=== PATIENT | male | born 1950 | race Caucasian/White ===

== ENCOUNTER 2017-03-03 14:34 | Inpatient (IN) | payer BC ==
[~2017-03-03] VITALS: Ht 190.5 cm; Wt 121.5 kg
[~2017-03-03 14:34] MED LIST: CLBCR15 EXT; CRS10 PO; DPRCR15 EXT; IBUP-1050 PO; OMEG10007 PO; flax seed oil PO
--- NOTE | 2017-03-03 14:59 | EMERGENCY ROOM VISIT NOTE ---
History Report prepared by Yoana: Dameon Christina Under the Supervision of: Dr. Trista Rosenberg D.O. First contact with patient: 14:40 Chief Complaint: KIDNEY STONE Stated Complaint: PAIN IN L KIDNEY, SENT BY DR BARAJAS OFFICE History of Present Illness The patient is a 66 year old male who presents to the Emergency Room with complaints of persistent left flank pain since February 20, 2017. He notes the pain does not radiate. He currently rates his pain a 7/10 in severity. He denies any fevers, chills, urinary symptoms, leg swelling, rashes, or sores. He was recently seen at [facility] and was diagnosed with a .5 inch impassable left kidney stone. He was advised to come to the ED to have the on- call urologist evaluate his case. He has taken Advil for the pain. He has a family history of kidney stones. He denies taking any blood thinners. Source of History: patient Onset: February 20, 2017 Position: other (left flank ) Symptom Intensity: 7/10 Timing: other (persistent) Associated Symptoms: No fevers, No chills, No urinary symptoms, No rash Note: He notes left flank pain. He denies leg swelling or sores. Review of Systems See HPI for pertinent positives & negatives. A total of 10 systems reviewed and were otherwise negative. Past Medical & Surgical Medical Problems: (1) JESSICA (acute kidney injury) (2) Asthma (3) Bronchitis (4) Carpal tunnel syndrome (5) HTN (hypertension) (6) Ureteral mass Surgical Problems: (1) History of bilateral knee replacement Family History FH: cancer Hypertension Social History Smoking Status: Never Smoker Smokeless Tobacco Use: No Alcohol Use: none Drug Use: none Marital Status: Housing Status: lives with significant other Occupation Status: retired Current/Historical Medications Scheduled Amlodipine (Norvasc), 5 MG PO HS Lisinopril (Zestril), 20 MG PO DAILY Montelukast Sodium (Singulair), 10 MG PO DAILY Nitrofurantoin Macrocrystals (Macrodantin), 1 CAP PO BID Simvastatin (Zocor), 40 MG PO DAILY Scheduled PRN Acetaminophen (Mapap), 650 MG PO Q6H PRN for Pain or Fever Cetirizine (Zyrtec), 10 MG PO DAILY PRN for ALLERGIES Doxepin (Sinequan), 10 MG PO TID PRN for BREAKOUT Tramadol HCl (Tramadol HCl), 1 TAB PO Q8H PRN for severe pain Allergies Coded Allergies: Amoxicillin (Unverified Allergy, Severe, SEVER HIVES AND SWELLING, ) Penicillins (Verified Allergy, Intermediate, SWELLING IN HANDS AND LEGS, 03/03/17) Latex1 -Allergic Contact Dermititis (Verified Allergy, Mild, HANDS BURNING AND ITCHING, 03/03/17) Physical Exam Vital Signs Date Time Temp Pulse Resp B/P (MAP) Pulse Ox O2 Delivery O2 Flow Rate FiO2 03/03/17 16:01 68 18 149/98 98 Room Air 03/03/17 14:39 36.8 88 18 182/116 96 Room Air Physical Exam GENERAL: alert, well appearing, well nourished, no distress, non-toxic EYE EXAM: normal conjunctiva, PERRL and EOM's grossly intact OROPHARYNX: no exudate, no erythema, lips, buccal mucosa, and tongue normal and mucous membranes are moist NECK: supple, no nuchal rigidity, no adenopathy, non-tender LUNGS: Clear to auscultation. Normal chest wall mechanics HEART: no murmurs, S1 normal and S2 normal ABDOMEN: abdomen soft, non-tender, normo-active bowel sounds, no masses, no rebound or guarding. BACK: Back is symmetrical on inspection and there is no deformity, no midline tenderness, no CVA tenderness. SKIN: no rashes and no bruising UPPER EXTREMITIES: upper extremities are grossly normal. LOWER EXTREMITIES: No pitting edema. NEURO EXAM: Normal sensorium, cranial nerves II-XII grossly intact, normal speech, no gross weakness of arms, no gross weakness of legs. Medical Decision & Procedures ER Provider Diagnostic Interpretation: Radiology results have been interpreted by the radiologist and reviewed by me. CT OF THE ABDOMEN AND PELVIS WITHOUT CONTRAST, STONE PROTOCOL CLINICAL HISTORY: Left flank pain. Possible stone on ultrasound. COMPARISON STUDY: None. TECHNIQUE: Helical axial images of the abdomen and pelvis were obtained without IV or oral contrast according to renal stone protocol. A dose lowering technique was utilized adhering to the principles of ALARA. FINDINGS: Visualized portions of the lower chest demonstrate moderate cardiomegaly. Unenhanced images of liver, spleen, adrenal glands and pancreas are unremarkable. There is no right hydronephrosis. Note is made of a nonobstructing 9 mm distal right ureteral calculus. There is mild left hydronephrosis with moderate left perinephric infiltration. The left ureter is dilated to the level of the mid ureter with distention of the ureter with a suspected soft tissue mass that measures approximately 2.4 x 1.3 x 1 cm and is shown on axial image 351 of 536. There is extensive para-aortic and left iliac lymphadenopathy. An index left para-aortic lymph node measures 4.4 x 2.6 cm. An index left common iliac node measures 3.2 x 2 cm and an index left internal iliac node measures 2.7 x 2 cm. A borderline enlarged left external iliac node measures 1 cm. No suspicious osseous lesions are present. There is no evidence for a bowel obstruction. A 3.4 cm water attenuation left renal lesion is suboptimally assessed on this exam but favors a cyst. IMPRESSION: 1. Mild left hydroureteronephrosis due to a suspected obstructing mid left ureteral mass that measures approximately 2.3 x 1.3 x 1 cm. 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 Urologic consultation is recommended. 2. Extensive paraaortic and left iliac chain lymphadenopathy which is consistent with a neoplastic process. The degree of lymphadenopathy is greater than expected given the size of the left ureteral lesion however cindy spread of TCC is the diagnosis of exclusion. Lymphoma could appear similar although is considered less likely. 3. Nonobstructing 9 mm distal right ureteral calculus. No upstream dilatation. Electronically signed by: Kranthi Vasquez M.D. 03/03/2017 4:11 PM Dictated Date/Time: 03/03/2017 3:50 PM Laboratory Results Test 03/03/17 15:00 03/03/17 15:03 Urine Color YELLOW Urine Appearance CLEAR (CLEAR) Urine pH 5.0 (4.5-7.5) Urine Specific Etta 1.016 (1.000-1.030) Urine Protein NEG (NEG) Urine Glucose (UA) NEG (NEG) Urine Ketones NEG (NEG) Urine Occult Blood NEG (NEG) Urine Nitrite NEG (NEG) Urine Bilirubin NEG (NEG) Urine Urobilinogen NEG (NEG) Urine Leukocyte Esterase NEG (NEG) Immature Granulocyte % (Auto) 0.5 % White Blood Count 6.28 K/uL (4.8-10.8) Red Blood Count 4.81 M/uL (4.7-6.1) Hemoglobin 15.0 g/dL (14.0-18.0) Hematocrit 45.0 % (42-52) Mean Corpuscular Volume 93.6 fL (80-100) Mean Corpuscular Hemoglobin 31.2 pg (25-34) Mean Corpuscular Hemoglobin Concent 33.3 g/dl (32-36) Platelet Count 173 K/uL (130-400) Mean Platelet Volume 9.8 fL (7.4-10.4) Neutrophils (%) (Auto) 63.1 % Lymphocytes (%) (Auto) 22.1 % Monocytes (%) (Auto) 8.4 % Eosinophils (%) (Auto) 5.1 % Basophils (%) (Auto) 0.8 % Neutrophils # (Auto) 3.96 K/uL (1.4-6.5) Lymphocytes # (Auto) 1.39 K/uL (1.2-3.4) Monocytes # (Auto) 0.53 K/uL (0.11-0.59) Eosinophils # (Auto) 0.32 K/uL (0-0.5) Basophils # (Auto) 0.05 K/uL (0-0.2) Immature Granulocyte # (Auto) 0.03 K/uL (0.00-0.02) Prothrombin Time 10.6 SECONDS (9.0-12.0) Prothromb Time International Ratio 1.0 (0.9-1.1) Total Bilirubin 0.7 mg/dl (0.2-1) Aspartate Amino Transf (AST/SGOT) 24 U/L (15-37) Alanine Aminotransferase (ALT/SGPT) 30 U/L (12-78) Alkaline Phosphatase 97 U/L (45-117) Total Protein 8.1 gm/dl (6.4-8.2) Albumin 4.0 gm/dl (3.4-5.0) Globulin 4.1 gm/dl (2.5-4.0) Albumin/Globulin Ratio 1.0 (0.9-2) Hepatitis C Antibody Screen NEG (NEG) Laboratory results per my review. ECG Indication: other (left flank pain) Rate (beats per minute): 82 Rhythm: normal sinus Findings: 1st degree AV block, no acute ischemic change, other (Normal axis. Normal QRS and QTC. Abherrent baseline. ) ED Course 1442: The patient was evaluated in room C3. A complete history and physical exam was performed. 1455: Results from [facility] was faxed and the US report shows a 12 mm stone in proximal left ureter. 1600: I reassessed the patient at this time. I updated on all results. The patient is in need of additional evaluation. 1625: I spoke with roel Gonzalez. We discussed the patients case. The patient will be evaluated by the [facility] for further management. 1659: I spoke with tona Greene. We discussed the patients case. He will consult with the patient. Medical Decision Prior records/ancillary studies reviewed. Triage Nursing notes reviewed. The patient's history was concerning for kidney stone. Differential diagnosis: Etiologies such as renal colic, appendicitis, diverticulitis, mesenteric ischemia, aortic pathology, infections, inflammatory bowel disease, PUD, biliary pathology, UTI, as well as others were entertained. Patient well-appearing here despite acute renal failure, kidney stone, as well as ureteral mass noted on CT. Patient offered pain medication and he declined. No evidence of bacteremia/sepsis, no evidence of UTI or pyelonephritis. Large stones seen on the right, however patient's pain more on the left, more consistent with the ureteral mass and hydronephrosis seen. Medication Reconcilliation Current Medication List: was personally reviewed by me Blood Pressure Screening Patient's blood pressure: Elevated blood pressure Blood pressure disposition: Elevated BP felt to be situational Consults Time Called: 1620 Consulting Physician: roel Gonzalez Returned Call: 1625 I spoke with roel Gonzalez. We discussed the patients case. The patient will be evaluated by the [facility] for further management. Additional Consults: Time Called: 165 Consulted Physician: tona Greene Returned Call: 165 Additional Comments: I spoke with tona Greene. We discussed the patients case. He will consult with the patient. Impression Primary Impression: Left-sided back pain Additional Impressions: Left ureteral calculus Ureteral mass Acute renal failure Scribe Attestation The scribe's documentation has been prepared under my direction and personally reviewed by me in its entirety. I confirm that the note above accurately reflects all work, treatment, procedures, and medical decision making performed by me. Departure Information Dispostion Being Evaluated By Hospitalist Prescriptions Tramadol HCl (Tramadol HCl) 50 Mg Tab 1 TAB PO Q8H Y for severe pain for 5 Days, #15 TAB 0 Refills Prov: Kei Alexis M.D. 03/04/17 Lisinopril (Zestril) 20 Mg Tab 20 MG PO DAILY for 30 Days, #30 TAB Prov: Kei Alexis M.D. 03/04/17 Amlodipine (Norvasc) 5 Mg Tab 5 MG PO HS for 30 Days, #30 TAB Prov: Kei Alexis M.D. 03/04/17 Nitrofurantoin Macrocrystals (Macrodantin) 50 Mg Cap 1 CAP PO BID for 7 Days, #14 CAP Prov: Kei Alexis M.D. 03/04/17 Acetaminophen (MAPAP) 325 Mg Tab 650 MG PO Q6H Y for Pain or Fever for 5 Days, #16 TAB 0 Refills Take 1 tablet By mouth every 6 hours for pain relief Prov: Kei Alexis M.D. 03/04/17 Referrals Joel Gaona D.O. (PCP) Patient Instructions [facility] Problem Qualifiers
[2017-03-03 15:10] LABS: URINE APPEARANCE CLEAR (CLEAR); URINE BILIRUBIN NEG (NEG); URINE COLOR YELLOW; URINE NITRITE NEG (NEG); URINE SPECIFIC GRAVITY 1.016 (1.000-1.030); UROBILINOGEN NEG (NEG); ZZUR CULT IF INDIC CLEAN CATCH NO
[2017-03-03 15:15] LABS: MANUAL MICROSCOPIC REQUIRED? NO; REVIEW REQ? NO
[2017-03-03 15:19] LABS: BASO % 0.8 %; BASO ABS # 0.05 K/uL (0-0.2); COMPLETE YES; EOS % 5.1 %; IG% 0.5 %; LYMPH % 22.1 %; LYMPH ABS # 1.39 K/uL (1.2-3.4); MEAN CELL VOLUME 93.6 fL (80-100); MEAN CORPUSCULAR HEMOGLOBIN 31.2 pg (25-34); MEAN CORPUSCULAR HGB CONC 33.3 g/dl (32-36); MEAN PLATELET VOLUME 9.8 fL (7.4-10.4); MONO % 8.4 %; NEUT % 63.1 %; PLATELET COUNT 173 K/uL (130-400); RED BLOOD COUNT 4.81 M/uL (4.7-6.1); WHITE BLOOD COUNT 6.28 K/uL (4.8-10.8)
[2017-03-03] MEDS ORDERED: HYDR12.55 PO (15:25)
[2017-03-03] MEDS ORDERED: DOXE10CA PO (15:25)
[2017-03-03] MEDS ORDERED: LISI40TA PO (15:25)
[2017-03-03] MEDS ORDERED: SIMV40TA2 PO (15:25)
[2017-03-03] MEDS ORDERED: CETI10TA84 PO (15:25)
[2017-03-03] MEDS ORDERED: MONT1TAB3 PO (15:25)
[2017-03-03 15:27] LABS: PROTHROMBIN TIME (PATIENT) 10.6 SECONDS (9.0-12.0)
[2017-03-03 15:38] LABS: BUN/CREATININE RATIO 16.1 (10-20); CREATININE 2.31 mg/dl (0.60-1.40); POTASSIUM 3.8 mmol/L (3.5-5.1)
[2017-03-03 16:01] VITALS: O2SAT 98
--- NOTE | 2017-03-03 16:12 | DIAGNOSTIC IMAGING REPORT ---
CT OF THE ABDOMEN AND PELVIS WITHOUT CONTRAST, STONE PROTOCOL CLINICAL HISTORY: Left flank pain. Possible stone on ultrasound. COMPARISON STUDY: None. TECHNIQUE: Helical axial images of the abdomen and pelvis were obtained without IV or oral contrast according to renal stone protocol. A dose lowering technique was utilized adhering to the principles of ALARA. FINDINGS: Visualized portions of the lower chest demonstrate moderate cardiomegaly. Unenhanced images of liver, spleen, adrenal glands and pancreas are unremarkable. There is no right hydronephrosis. Note is made of a nonobstructing 9 mm distal right ureteral calculus. There is mild left hydronephrosis with moderate left perinephric infiltration. The left ureter is dilated to the level of the mid ureter with distention of the ureter with a suspected soft tissue mass that measures approximately 2.4 x 1.3 x 1 cm and is shown on axial image 351 of 536. There is extensive para-aortic and left iliac lymphadenopathy. An index left para-aortic lymph node measures 4.4 x 2.6 cm. An index left common iliac node measures 3.2 x 2 cm and an index left internal iliac node measures 2.7 x 2 cm. A borderline enlarged left external iliac node measures 1 cm. No suspicious osseous lesions are present. There is no evidence for a bowel obstruction. A 3.4 cm water attenuation left renal lesion is suboptimally assessed on this exam but favors a cyst. IMPRESSION: 1. Mild left hydroureteronephrosis due to a suspected obstructing mid left ureteral mass that measures approximately 2.3 x 1.3 x 1 cm. 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 Urologic consultation is recommended. 2. Extensive paraaortic and left iliac chain lymphadenopathy which is consistent with a neoplastic process. The degree of lymphadenopathy is greater than expected given the size of the left ureteral lesion however cindy spread of TCC is the diagnosis of exclusion. Lymphoma could appear similar although is considered less likely. 3. Nonobstructing 9 mm distal right ureteral calculus. No upstream dilatation. Electronically signed by: Kranthi Vasquez M.D. 03/03/2017 4:11 PM Dictated Date/Time: 03/03/2017 3:50 PM
[2017-03-03] MEDS ORDERED: ACETAMINOPHEN 325 MG TAB PO PRN (17:00)
--- NOTE | 2017-03-03 17:09 | History and Physical ---
History & Physical Date & Time of Service: Mar 03, 2017 at 16:44 Chief Complaint: Pain In L Kidney, Sent By Dr Finney Office Primary Care Physician: Joel Gaona D.O. History of Present Illness Mr. Rhoades was having pain in his side on 02/20 and he was worked up for blood in his urine so he was sent here after imaging to see a urologist urgently. He continues to have mild pain 3/10 on the left side. No n/v/d, eating and drinking well. ROS Constitutional: no chills, aches, sweats or fever Respiratory: no sob,cough, sputum, or wheezing Cardiac: no chest pain, palpitations, edema, orthopnea or lightheadedness GI: no abdominal pain, nausea, vomiting, diarrhea or constipation : no dysuria or hesitancy Extremities: no joint pain or weakness Skin: no rash All other systems reviewed and negative Pmhx: htn, hld Family History Father with colon ca - from complications from surgery Mother with htn Social History Smoking Status: Never Smoker Smokeless Tobacco Use: Yes (quit two years ago after 20 years or so of use) Alcohol Use: none Drug Use: none Marital Status: Housing status: lives with family Occupational Status: retired ([employer] for thirty years ) Immunizations History of Influenza Vaccine: No History of Tetanus Vaccine?: Yes History of Pneumococcal: No History of Hepatitis B Vaccine: Yes Allergies Coded Allergies: Amoxicillin (Unverified Allergy, Severe, SEVER HIVES AND SWELLING, ) Penicillins (Verified Allergy, Intermediate, SWELLING IN HANDS AND LEGS, 03/03/17) Latex1 -Allergic Contact Dermititis (Verified Allergy, Mild, HANDS BURNING AND ITCHING, 03/03/17) Home Medications Scheduled Hydrochlorothiazide (Hydrochlorothiazide), 12.5 MG PO DAILY Lisinopril (Zestril), 40 MG PO DAILY Montelukast Sodium (Singulair), 10 MG PO DAILY Simvastatin (Zocor), 40 MG PO DAILY Scheduled PRN Cetirizine (Zyrtec), 10 MG PO DAILY PRN for ALLERGIES Doxepin (Sinequan), 10 MG PO TID PRN for BREAKOUT Physical Exam Vital Signs Date Time Temp Pulse Resp B/P (MAP) Pulse Ox O2 Delivery O2 Flow Rate FiO2 03/03/17 16:01 68 18 149/98 98 Room Air 03/03/17 14:39 36.8 88 18 182/116 96 Room Air Diagnostics Laboratory Results Results Past 24 Hours Test 03/03/17 15:00 03/03/17 15:03 Range/Units Urine Color YELLOW Urine Appearance CLEAR CLEAR Urine pH 5.0 4.5-7.5 Urine Specific Vance 1.016 1.000-1.030 Urine Protein NEG NEG Urine Glucose (UA) NEG NEG Urine Ketones NEG NEG Urine Occult Blood NEG NEG Urine Nitrite NEG NEG Urine Bilirubin NEG NEG Urine Urobilinogen NEG NEG Urine Leukocyte Esterase NEG NEG White Blood Count 6.28 4.8-10.8 K/uL Red Blood Count 4.81 4.7-6.1 M/uL Hemoglobin 15.0 14.0-18.0 g/dL Hematocrit 45.0 42-52 % Mean Corpuscular Volume 93.6 80-100 fL Mean Corpuscular Hemoglobin 31.2 25-34 pg Mean Corpuscular Hemoglobin Concent 33.3 32-36 g/dl Platelet Count 173 130-400 K/uL Mean Platelet Volume 9.8 7.4-10.4 fL Neutrophils (%) (Auto) 63.1 % Lymphocytes (%) (Auto) 22.1 % Monocytes (%) (Auto) 8.4 % Eosinophils (%) (Auto) 5.1 % Basophils (%) (Auto) 0.8 % Neutrophils # (Auto) 3.96 1.4-6.5 K/uL Lymphocytes # (Auto) 1.39 1.2-3.4 K/uL Monocytes # (Auto) 0.53 0.11-0.59 K/uL Eosinophils # (Auto) 0.32 0-0.5 K/uL Basophils # (Auto) 0.05 0-0.2 K/uL RDW Standard Deviation 46.7 36.4-46.3 fL RDW Coefficient of Variation 13.6 11.5-14.5 % Immature Granulocyte % (Auto) 0.5 % Immature Granulocyte # (Auto) 0.03 0.00-0.02 K/uL Prothrombin Time 10.6 9.0-12.0 SECONDS Prothromb Time International Ratio 1.0 0.9-1.1 Sodium Level 138 136-145 mmol/L Potassium Level 3.8 3.5-5.1 mmol/L Chloride Level 104 98-107 mmol/L Carbon Dioxide Level 29 21-32 mmol/L Anion Gap 5.0 3-11 mmol/L Blood Urea Nitrogen 37 7-18 mg/dl Creatinine 2.31 0.60-1.40 mg/dl Est Creatinine Clear Calc Drug Dose 43.6 ml/min Estimated GFR () 32.7 Estimated GFR (Non- 28.2 BUN/Creatinine Ratio 16.1 10-20 Random Glucose 75 70-99 mg/dl Calcium Level 9.0 8.5-10.1 mg/dl Total Bilirubin 0.7 0.2-1 mg/dl Aspartate Amino Transf (AST/SGOT) 24 15-37 U/L Alanine Aminotransferase (ALT/SGPT) 30 12-78 U/L Alkaline Phosphatase 97 45-117 U/L Total Protein 8.1 6.4-8.2 gm/dl Albumin 4.0 3.4-5.0 gm/dl Globulin 4.1 2.5-4.0 gm/dl Albumin/Globulin Ratio 1.0 0.9-2 Impression Assessment and Plan Mr. Rhoades is a 66 year old man here for obstructing ureteral mass with mild hydronephrosis Obstructing ureteral mass with mild hydronephrosis - admit med/surg - consult urology - morphine prn for flank pain JESSICA - baseline creat 1.3, current creat 2.31 - prp am - hold lisinopril and hctz for now - NSS @ 150 HTN - prn hydralazine HLD - continue statin DVT proph - scds, hold on chemoproph until assessed by urology in case plans for OR I personally interviewed and examined the patient. I agree with history of present illness and physical exam mentioned above, I also performed my own history taking and examination. Past medical history and review of system has been obtained by myself I reviewed all pertinent labs and studies Reviewed current medications I discussed and formulated of the assessment and plan mentioned above by Mrs. Italia Morris Please refer to the Summary mentioned below. General Appearance: not in acute distress /thin Eyes: normal Sclerae, extraocular muscle intact ENT: hearing grossly normal Neck: supple Respiratory/Chest: normal air entry bilateral , no respiratory distress, no accessory muscle use, no rhonchi Cardiovascular: regular rate, rhythm, + systolic murmur Abdomen: Left flank tender, soft, no masses, but appears distended Extremities: no edema Neurologic/Psychiatric: Awake alert oriented only to place and person moves all extremities sensation intact cranial nerves II-12 appear to be intact Skin: normal color, warm/dry, no rash 66-year-old male presented to the ED with left flank pain CT scan abdomen revealed right renal stone, left ureteral mass with left hydro- Assessment 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 Acute kidney injury Right nonobstructive renal stone Hypertension Plan urology consult Hold nephrotoxic Left hydro-is only partial, with no hydro-nephrosis on the right side, I cannot explain his acute kidney injury, will start him on gentle IV fluid hydration DVT prophylaxis Eva Frederick MD, [facility] Level of Care Med/Surg Advanced Directives Existing Advance Directive: No Existing Living Will: Yes Existing Power of Staff Research Scientist: No Existing Health Care Proxy: No Resuscitation Status FULL RESUSCITATION VTE Prophylaxis VTE Risk Assessment Done? Y/N: Yes Risk Level: Moderate Given or contraindicated: SCD's Social Service Consult None Apply
[2017-03-03] MEDS ORDERED: MoRPHine SULFATE 2 MG/ML CARP IV PRN (17:15)
[2017-03-03] MEDS ORDERED: LORAZEPAM 0.5 MG TAB PO PRN (17:15)
[2017-03-03] MEDS ORDERED: HydrALAZINE HCL 20 MG/ML VIAL IV. PRN (17:15)
[2017-03-03 18:40] VITALS: BP 188/122; PULSE 93; TEMP 36.5; O2SAT 100
[2017-03-03 19:08] VITALS: BP 188/122; PULSE 93; TEMP 36.5; Ht 190.5 cm; Wt 121.5 kg
--- NOTE | 2017-03-03 19:08 | GENITOURINARY CONSULTATION ---
DATE OF CONSULTATION: 03/03/2017 REASON FOR THE CONSULT: Right distal ureteral stone and left ureteral mass with mild hydronephrosis and lymphadenopathy. HISTORY OF PRESENTATION: The patient is a 66-year-old male in generally good health until approximately 10 days ago when he had left flank pain. He at that time had a KUB and urinalysis. The KUB showed what appeared to be a distal stone on the right with some calcifications in his pelvis apparently from his family practice doctor per the patient and trace of blood in his urine. Because of this, he had a sonogram today and it was told that he had a large stone in his distal ureter and because of this, he was referred to the Emergency Room in [place] for further evaluation as he is originally from [place]. When he arrived here, he was having mild pain, but not severe enough to require medication. He had a noncontrast CT scan because his creatinine was 2.3, which shows a nonobstructing distal right ureteral stone that is 8-9 mm and a mid ureteral mass that appears to be obstructing the ureter per radiology with some large lymphadenopathy along the course of the ureter both above and below it. The CT scan is otherwise noncontributory. The patient denies any history of stones in the past. He denies any right flank pain as well. He does not have a history of smoking. He denies any chemical exposure. 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 The patient also denies any gross hematuria. His health is otherwise generally good except for some hypertension and hypercholesterolemia. PAST SURGICAL HISTORY: Significant for bilateral total knee replacements and bilateral carpal tunnel syndrome surgery. PAST MEDICAL HISTORY: Significant for high blood pressure and high cholesterol. ALLERGIES: HE HAS AN ALLERGY TO AMOXICILLIN AND LATEX. SOCIAL HISTORY: He rarely drinks, again he does not smoke. MEDICATIONS: Include hydrochlorothiazide, lisinopril, simvastatin, Singulair and doxepin. PHYSICAL EXAMINATION: GENERAL: The patient is a well-developed male in no apparent distress. HEENT: Unremarkable. LUNGS: Clear to auscultation. HEART: Normal S1, S2, without obvious murmur or gallop. ABDOMEN: He has mild left flank pain to percussion, but very mild right flank pain to percussion. Abdomen is benign and soft without any palpable masses. His inguinal areas without any palpable masses or hernia. GENITOURINARY: Testes are descended bilaterally without palpable mass. He has normal male phallus. Prostate is benign. LABORATORY DATA: He has normal urinalysis. His protime is normal. His white blood cell count is normal with a normal hematocrit and hemoglobin. His main abnormality in labs is his elevated creatinine of 2.31. Again, urine is free of blood and/or bacteria or pus. ASSESSMENT: Apparent left ureteral mass and right nonobstructing distal stone with mild renal insufficiency. I discussed with the patient that he ultimately needs a ureteroscopy on the left to try to confirm diagnosis and at the same time, it would make sense to do right ureteroscopy and laser lithotripsy. With regard to timing given this is 3 days before [place], the patient is not having pain severe enough, he was admitted prior to my seeing him by the hospitalist service because of this mass and elevated creatinine, we discussed making him n.p.o. after midnight tonight and reevaluating his creatinine in the morning, prepping him preoperatively for surgery and perhaps considering doing this on Monday semi electively so that he does not have to go home for [place] with stents in bilaterally and hematuria. Also, since it is not an urgent case, may have some advantages doing this on a regular day with full staffing available. Discussed with the patient, we are also trying to contact the urologist that are in the OR on Monday to confirm that they are available to do this. 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
[2017-03-03] MEDS: SODIUM CHLORIDE 0.9% 1000ML 1,000 ML IV SCH (19:24)
--- NOTE | 2017-03-03 19:37 | DIAGNOSTIC IMAGING REPORT ---
CHEST 2 VIEWS ROUTINE CLINICAL HISTORY: Preoperative chest COMPARISON STUDY: 02/28/2007 FINDINGS: The heart is normal in size. There is aortic tortuosity. There is no failure. There is no focal pulmonary consolidation. There are no pleural effusions.[ IMPRESSION: No active disease in the chest. Electronically signed by: Natalio Martinez M.D. 03/03/2017 7:36 PM Dictated Date/Time: 03/03/2017 7:35 PM
--- NOTE | 2017-03-03 19:41 | DIAGNOSTIC IMAGING REPORT ---
KUB CLINICAL HISTORY: Right ureteral calculus COMPARISON STUDY: CT scan dated 03/03/2017 FINDINGS: There is no evidence of pathologic bowel dilatation. Headaches cell calcification within the right upper quadrant, was demonstrated to be hepatic on the prior CT scan. There are multiple pelvic basin calcifications. A 7 mm calcification on the right is felt to represent the patient's recently described distal right ureteral calculus no renal calculi are visualized. IMPRESSION: 1. No evidence of pathologic bowel dilatation 2. 7 mm distal right ureteral calculus Electronically signed by: Natalio Martinez M.D. 03/03/2017 7:40 PM Dictated Date/Time: 03/03/2017 7:37 PM
[2017-03-03 20:12] VITALS: BP 172/108; PULSE 95
[2017-03-03 23:23] VITALS: BP 168/93; PULSE 86; TEMP 36.8; O2SAT 96
[2017-03-04] MEDS: SODIUM CHLORIDE 0.9% 1000ML 1,000 ML IV SCH ×2 (01:25→08:17)
[2017-03-04 03:36] VITALS: BP 154/90; PULSE 81
[2017-03-04 06:53] LABS: HEMATOCRIT 40.8 % (42-52); MEAN CELL VOLUME 91.7 fL (80-100); MEAN CORPUSCULAR HGB CONC 33.8 g/dl (32-36); MEAN PLATELET VOLUME 9.6 fL (7.4-10.4); PLATELET COUNT 175 K/uL (130-400); RED BLOOD COUNT 4.45 M/uL (4.7-6.1); WHITE BLOOD COUNT 6.82 K/uL (4.8-10.8)
[2017-03-04 07:05] LABS: BUN/CREATININE RATIO 14.9 (10-20); CALCIUM 8.7 mg/dl (8.5-10.1); CREATININE 2.06 mg/dl (0.60-1.40); POTASSIUM 3.8 mmol/L (3.5-5.1)
[2017-03-04 07:31] VITALS: BP 159/87; PULSE 82; TEMP 36.6; O2SAT 96
[2017-03-04] MEDS ORDERED: SIMVASTATIN 40 MG TAB PO SCH (09:00)
[2017-03-04] MEDS ORDERED: MONTELUKAST SOD 10 MG TAB PO SCH (09:00)
[2017-03-04] MEDS ORDERED: LISI-725 PO (10:41)
[2017-03-04] MEDS ORDERED: NITR1CAP33 PO (10:41)
[2017-03-04] MEDS ORDERED: AMLO-110 PO (10:41)
[2017-03-04] MEDS ORDERED: ACET-1047 PO (10:41)
--- NOTE | 2017-03-04 10:45 | Discharge Instructions ---
Discharge Instructions Date of Service Mar 04, 2017. Admission Reason for Admission: Terrance(Acute Kidney Injury) Discharge Discharge Diagnosis / Problem: left ureteral mass causing obstruction Discharge Goals Goal(s): Decrease discomfort, Improve function Activity Recommendations Activity Limitations: resume your previous activity . Instructions / Follow-Up Instructions / Follow-Up Call Dr. Ferrell's Office in early AM on Monday to get procedure done to alleviate this problem. I also changed medications for blood pressure given this problem. Diuretics were stopped. Amlodipine will replace this and should be taken at night, While lisinopril will be decreased to 20 mg PO daily in the morning. This combination should help with your blood pressure while also protecting your kidneys. Do not take anti inflammatory meds for pain like Motrin, Ibuprofen, Aleve, naproxen. For now only take medicine that we prescribed. Current Hospital Diet Patient's current hospital diet: AHA Diet (Heart Healthy) Discharge Diet Recommended Diet: AHA Diet (Heart Healthy) Pending Studies Studies pending at discharge: no Medical Emergencies . Who to Call and When: Medical Emergencies: If at any time you feel your situation is an emergency, please call 911 immediately. . Non-Emergent Contact Non-Emergency issues call your: Primary Care Provider Call Non-Emergent contact if: you have a fever, your pain is not controlled . . "Provider Documentation" section prepared by Kei Alexis. . VTE Core Measure Inpt VTE Proph given/why not?: SCD's
[2017-03-04] MEDS ORDERED: ULT50X PO (10:54)
--- NOTE | 2017-03-04 11:06 | Progress Note ---
Subjective Date of Service: Mar 04, 2017. Subjective Pt evaluation today including: conversation w/ patient, physical exam, chart review, lab review, conversation w/ lead sales consultant Pain: minimal Discussed with pt and hospitalist and OR and Dr. Escamilla . Pt w/o pain . He will be discharged for r ureteroscopy and laser litho and left ureteroscopy and ureteral biopsy on Monday. Pt w/o pain but will be d/latrice on lortab and macrodantin. All questions about procedure answered Problem List Medical Problems: (1) Acute renal failure Status: Acute (2)right ureteral calculus Status: Acute (3) Left-sided back pain secondary to l ureteral mass Status: Acute Review of Systems Constitutional: No fever, No chills Abdomen: No pain Objective Vital Signs Date Time Temp Pulse Resp B/P (MAP) Pulse Ox O2 Delivery O2 Flow Rate FiO2 03/04/17 08:00 Room Air 03/04/17 07:31 36.6 82 19 159/87 (111) 96 Room Air 03/04/17 03:36 81 154/90 (111) 03/03/17 23:33 Room Air 03/03/17 23:23 36.8 86 16 168/93 (118) 96 Room Air 03/03/17 20:12 95 172/108 (129) 03/03/17 19:08 36.5 93 18 188/122 Room Air 03/03/17 18:40 36.5 93 18 188/122 (144) 100 Room Air 03/03/17 16:01 68 18 149/98 98 Room Air 03/03/17 14:39 36.8 88 18 182/116 96 Room Air Physical Exam Abdomen: normal bowel sounds, non tender Laboratory Results Last 24 Hours Test 03/03/17 15:00 03/03/17 15:03 03/04/17 06:20 Urine Color YELLOW Urine Appearance CLEAR Urine pH 5.0 Urine Specific [place] 1.016 Urine Protein NEG Urine Glucose (UA) NEG Urine Ketones NEG Urine Occult Blood NEG Urine Nitrite NEG Urine Bilirubin NEG Urine Urobilinogen NEG Urine Leukocyte Esterase NEG White Blood Count 6.28 K/uL 6.82 K/uL Red Blood Count 4.81 M/uL 4.45 M/uL Hemoglobin 15.0 g/dL 13.8 g/dL Hematocrit 45.0 % 40.8 % Mean Corpuscular Volume 93.6 fL 91.7 fL Mean Corpuscular Hemoglobin 31.2 pg 31.0 pg Mean Corpuscular Hemoglobin Concent 33.3 g/dl 33.8 g/dl Platelet Count 173 K/uL 175 K/uL Mean Platelet Volume 9.8 fL 9.6 fL Neutrophils (%) (Auto) 63.1 % Lymphocytes (%) (Auto) 22.1 % Monocytes (%) (Auto) 8.4 % Eosinophils (%) (Auto) 5.1 % Basophils (%) (Auto) 0.8 % Neutrophils # (Auto) 3.96 K/uL Lymphocytes # (Auto) 1.39 K/uL Monocytes # (Auto) 0.53 K/uL Eosinophils # (Auto) 0.32 K/uL Basophils # (Auto) 0.05 K/uL RDW Standard Deviation 46.7 fL 44.8 fL RDW Coefficient of Variation 13.6 % 13.4 % Immature Granulocyte % (Auto) 0.5 % Immature Granulocyte # (Auto) 0.03 K/uL Prothrombin Time 10.6 SECONDS Prothromb Time International Ratio 1.0 Sodium Level 138 mmol/L 141 mmol/L Potassium Level 3.8 mmol/L 3.8 mmol/L Chloride Level 104 mmol/L 108 mmol/L Carbon Dioxide Level 29 mmol/L 28 mmol/L Anion Gap 5.0 mmol/L 5.0 mmol/L Blood Urea Nitrogen 37 mg/dl 31 mg/dl Creatinine 2.31 mg/dl 2.06 mg/dl Est Creatinine Clear Calc Drug Dose 43.6 ml/min 48.9 ml/min Estimated GFR () 32.7 37.5 Estimated GFR (Non- 28.2 32.4 BUN/Creatinine Ratio 16.1 14.9 Random Glucose 75 mg/dl 95 mg/dl Calcium Level 9.0 mg/dl 8.7 mg/dl Total Bilirubin 0.7 mg/dl Aspartate Amino Transf (AST/SGOT) 24 U/L Alanine Aminotransferase (ALT/SGPT) 30 U/L Alkaline Phosphatase 97 U/L Total Protein 8.1 gm/dl Albumin 4.0 gm/dl Globulin 4.1 gm/dl Albumin/Globulin Ratio 1.0 Hepatitis C Antibody Screen NEG Assessment and Plan Discussed with OR and Dr. Escamilla and will add pt on for right ureteroscopy and laser litho and r stent and l ureteroscopy and biopsy of ureteral mass and left stent . Reviewed risks with pt. Will d/c today for f/u Monday . Pt to call for problems
[2017-03-04 11:07] VITALS: BP 159/87; PULSE 82; TEMP 36.6; O2SAT 96
[2017-03-07] MEDS ORDERED: ULT50X PO (16:44)
[2017-03-07] MEDS ORDERED: PHEN95TA14 PO (16:44)
--- NOTE | 2017-03-12 12:25 | Discharge Summary ---
Discharge Summary Date of Service Mar 04, 2017. Discharge Summary Admission Date: Mar 03, 2017 at 17:01 Discharge Date: Mar 04, 2017 Discharge Disposition: Home Principal Diagnosis: Apparent left ureteral mass and right nonobstructing distal Problems/Secondary Diagnoses: Hypertension Immunizations: Have You Had Influenza Vaccine: No History of Tetanus Vaccine?: Yes History of Pneumococcal: No History of Hepatitis B Vaccine: Yes Consultations: DATE OF CONSULTATION: 03/03/2017 REASON FOR THE CONSULT: Right distal ureteral stone and left ureteral mass with mild hydronephrosis and lymphadenopathy. HISTORY OF PRESENTATION: The patient is a 66-year-old male in generally good health until approximately 10 days ago when he had left flank pain. He at that time had a KUB and urinalysis. The KUB showed what appeared to be a distal stone on the right with some calcifications in his pelvis apparently from his family practice doctor per the patient and trace of blood in his urine. Because of this, he had a sonogram today and it was told that he had a large stone in his distal ureter and because of this, he was referred to the Emergency Room in [place] for further evaluation as he is originally from [place]. When he arrived here, he was having mild pain, but not severe enough to require medication. He had a noncontrast CT scan because his creatinine was 2.3, which shows a nonobstructing distal right ureteral stone that is 8-9 mm and a mid ureteral mass that appears to be obstructing the ureter per radiology with some large lymphadenopathy along the course of the ureter both above and below it. The CT scan is otherwise noncontributory. The patient denies any history of stones in the past. He denies any right flank pain as well. He does not have a history of smoking. He denies any chemical exposure. 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 The patient also denies any gross hematuria. His health is otherwise generally good except for some hypertension and hypercholesterolemia. PAST SURGICAL HISTORY: Significant for bilateral total knee replacements and bilateral carpal tunnel syndrome surgery. PAST MEDICAL HISTORY: Significant for high blood pressure and high cholesterol. ALLERGIES: HE HAS AN ALLERGY TO AMOXICILLIN AND LATEX. SOCIAL HISTORY: He rarely drinks, again he does not smoke. MEDICATIONS: Include hydrochlorothiazide, lisinopril, simvastatin, Singulair and doxepin. PHYSICAL EXAMINATION: GENERAL: The patient is a well-developed male in no apparent distress. HEENT: Unremarkable. LUNGS: Clear to auscultation. HEART: Normal S1, S2, without obvious murmur or gallop. ABDOMEN: He has mild left flank pain to percussion, but very mild right flank pain to percussion. Abdomen is benign and soft without any palpable masses. His inguinal areas without any palpable masses or hernia. GENITOURINARY: Testes are descended bilaterally without palpable mass. He has normal male phallus. Prostate is benign. LABORATORY DATA: He has normal urinalysis. His protime is normal. His white blood cell count is normal with a normal hematocrit and hemoglobin. His main abnormality in labs is his elevated creatinine of 2.31. Again, urine is free of blood and/or bacteria or pus. ASSESSMENT: Apparent left ureteral mass and right nonobstructing distal stone with mild renal insufficiency. I discussed with the patient that he ultimately needs a ureteroscopy on the left to try to confirm diagnosis and at the same time, it would make sense to do right ureteroscopy and laser lithotripsy. With regard to timing given this is 3 days before [place], the patient is not having pain severe enough, he was admitted prior to my seeing him by the hospitalist service because of this mass and elevated creatinine, we discussed making him n.p.o. after midnight tonight and reevaluating his creatinine in the morning, prepping him preoperatively for surgery and perhaps considering doing this on Monday semi electively so that he does not have to go home for [place] with stents in bilaterally and hematuria. Also, since it is not an urgent case, may have some advantages doing this on a regular day with full staffing available. Discussed with the patient, we are also trying to contact the urologist that are in the OR on Monday to confirm that they are available to do this. 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 Medication Reconciliation New Medications: Amlodipine (Norvasc) 5 Mg Tab 5 MG PO HS for 30 Days, #30 TAB Lisinopril (Zestril) 20 Mg Tab 20 MG PO DAILY for 30 Days, #30 TAB Acetaminophen (Mapap) 325 Mg Tab 650 MG PO Q6H PRN for Pain or Fever for 5 Days, #16 TAB 0 Refills Take 1 tablet By mouth every 6 hours for pain relief Continued Medications: Cetirizine (Zyrtec) 10 Mg Tab 10 MG PO DAILY PRN for ALLERGIES Doxepin (Sinequan) 10 Mg Cap 10 MG PO TID PRN for BREAKOUT Montelukast Sodium (Singulair) 10 Mg Tab 10 MG PO DAILY Simvastatin (Zocor) 40 Mg Tab 40 MG PO DAILY Discontinued Medications: Hydrochlorothiazide (Hydrochlorothiazide) 12.5 Mg Tab 12.5 MG PO DAILY Lisinopril (Zestril) 40 Mg Tab 40 MG PO DAILY Discharge Exam Review of Systems: Constitutional: No fever, No chills Eyes: No worsening of vision ENT: No hearing loss Respiratory: No cough, No sputum Cardiovascular: No chest pain, No orthopnea Abdomen: No pain, No nausea Neurologic: No memory loss, No paralysis Psychiatric: No depression symptoms, No anhedonism Endocrine: No fatigue Hematologic / Lymphatic: No abnormal bleeding/bruising Integumentary: No rash, No itch Physical Exam: General Appearance: WD/WN, no apparent distress Neck: supple, no adenopathy Respiratory/Chest: chest non-tender, lungs clear, normal breath sounds Cardiovascular: regular rate, rhythm, no edema, no murmur Abdomen / GI: normal bowel sounds, non tender, soft Extremities: normal inspection, no calf tenderness Skin: normal color, warm/dry Lymphatic: no adenopathy Hospital Course Patient admitted for right ureteral mass. Discussed case with urology. Will have patient discharged over the weekend and return for to OR on Monday. In regards to his medical manaegemnt, pain meds prescribed as above. Urology will add pt on for right ureteroscopy and laser litho and r stent and l ureteroscopy and biopsy of ureteral mass and left stent . In regards to hypertension, changed diuretics to CCB. Decreased lisinopril and changed time of BP meds. Discussed plan with patient and answered all of his questions. I also recommended to stop NSAIDs. Total Time Spent: Greater than 30 minutes This includes examination of the patient, discharge planning, medication reconciliation, and communication with other providers. Discharge Instructions Please refer to the electronic Patient Visit Report (Discharge Instructions) for additional information. Follow-Up F/U as per discharge instructions
== END 2017-03-04 12:00 | disposition home or self-care (01) | DRG 694 ==
LOC: C.EDB 14:36 → C.MSN 17:01 → ENRESERV 17:24
PROVIDERS: ADMIT Internal Medicine; ATTEND Internal Medicine
DX: N13.1 Hydronephrosis with ureteral stricture, not elsewhere classified (principal); N13.2 Hydronephrosis with renal and ureteral calculous obstruction; N17.9 Acute kidney failure, unspecified; N28.9 Disorder of kidney and ureter, unspecified; J45.909 Unspecified asthma, uncomplicated; I10 Essential (primary) hypertension; Z79.899 Other long term (current) drug therapy; Z84.1 Family history of disorders of kidney and ureter; Z82.49 Family history of ischemic heart disease and other diseases of the circulatory system; Z80.0 Family history of malignant neoplasm of digestive organs

== ENCOUNTER 2017-03-07 11:42 | Day surgery (SDC) | payer BC ==
[~2017-03-07] VITALS: Ht 190.5 cm; Wt 120.4 kg
[~2017-03-07 11:42] MED LIST changes: +ACET-1047 PO; +AMLO5TAB3 PO; +CETI10TA84 PO; +CIPROFLOXACIN / D5W 400 MG IV SCH; +CIPROFLOXACIN 200MG / D5W IV SCH; -CLBCR15 EXT; -CRS10 PO; +DOXE10CA PO; -DPRCR15 EXT; -IBUP-1050 PO; +LISI-725 PO; +MONT1TAB3 PO; +NITR1CAP33 PO; -OMEG10007 PO; +SIMV40TA2 PO; +ULT50X PO; -flax seed oil PO
[2017-03-07] MEDS ORDERED: ASPI81TA28 PO (12:10)
[2017-03-07] MEDS ORDERED: CLOB-85 TOP (12:10)
[2017-03-07] MEDS ORDERED: OMEG10007 PO (12:11)
[2017-03-07 12:14] VITALS: BP 146/98; PULSE 99; TEMP 36.4; O2SAT 96; Ht 190.5 cm; Wt 120.4 kg
[2017-03-07] MEDS ORDERED: MIDAZOLAM HCL 1 MG/ML 2ML VIAL ONE (14:50)
[2017-03-07] MEDS ORDERED: FENTANYL CITRATE INJ 50 MCG/1 ML 2 ML VIAL ONE ×2 (14:50→17:50)
--- NOTE | 2017-03-07 15:42 | History and Physical ---
History & Physical Date Mar 07, 2017. History of Present Illness The patient is a 66 year old male with complaints of right ureteral stone and left hydronephrosis with concerns for ureteral malignancy and retroperitoneal adenopathy. - compromised renal function - minimal pain Past Medical/Surgical History Medical Problems: (1) JESSICA (acute kidney injury) (2) Asthma (3) Bronchitis (4) Carpal tunnel syndrome (5) HTN (hypertension) (6) Ureteral mass Surgical Problems: (1) History of bilateral knee replacement Additional History Hepatic Disease: No Endocrine Disorder: No Kidney Disease: Yes Hypertension: Yes Heart Disease: No Bleeding Tendencies: No Infectious Diseases: No Allergies Coded Allergies: Amoxicillin (Verified Allergy, Severe, SEVER HIVES AND SWELLING, 03/07/17) Penicillins (Verified Allergy, Intermediate, SWELLING IN HANDS AND LEGS, 03/07/17) Latex1 -Allergic Contact Dermititis (Verified Allergy, Mild, HANDS BURNING AND ITCHING, 03/07/17) Home Medications Scheduled Amlodipine (Norvasc), 5 MG PO HS Aspirin (Aspirin Ec), 81 MG PO DAILY Fish Oil ([place]-3), 1 CAP PO DAILY Lisinopril (Zestril), 20 MG PO DAILY Montelukast Sodium (Singulair), 10 MG PO DAILY Nitrofurantoin Macrocrystals (Macrodantin), 1 CAP PO BID Simvastatin (Zocor), 40 MG PO DAILY Scheduled PRN Acetaminophen (Mapap), 650 MG PO Q6H PRN for Pain or Fever Cetirizine (Zyrtec), 10 MG PO DAILY PRN for ALLERGIES Clobetasol Propionate Emulsion (Clobetasol Propionate), TOP BID PRN for rash Doxepin (Sinequan), 10 MG PO TID PRN for BREAKOUT Tramadol HCl (Tramadol HCl), 1 TAB PO Q8H PRN for severe pain Physical Examination Skin: warm/dry Eyes: normal inspection ENT: normal ENT inspection Neck: supple Respiratory/Chest: lungs clear, normal breath sounds Cardiovascular: regular rate, rhythm, no edema Abdomen / GI: normal bowel sounds Back: normal inspection Extremities: normal inspection Genitourinary - Male: normal male genitalia Neurologic/Psych: alert, oriented x 3 Diagnosis B/l hydronephrosis;renal dysfunction; R nephrolithiasis; 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 L URS, biopsy, possible laser fulguration/ destruction of tumor and stent placement.
[2017-03-07] MEDS ORDERED: CONRAY 30% 150ML BOTTLE ONE (16:38)
[2017-03-07] MEDS ORDERED: DEXAMETHASONE SOD INJ 4 MG/ML VIAL ONE (16:41)
[2017-03-07] MEDS ORDERED: LIDOCAINE HCL 2% 2 ML VIAL (20MG/ML) ONE (16:41)
[2017-03-07] MEDS ORDERED: PROPOFOL IV EMULSION 10 MG/ML 20 ML VIAL IV ONE (16:41)
[2017-03-07] MEDS ORDERED: ONDANSETRON INJ 2 MG/ML 2 ML VIAL ONE (16:41)
[2017-03-07] MEDS ORDERED: PHEN95TA14 PO (16:44)
[2017-03-07] MEDS ORDERED: ULT50X PO (16:44)
--- NOTE | 2017-03-07 16:46 | Discharge Instructions ---
Discharge Instructions Date of Service Mar 07, 2017. Admission Reason for Admission: Stones And Ureteral Mass Discharge Discharge Diagnosis / Problem: right ureteral stone and left ureteral obstruction Discharge Goals Goal(s): Decrease discomfort, Improve function, Increase independence, Improve disease control, Prevent Disease Progression Activity Recommendations Activity Limitations: resume your previous activity Lifting Limitations: none Exercise/Sports Limitations: none May Resume Sexual Activity: when tolerated Shower/Bathe: no limitations Driving or Machine Use: resume 1 day after discharge . Instructions / Follow-Up Instructions / Follow-Up Please keep your previously scheduled follow up appointment. Current Hospital Diet Patient's current hospital diet: Discharge Diet Recommended Diet: Regular Diet Pending Studies Studies pending at discharge: no Medical Emergencies . Who to Call and When: Medical Emergencies: If at any time you feel your situation is an emergency, please call 911 immediately. . Non-Emergent Contact Non-Emergency issues call your: Urologist Call Non-Emergent contact if: you have a fever, temperature is above 101.5, your pain is not controlled, your pain is worsening . . "Provider Documentation" section prepared by Matthew Hamilton. . VTE Core Measure Inpt VTE Proph given/why not?: Treatment not indicated, Treatment not tolerated [place] Drug Monitoring Program Search Results: patient reviewed within database, no issues identified Drug Monitoring Findings: one rx recently - provided a refill for this and instructed him not to fill unless he has continued pain after exhausting the first rx
[2017-03-07] MEDS ORDERED: EpHEDrine SULFATE INJ 50 MG/ML AMP ONE (16:54)
[2017-03-07] MEDS ORDERED: SODIUM CHLORIDE 0.9% INJ 10 ML VIAL ONE (16:54)
[2017-03-07] MEDS ORDERED: PROMETHAZINE HCL INJ 6.25 MG in SODIUM CHLORIDE 0.9% 50ML 50 ML IV PRN (17:00)
[2017-03-07] MEDS ORDERED: EpHEDrine SULFATE INJ 50 MG/ML AMP IV PRN (17:00)
[2017-03-07] MEDS ORDERED: ATROPINE SULFATE 0.1 MG/ML 5ML SYR IV PRN (17:00)
[2017-03-07] MEDS ORDERED: FENTANYL CITRATE INJ 50 MCG/1 ML 2 ML VIAL IV PRN (17:00)
[2017-03-07] MEDS ORDERED: ONDANSETRON INJ 2 MG/ML 2 ML VIAL IV PRN (17:00)
[2017-03-07] MEDS ORDERED: PHENYLEPHRINE HCL INJ 10 MG/ML VIAL ONE (17:04)
[2017-03-07] MEDS ORDERED: SODIUM CHLORIDE 0.9% 1000ML 1,000 ML IV SCH (18:36)
[2017-03-07] MEDS ORDERED: OXYCODONE/ACETAMINOPHEN 5-325 TAB PO PRN ×2 (18:45)
[2017-03-07] MEDS ORDERED: ACETAMINOPHEN 325 MG TAB PO PRN (18:45)
--- NOTE | 2017-03-07 18:55 | [facility] Operative Report ---
Operative Report Operative Date Mar 07, 2017. 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 Escamilla Commis Chef Surgeon(s) NONE Estimated Blood Loss 5 ml Findings Distal right ureteral stone Left mid ureter (overlying the pelvic osseous structures) filling defect. Clot in the kidney. No definitive papillary tumors. 2-3cm narrow area of ureter with circumferential thickening and irritation. Specimens Permanent Specimen A. Right Ureteral Stone for Chemical Anaylsis B. Left Ureter Biopsy for pathology-4 cup biopsies and 1 brushing specimen in saline not formalin Drains [id number] stents (bilateral) Anesthesia Gen Complication(s) None Disposition Recovery Room / PACU (stable) Indications b/l hydro with renal dysfunction; concern for left ureteral malignancy Description of Procedure The patient was identified in the preoperative holding area, appropriate informed consent reviewed and completed, and the patient was transported to the operating suite. Upon arrival he received appropriate preoperative antibiotics in the form of ciprofloxacin. Adequate general anesthesia was achieved and he was placed in dorsal lithotomy position where he was sterilely prepped and draped in standard fashion. I began the case by passing a 22 Pakistani cystoscope with 30 lens. Inspection of the urethra revealed no evidence of stricture disease, he has a moderately enlarged prostate with predominantly lateral lobe hypertrophy and a slightly elevated bladder neck. Inspection of the bladder revealed healthy-appearing mucosa without evidence of papillary appearing bladder tumors or other concerning pathology. Ureteral orifices were in orthotopic position. I then turned my attention first to the right ureteral orifice. This was cannulated with a sensor wire and a 5 Pakistani open-ended catheter. Fluoroscopic evaluation as I passed this wire revealed a large opacity in the extreme distal ureter - consistent with preoperative imaging of the stone. After advancing the wire to the kidney, I exchanged the cystoscope for a semirigid ureteroscope and guided this carefully into the distal ureter alongside the wire. A large, black-appearing stone was seen obstructing the lumen of the ureter. Utilizing a 400 laser fiber, I fragmented the stone entirely and irrigated the majority of the pieces out of the ureter. Several remaining pieces proved more difficult to irrigate free, and I used a basket extractor to remove these final fragments. Stone fragments were then collected and passed off the table as a specimen labeled right nephrolithiasis for chemical analysis. I concluded my right-sided portion of the procedure by placing a 6 Pakistani by 26 cm double-J ureteral stent. I then turned my attention to the left ureteral orifice. Of note, on preoperative imaging it appears that he has long-standing left hydronephrosis with filling defects in the mid ureter and questionable filling defect within the lower pole of the kidney. He additionally has periureteral adenopathy concerning for metastatic disease. I first intubated the left UO utilizing a sensor wire and 5 Pakistani open-ended catheter. The wire advanced through the ureter without difficulty. I subsequently passed a semirigid ureteroscope into the distal ureter and inspected. The extreme distal ureter appeared very healthy. As I advanced this into the mid ureter, I encountered increased resistance. This resistance was felt to be anatomical secondary to the position of the ureter and not from the tumor itself. After advancing to the maximal extent possible, I opacified the remainder of the ureter by pushing contrast through the scope. Just above the scope, I visualized a 2-3 cm filling defect (essentially obliteration of the ureter on fluoroscopy) with a dilated proximal ureter above the filling defect. These images were saved and marked. I then passed a second wire through the scope and advanced it to the kidney. After withdrawing the semirigid scope, I passed a flexible scope and easily advanced this all the way to the kidney. A full renoscopy was carried out. There was a large clot in the lower pole of the kidney but no papillary tumors were visualized. Given the size of the clot and its mature appearance, I utilized a laser to break this into small parts. I then carefully performed an exit ureteroscopy. Upon reaching the area of the previously visualized filling defect, I noted a sudden narrowing of the ureter. No papillary tumors were visualized. Instead, there appeared to be circumferential thickening and narrowing of the ureter for a 2-3 cm length. There was some inflammation, but the appearance of the ureter was relatively uniform circumferentially. Utilizing fluoroscopic guidance, I marked the proximal and distal aspects of this narrowing. I then proceeded to pass a cold cup ureteroscopic biopsy forcep. Four specimens were taken from this area. I then passed a brush biopsy device and performed a brushing of this area. The specimens passed off the table as "left ureteral biopsies". I then concluded this case by placing a 6 Pakistani by 26 cm double-J ureteral stent. The bladder was emptied and the patient was extubated and taken to the PACU in stable condition. I attest to the content of the Intraoperative Record and any orders documented therein. Any exceptions are noted below.
--- NOTE | 2017-03-07 18:56 | Anesthesiology Progress Note ---
Anesthesia Post Op Note Date & Time Mar 07, 2017 at 18:56 Vital Signs Pain Intensity: 0 Vital Signs Past 12 Hours Date Time Temp Pulse Resp B/P (MAP) Pulse Ox O2 Delivery O2 Flow Rate FiO2 03/07/17 18:50 83 16 135/91 95 Room Air 03/07/17 18:40 88 16 124/91 97 Oxymask 3 03/07/17 18:30 36.4 81 16 139/98 96 Oxymask 5 03/07/17 12:14 36.4 99 18 146/98 (114) 96 Room Air Notes Mental Status: alert / awake / arousable, participated in evaluation Pt Amnestic to Procedure: Yes Nausea / Vomiting: adequately controlled Pain: adequately controlled Airway Patency, RR, SpO2: stable & adequate BP & HR: stable & adequate Hydration State: stable & adequate Anesthetic Complications: no major complications apparent
[2017-03-07 19:05] VITALS: BP 132/88; PULSE 86; TEMP 37; O2SAT 94
--- NOTE | 2017-03-07 19:09 | DIAGNOSTIC IMAGING REPORT ---
RETROGRADE INCLUDES KUB CLINICAL HISTORY: lithotripsy, retrograde COMPARISON STUDY: CT of the abdomen and pelvis and KUB March 03, 2017. Fluoroscopy time: 33.8 seconds. FINDINGS: 5 fluoroscopic images were obtained. Initial image demonstrates cannulation of the right ureter with placement of a double-J right ureteral stent. Subsequent images demonstrate cannulation of the left ureter with placement of a double-J left ureteral stent. Note is made of severe focal narrowing of the mid left ureter which corresponds to the finding on CT of March 03, 2017. IMPRESSION: 1. Fluoroscopic images demonstrating placement of bilateral ureteral stents. 2. Severe focal narrowing of the mid left ureter which corresponds to the ureteral abnormality on prior CT of March 03, 2017. This is suspicious for malignancy. Electronically signed by: Kranthi Vasquez M.D. 03/07/2017 7:07 PM Dictated Date/Time: 03/07/2017 7:00 PM
[2017-03-07 19:30] VITALS: BP 145/93; PULSE 84; TEMP 36.8; O2SAT 93
[2017-04-07] MEDS ORDERED: AMLO5TAB3 PO (16:22)
[2017-04-28] MEDS ORDERED: VNTHFA/IN INH (10:53)
[2017-05-23] MEDS ORDERED: LISI-726 PEG (10:38)
[2017-06-01] MEDS ORDERED: LPR25 PO (14:36)
[2017-06-01] MEDS ORDERED: OXYC-57 PO (14:36)
[2017-06-01] MEDS ORDERED: vancomycin IV (14:36)
[2017-08-08] MEDS ORDERED: ONDA-170 PO (13:29)
[2017-08-08] MEDS ORDERED: PROC10TA PO (13:30)
[2017-08-08] MEDS ORDERED: DIPH1TAB87 PO (13:30)
[2017-09-12] MEDS ORDERED: CIPR-255 PO (11:36)
== END 2017-03-07 19:40 | disposition home or self-care (01) ==
LOC: C.ACU 11:42
PROVIDERS: ATTEND Urology
DX: N13.2 Hydronephrosis with renal and ureteral calculous obstruction (principal); N28.89 Other specified disorders of kidney and ureter; I12.9 Hypertensive chronic kidney disease with stage 1 through stage 4 chronic kidney disease, or unspecified chronic kidney disease; N18.9 Chronic kidney disease, unspecified; J45.909 Unspecified asthma, uncomplicated; Z96.653 Presence of artificial knee joint, bilateral

== ENCOUNTER → 2017-03-14 | Outpatient (CLI) | payer BC ==
[~2017-03-14] MED LIST changes: +ACET-1256 PO; +ALLO300T2 PO; +ASPI81TA28 PO; +CIPR-255 PO; -CIPROFLOXACIN / D5W 400 MG IV SCH; -CIPROFLOXACIN 200MG / D5W IV SCH; +CLOB-85 TOP; +DIPH1TAB87 PO; +LISI-726 PEG; +LPR25 PO; -NITR1CAP33 PO; +OMEG10007 PO; +ONDA-170 PO; +OXYC-57 PO; +PHEN95TA14 PO; +PROC10TA PO; +TRAM-10 PO; +VNTHFA/IN INH; +vancomycin IV
--- NOTE | 2017-03-14 13:31 | DIAGNOSTIC IMAGING REPORT ---
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 Nonobstructive bowel pattern. Stents appear to be aligned appropriately. Multiple pelvic vascular calcifications. A limited visibility of the renal shadows due to overlying bowel content although normally no major calcifications are identified. IMPRESSION: Interval placement of bilateral ureteral stents. No evidence for major nephrocalcinosis within limitations of overlying bowel content. The above report was generated using voice recognition software. It may contain grammatical, syntax or spelling errors. Electronically signed by: Wilbur Means M.D. 03/14/2017 1:29 PM Dictated Date/Time: 03/14/2017 1:15 PM
== END | disposition home or self-care (01) ==
LOC: C.RAD 12:31
PROVIDERS: ATTEND Urology
DX: N20.0 Calculus of kidney (principal); N28.9 Disorder of kidney and ureter, unspecified

== ENCOUNTER → 2017-04-03 | Outpatient (CLI) | payer BC ==
[~2017-04-03] MED LIST changes: -ACET-1256 PO; -ALLO300T2 PO; +AMLO-110 PO; -AMLO5TAB3 PO; -CIPR-255 PO; -DIPH1TAB87 PO; -LISI-726 PEG; -LPR25 PO; -ONDA-170 PO; -OXYC-57 PO; -PROC10TA PO; -TRAM-10 PO; -VNTHFA/IN INH; -vancomycin IV
[2017-04-03 13:33] LABS: BLOOD UREA NITROGEN 16 mg/dl (7-18); CALCIUM 9.5 mg/dl (8.5-10.1); CARBON DIOXIDE 29 mmol/L (21-32); CREATININE 0.98 mg/dl (0.60-1.40); GLUCOSE 88 mg/dl (70-99); POTASSIUM 3.8 mmol/L (3.5-5.1); SODIUM 138 mmol/L (136-145)
== END | disposition home or self-care (01) ==
LOC: C.LAB 10:35
PROVIDERS: ATTEND Urology
DX: R59.1 Generalized enlarged lymph nodes (principal)

== ENCOUNTER 2017-04-07 15:22 | Emergency (ER) | payer BC ==
[~2017-04-07] VITALS: Ht 190.5 cm; Wt 115.2 kg
[~2017-04-07 15:22] MED LIST changes: -ACET-1256 PO; -AMLO-110 PO; -CIPR-255 PO; -LISI-725 PO; -OXYC-57 PO; -TRAM-10 PO
[2017-04-07 15:29] VITALS: Ht 190.5 cm; Wt 115.2 kg
[2017-04-07] MEDS ORDERED: SODIUM CHLORIDE 0.9% 500ML 500 ML IV STA (15:50)
--- NOTE | 2017-04-07 15:55 | EMERGENCY ROOM VISIT NOTE ---
History First contact with patient: 15:34 Chief Complaint: FLANK PAIN Stated Complaint: SEVER BACK SIDE KIDNEY PAIN (LEFT) History of Present Illness The patient is a 66 year old male who presents to the Emergency Room with complaints of left flank pain that started last night. The patient has a history of ureteral stents. His left ureteral stent was placed 1 month ago. Patient also notes that he had a lymph node biopsy done last week at [place]. Postoperatively, he has done well from these procedures. The pain started becoming severe last night. It is sharp, stabbing and radiating from his left flank into his left groin. No nausea or vomiting. Denies any fever or chills. No dysuria or hematuria. Review of Systems 10 system review performed and negative unless noted in HPI or below Past Medical/Surgical History Medical Problems: (1) JESSICA (acute kidney injury) (2) Asthma (3) Bronchitis (4) Carpal tunnel syndrome (5) HTN (hypertension) (6) Ureteral mass Surgical Problems: (1) History of bilateral knee replacement Family History FH: cancer Hypertension Social History Smoking Status: Never Smoker Alcohol Use: none Drug Use: none Marital Status: Housing Status: lives with significant other Occupation Status: retired Current/Historical Medications Scheduled Acetaminophen (Tylenol), 500 MG PO UD Amlodipine (Norvasc), 5 MG PO HS Ciprofloxacin Hcl (Cipro), 500 MG PO BID Fish Oil ([place]-3), 1 CAP PO DAILY Lisinopril (Zestril), 20 MG PO QAM Montelukast Sodium (Singulair), 10 MG PO DAILY Simvastatin (Zocor), 40 MG PO HS Scheduled PRN Cetirizine (Zyrtec), 10 MG PO DAILY PRN for ALLERGIES Clobetasol Propionate Emulsion (Clobetasol Propionate), TOP BID PRN for rash Doxepin (Sinequan), 10 MG PO TID PRN for BREAKOUT Oxycodone/Acetaminophen 5MG/325MG (Percocet 5MG/325MG), 1 TAB PO Q4H PRN for Pain Tramadol (Ultram), 50 MG PO Q4H PRN for Pain Physical Exam Vital Signs Date Time Temp Pulse Resp B/P (MAP) Pulse Ox O2 Delivery O2 Flow Rate FiO2 04/07/17 21:00 101 18 130/86 93 Room Air 04/07/17 20:32 37.6 104 16 140/92 95 04/07/17 18:57 92 18 143/99 96 Room Air 04/07/17 17:44 90 18 133/95 97 Room Air 04/07/17 15:29 36.8 115 20 128/87 96 Room Air Physical Exam VITALS: Vitals are noted on the nurse's note and reviewed by myself. Vital signs stable. GENERAL: 66-year-old male, in no acute distress, nondiaphoretic, well-developed well-nourished. SKIN: The skin was without rashes, erythema, edema, or bruising. \ HEAD: Normocephalic atraumatic. MOUTH: Mucous membranes moist. NECK: Supple without nuchal rigidity. No lymphadenopathy. Cervical spine is nontender. No JVD. HEART: Regular rate and rhythm without murmurs gallops or rubs. LUNGS: Clear to auscultation bilaterally without wheezes, rales or rhonchi. No accessory muscle use. ABDOMEN: Positive bowel sounds x 4.Soft, nontender, without organomegaly. No guarding or rebound tenderness. No significant CVA tenderness noted bilaterally. MUSCULOSKELETAL: No muscle atrophy, erythema, or edema noted.Strength 5/5 throughout. NEURO: Patient was alert and oriented to person place and time. Normal sensation to touch. No focal neurological deficits. Medical Decision & Procedures ER Provider Diagnostic Interpretation: CT abdomen and pelvis Patient Name: BALDEV SON Unit Number: [id number] Dictated: 04/07/171441 Transcribed: 04/07/171441 EV Printed Date/Time: [~ rep prt dt]/[~ rep prt tm] [~ rep ct labl] - [~ rep ct ivnm] [facility] [place] [address] Dictated: 04/07/171441 Transcribed: 04/07/171441 EV Printed Date/Time: [~ rep prt dt]/[~ rep prt tm] [~ rep ct labl] - [~ rep ct ivnm] IMPRESSION: 1. A left ureteral stent has been placed. There is no hydronephrosis. 2. The distal right ureteral calculus seen on 03/03/2017 is no longer identified. 3. A mass lesion is again suggested involving the distal left ureter, suspicious for transitional cell carcinoma. 4. There is bilateral perinephric stranding, similar to previous. Fluid is again seen around the left kidney, the left ureter, and in the paracolic gutters. This has modestly increased from 03/03/2017. This may be related to forniceal rupture. Correlate clinically and with urinalysis for evidence of superimposed infection. 5. Bulky retroperitoneal and iliac chain lymphadenopathy is similar to previous. Differential considerations remain metastatic disease versus lymphoma. 6. Mild to moderate sigmoid diverticulosis without CT evidence of acute diverticulitis. 7. Additional findings as above. Electronically signed by: Lemuel Canada M.D. 04/07/2017 2:53 PM Dictated Date/Time: 04/07/2017 2:42 PM The status of this report is Signed. Draft = Not yet reviewed or approved by Radiologist. Signed = Reviewed and approved by Radiologist. <AttendingPhy>Solitario Escamilla M.D.</AttendingPhy> <FamilyPhy>Joel Gaona D.O.</FamilyPhy> <PrimaryPhy>Joel GaonaDBunny</PrimaryPhy> < UnitNumber>[id number]</UnitNumber> <VisitNumber>[id number]</VisitNumber> < PatientName>BALDEV SON</PatientName> <DateOfBirth>1950</DateOfBirth> < Location>[facility]</Location> <ServiceDate>04/07/17</ServiceDate> <MNE>ESINDI</MNE> <OrderingPhy>Solitario Escamilla M.D.</OrderingPhy> <OrderingPhyMNE>f rep ord dr flores</OrderingPhyMNE> <DictatingPhyMNE>f rep dict dr flores</DictatingPhyMNE > <CCListMNE>f rep ct waie</CCListMNE> <AdmittingPhyMNE>f pt admit dr flores</ AdmittingPhyMNE> <AttendingPhyMNE>f pt attend dr flores</AttendingPhyMNE> <ConsultingPhyMNE>f pt consult dr flores</ConsultingPhyMNE> <FamilyPhyMNE>f pt fam dr mne</FamilyPhyMNE> <OtherPhyMNE>f pt other mne</OtherPhyMNE> < PrimaryPhyMNE>f pt prim care dr carrenoe</PrimaryPhyMNE> <ReferringPhyMNE>f pt referring dr flores</ReferringPhyMNE> Laboratory Results 04/07/17 16:25 Red Blood Count 4.92, Mean Corpuscular Volume 90.7, Mean Corpuscular Hemoglobin 31.1, Mean Corpuscular Hemoglobin Concent 34.3, Mean Platelet Volume 9.9, Neutrophils (%) (Auto) 78.6, Lymphocytes (%) (Auto) 10.1, Monocytes (%) (Auto) 9.3, Eosinophils (%) (Auto) 1.5, Basophils (%) (Auto) 0.2, Neutrophils # (Auto) 7.25, Lymphocytes # (Auto) 0.93, Monocytes # (Auto) 0.86, Eosinophils # (Auto) 0.14, Basophils # (Auto) 0.02 04/07/17 16:25 Test 04/07/17 16:25 04/07/17 16:30 04/07/17 16:35 White Blood Count 9.23 K/uL (4.8-10.8) Red Blood Count 4.92 M/uL (4.7-6.1) Hemoglobin 15.3 g/dL (14.0-18.0) Hematocrit 44.6 % (42-52) Mean Corpuscular Volume 90.7 fL (80-100) Mean Corpuscular Hemoglobin 31.1 pg (25-34) Mean Corpuscular Hemoglobin Concent 34.3 g/dl (32-36) Platelet Count 182 K/uL (130-400) Mean Platelet Volume 9.9 fL (7.4-10.4) Neutrophils (%) (Auto) 78.6 % Lymphocytes (%) (Auto) 10.1 % Monocytes (%) (Auto) 9.3 % Eosinophils (%) (Auto) 1.5 % Basophils (%) (Auto) 0.2 % Neutrophils # (Auto) 7.25 K/uL (1.4-6.5) Lymphocytes # (Auto) 0.93 K/uL (1.2-3.4) Monocytes # (Auto) 0.86 K/uL (0.11-0.59) Eosinophils # (Auto) 0.14 K/uL (0-0.5) Basophils # (Auto) 0.02 K/uL (0-0.2) RDW Standard Deviation 43.4 fL (36.4-46.3) RDW Coefficient of Variation 13.1 % (11.5-14.5) Immature Granulocyte % (Auto) 0.3 % Immature Granulocyte # (Auto) 0.03 K/uL (0.00-0.02) Anion Gap 6.0 mmol/L (3-11) Est Creatinine Clear Calc Drug Dose 91.7 ml/min Estimated GFR () 82.8 Estimated GFR (Non- 71.5 BUN/Creatinine Ratio 13.2 (10-20) Calcium Level 9.2 mg/dl (8.5-10.1) Total Bilirubin 1.0 mg/dl (0.2-1) Aspartate Amino Transf (AST/SGOT) 35 U/L (15-37) Alanine Aminotransferase (ALT/SGPT) 25 U/L (12-78) Alkaline Phosphatase 92 U/L (45-117) Total Protein 7.8 gm/dl (6.4-8.2) Albumin 3.9 gm/dl (3.4-5.0) Globulin 3.9 gm/dl (2.5-4.0) Albumin/Globulin Ratio 1.0 (0.9-2) Lactic Acid Level 1.6 mmol/L (0.4-2.0) Urine Color YELLOW Urine Appearance CLEAR (CLEAR) Urine pH 6.0 (4.5-7.5) Urine Specific [place] 1.017 (1.000-1.030) Urine Protein 1+ (NEG) Urine Glucose (UA) NEG (NEG) Urine Ketones TRACE (NEG) Urine Occult Blood 2+ (NEG) Urine Nitrite NEG (NEG) Urine Bilirubin NEG (NEG) Urine Urobilinogen NEG (NEG) Urine Leukocyte Esterase MODERATE (NEG) Urine WBC (Auto) 10-30 /hpf (0-5) Urine RBC (Auto) 10-30 /hpf (0-4) Urine Hyaline Casts (Auto) 1-5 /lpf (0-5) Urine Epithelial Cells (Auto) 20-30 /lpf (0-5) Urine Bacteria (Auto) NEG (NEG) Medications Administered Medications (Trade) Dose Ordered Sig/Khari Route Start Time Stop Time Status Last Admin Dose Admin Morphine Sulfate (MoRPHine SULFATE INJ) 4 mg Q1H PRN IV 04/07/17 16:00 04/07/17 21:48 DC 04/07/17 16:40 4 MG Sodium Chloride 500 ml @ 999 mls/hr Q31M STAT IV 04/07/17 15:50 04/07/17 16:20 DC 04/07/17 16:33 999 MLS/HR Ciprofloxacin/ Dextrose (Cipro / D5W) 400 mg NOW STAT IV 04/07/17 18:27 04/07/17 18:28 DC 04/07/17 18:56 400 MG Oxycodone/ Acetaminophen (Percocet 5/ 325MG Home Pack) 1 homepack UD ONCE PO 04/07/17 20:00 04/07/17 20:01 DC 04/07/17 20:24 1 HOMEPACK ED Course Patient was seen and examined Vital signs including blood pressure were reviewed medications list was verified with patient Labs were obtained, and a saline lock was established The patient was medicated with morphine for pain. He was hydrated with normal saline. His imaging and labs were reviewed. The case was discussed with Dr. Dominguez from urology. It was also discussed with supervising physician. Upon reevaluation, the patient was feeling better. We discussed the results of his workup. He voiced understanding. The patient was given 1 dose of Cipro 400 mg IV. He was also given a whole pack of Percocet. He was comfortable being discharged home. I reviewed discharge instructions the patient. They voiced understanding and had no further questions. Medical Decision Differential diagnosis: Ureteral stone, pyelonephritis, renal mass, postoperative bleeding, This patient is a 66-year-old male presents to the emergency department with left flank pain. On exam, he was nontoxic in appearance. He was afebrile. His workup reveals no leukocytosis. His H&H is stable. I reviewed the CT. This was also reviewed by urology. There is some fluid around the left kidney. It is unclear if this is infectious versus possibly a small amount of postoperative bleeding. The patient will be covered with antibiotics as he has 10-30 WBCs in his urine. The case was discussed with urology. He is in agreement that this can probably be treated as an outpatient. The patient will have close follow-up. He was sent home with 2 weeks of antibiotics. He agrees to return immediately to the emergency department with any new, worsening or concerning symptoms. This chart was completed in part utilizing [employer] Speech Voice Recognition software. Attempts were made to minimize the grammatical errors, random word insertions, pronoun errors and incomplete sentences. Any formal questions or concerns about the content, text or information contained within the body of this dictation should be directly addressed to the provider for clarification. Medication Reconcilliation Current Medication List: was personally reviewed by me Blood Pressure Screening Patient's blood pressure: Normal blood pressure Consults Consulting Physician: Dr. Dominguez-urolgoy Impression Primary Impression: Left flank pain Departure Information Dispostion Home / Self-Care Condition GOOD Prescriptions Oxycodone/Acetaminophen 5MG/325MG (PERCOCET 5MG/325MG) Tab 1 TAB PO Q4H Y for Pain, #20 TAB For Initial Treatment Prov: Kalina Luu PA-C 04/07/17 Ciprofloxacin Hcl (CIPRO) 500 Mg Tab 500 MG PO BID for 14 Days, #28 TAB Prov: Kalina Luu PA-C 04/07/17 Referrals Joel Gaona D.O. (PCP) Jay Dominguez M.D. Patient Instructions My [facility] Additional Instructions You have been evaluated in the emergency department for left flank pain. This could be due to a urinary tract infection. Please take the entire course of antibiotics. Please continue Toradol as prescribed. Percocet Take 1-2 pills every four hours for pain. Avoid alcohol, operating machinery or dangerous equipment, working on ladders or roofs, DRIVING, or situations where being under the influence may be dangerous. It is recommended to use an [id number] stool softener such as Colace, 100mg twice daily while taking this medication to avoid constipation. Please do not hesitate to return to the emergency department with any new, worsening or concerning symptoms; especially, worsening pain, fever, nausea or vomiting
[2017-04-07] MEDS ORDERED: MoRPHine SULFATE 4 MG/ML 1 ML CARP\\VIAL IV PRN (16:00)
[2017-04-07] MEDS ORDERED: LISI-725 PO (16:14)
[2017-04-07] MEDS ORDERED: ACET-1256 PO (16:16)
[2017-04-07] MEDS ORDERED: TRAM-10 PO (16:17)
[2017-04-07] MEDS ORDERED: AMLO-110 PO (16:22)
[2017-04-07 17:07] LABS: BASO % 0.2 %; BASO ABS # 0.02 K/uL (0-0.2); EOS % 1.5 %; EOS ABS # 0.14 K/uL (0-0.5); HEMATOCRIT 44.6 % (42-52); HEMOGLOBIN 15.3 g/dL (14.0-18.0); IG# 0.03 K/uL (0.00-0.02); LYMPH % 10.1 %; LYMPH ABS # 0.93 K/uL (1.2-3.4); MEAN CELL VOLUME 90.7 fL (80-100); MEAN CORPUSCULAR HEMOGLOBIN 31.1 pg (25-34); MEAN CORPUSCULAR HGB CONC 34.3 g/dl (32-36); MEAN PLATELET VOLUME 9.9 fL (7.4-10.4); MONO % 9.3 %; MONO ABS # 0.86 K/uL (0.11-0.59); NEUT % 78.6 %; NEUT ABS # 7.25 K/uL (1.4-6.5); PLATELET COUNT 182 K/uL (130-400); RED CELL DISTRIBUTION WIDTH CV 13.1 % (11.5-14.5); RED CELL DISTRIBUTION WIDTH SD 43.4 fL (36.4-46.3); WHITE BLOOD COUNT 9.23 K/uL (4.8-10.8)
[2017-04-07 17:30] LABS: ALBUMIN 3.9 gm/dl (3.4-5.0); CALCIUM 9.2 mg/dl (8.5-10.1); CREATININE 1.07 mg/dl (0.60-1.40); POTASSIUM 3.4 mmol/L (3.5-5.1)
[2017-04-07 17:32] LABS: TOTAL PROTEIN 7.8 gm/dl (6.4-8.2)
[2017-04-07] MEDS ORDERED: CEFTRIAXONE SOD INJ 1 GM in DEXTROSE 5% ADD-VANTAGE 50ML 50 ML IV STA (18:09)
[2017-04-07] MEDS ORDERED: CIPROFLOXACIN 400MG / 200ML D5W IV STA (18:27)
[2017-04-07] MEDS ORDERED: CIPR-255 PO (19:23)
[2017-04-07] MEDS ORDERED: OXYC-57 PO (19:23)
[2017-04-07] MEDS ORDERED: PERCOCET HOME PACK PO ONE (20:00)
[2017-04-07 20:32] VITALS: TEMP 37.6
[2017-04-07 21:00] VITALS: BP 130/86; PULSE 101; O2SAT 93
== END 2017-04-07 21:22 | disposition home or self-care (01) ==
LOC: C.EDB 15:23 → C.EDA 21:22
DX: R10.32 Left lower quadrant pain (principal); J45.909 Unspecified asthma, uncomplicated; I10 Essential (primary) hypertension; Z96.659 Presence of unspecified artificial knee joint; Z80.9 Family history of malignant neoplasm, unspecified; Z82.49 Family history of ischemic heart disease and other diseases of the circulatory system; Z79.899 Other long term (current) drug therapy

== ENCOUNTER → 2017-04-07 | Outpatient (CLI) | payer BC ==
[~2017-04-07] MED LIST changes: +ACET-1256 PO; +CIPR-255 PO; +OXYC-57 PO; +TRAM-10 PO
--- NOTE | 2017-04-07 14:54 | DIAGNOSTIC IMAGING REPORT ---
CT SCAN OF THE ABDOMEN AND PELVIS WITHOUT IV CONTRAST CLINICAL HISTORY: Left flank pain. COMPARISON STUDY: Abdominal CT dated 03/03/2017. TECHNIQUE: CT scan of the abdomen and pelvis is performed from the lung bases to the proximal femora. Images are reviewed in the axial, sagittal, and coronal planes. IV contrast was not administered for this examination. A dose lowering technique was utilized adhering to the principles of ALARA. The examination is compromised by motion artifact. CT DOSE: 1215.52 mGy.cm FINDINGS: Lung bases: The heart is normal in size and without pericardial effusion. The lung bases are clear noting dependent atelectasis. Liver: The unenhanced liver is normal in size, contour, and attenuation. There is no intrahepatic biliary ductal dilatation. A calcified granuloma is noted in the posterior right lobe. Gallbladder: Unremarkable. Spleen: Normal in size and attenuation, measuring 11.4 cm in length. Pancreas: The unenhanced pancreas is moderately atrophic and grossly unremarkable. Adrenal glands: Unremarkable. Kidneys: The unenhanced kidneys are normal in size. A left ureteral stent is in place. There is no hydronephrosis. There are no renal calculi identified. No calcification is seen along the course of the ureteral stent. A 3.3 cm cyst is noted in the interpolar left kidney. Nonspecific bilateral perinephric stranding is similar to previous. There is fluid identified around the left kidney and ureter, as well as in the left paracolic gutter. This has slightly increased from 03/03/2017. A left ureteral mass is again suggested on image #356. The distal right ureteral stone seen on 03/03/2017 is no longer identified. Abdominal vasculature: There is moderate atherosclerotic calcification as well as mild ectasia of the abdominal aorta. Bowel: There is mild to moderate sigmoid diverticulosis without CT evidence of acute diverticulitis. No bowel obstruction is identified. The appendix is well-visualized and normal. Peritoneum: There is no intraperitoneal free air. There is a small fat-containing umbilical hernia. Lymphadenopathy: There is bulky retroperitoneal and iliac chain lymphadenopathy. This is similar to 03/03/2017 examination. A left periaortic node on image #210 measures 6.2 x 4.5 cm. A left iliac chain node on image #340 measures 5.1 x 3.1 cm. A prominent left inguinal node on image #484 measures 1.5 cm. Pelvic viscera: The prostate gland is mildly enlarged and heterogeneous, measuring 5.6 cm in transverse diameter. The bladder wall is mildly thickened and trabeculated suggesting chronic outlet obstruction. The bladder contains and a left ureteral stent. Skeletal structures: The skeletal structures are osteopenic. Mild lumbosacral spondylosis is observed. No lytic or blastic lesions are seen. There are healed right pubic ring fractures. IMPRESSION: 1. A left ureteral stent has been placed. There is no hydronephrosis. 2. The distal right ureteral calculus seen on 03/03/2017 is no longer identified. 3. A mass lesion is again suggested involving the distal left ureter, suspicious for transitional cell carcinoma. 4. There is bilateral perinephric stranding, similar to previous. Fluid is again seen around the left kidney, the left ureter, and in the paracolic gutters. This has modestly increased from 03/03/2017. This may be related to forniceal rupture. Correlate clinically and with urinalysis for evidence of superimposed infection. 5. Bulky retroperitoneal and iliac chain lymphadenopathy is similar to previous. Differential considerations remain metastatic disease versus lymphoma. 6. Mild to moderate sigmoid diverticulosis without CT evidence of acute diverticulitis. 7. Additional findings as above. Electronically signed by: Lemuel Canada M.D. 04/07/2017 2:53 PM Dictated Date/Time: 04/07/2017 2:42 PM
== END | disposition home or self-care (01) ==
LOC: C.CTS 14:29
PROVIDERS: ATTEND Urology
DX: N28.9 Disorder of kidney and ureter, unspecified (principal); R59.0 Localized enlarged lymph nodes; K57.30 Diverticulosis of large intestine without perforation or abscess without bleeding; Z96.0 Presence of urogenital implants

== ENCOUNTER 2017-05-08 10:36 | Day surgery (SDC) | payer BC ==
[2017-05-01 16:04] VITALS: BMI 31.0
[~2017-05-08] VITALS: Ht 190.5 cm; Wt 113.6 kg
[~2017-05-08 10:36] MED LIST changes: -ACET-1047 PO; +AMLO-110 PO; -ASPI81TA28 PO; +CEFTRIAXONE SOD INJ 1000 MG in DEXTROSE 5% 50ML IV SCH; -CETI10TA84 PO; -DOXE10CA PO; +LISI-725 PO; -MONT1TAB3 PO; -OMEG10007 PO; -PHEN95TA14 PO; +SODIUM CHLORIDE 0.9% 1000ML 1,000 ML IV SCH; -ULT50X PO; +VNTHFA/IN INH
[2017-05-08] MEDS ORDERED: OXYC-57 PO (11:09)
[2017-05-08] MEDS ORDERED: ALLO300T2 PO (11:09)
[2017-05-08] MEDS ORDERED: DOXE10CA PO (11:10)
[2017-05-08] MEDS ORDERED: TRAM-10 PO (11:11)
[2017-05-08 11:17] VITALS: BP 142/86; PULSE 91; TEMP 36.7; O2SAT 96; Ht 190.5 cm; Wt 113.6 kg
[2017-05-08] MEDS ORDERED: ATROPINE SULFATE 0.1 MG/ML 5ML SYR IV PRN (11:45)
[2017-05-08] MEDS ORDERED: FENTANYL CITRATE INJ 50 MCG/1 ML 2 ML VIAL IV PRN (11:45)
[2017-05-08] MEDS ORDERED: PROMETHAZINE HCL INJ 6.25 MG in SODIUM CHLORIDE 0.9% 50ML 50 ML IV PRN (11:45)
[2017-05-08] MEDS ORDERED: ONDANSETRON INJ 2 MG/ML 2 ML VIAL IV PRN (11:45)
[2017-05-08] MEDS ORDERED: EpHEDrine SULFATE INJ 50 MG/ML AMP IV PRN (11:45)
--- NOTE | 2017-05-08 12:27 | History & Physical Bridge Note ---
H&P Re-Evaluation Bridge Note: I have examined the patient, reviewed the History & Physical and in the interval since the performance of the History & Physical I have noted the following changes of clinical significance: No changes noted
[2017-05-08] MEDS ORDERED: PROPOFOL IV EMULSION 10 MG/ML 20 ML VIAL IV ONE (12:35)
[2017-05-08] MEDS ORDERED: MIDAZOLAM HCL 1 MG/ML 2ML VIAL ONE (12:35)
[2017-05-08] MEDS ORDERED: LIDOCAINE HCL 2% 2 ML VIAL (20MG/ML) ONE (12:35)
[2017-05-08] MEDS ORDERED: ONDANSETRON INJ 2 MG/ML 2 ML VIAL ONE (12:35)
[2017-05-08] MEDS ORDERED: DEXAMETHASONE SOD INJ 4 MG/ML VIAL ONE (12:35)
[2017-05-08] MEDS ORDERED: FENTANYL CITRATE INJ 50 MCG/1 ML 2 ML VIAL ONE (12:35)
[2017-05-08] MEDS ORDERED: Cysto-Conray II 17.2% 250ML BOTTLE ONE (12:38)
[2017-05-08] MEDS ORDERED: CIPROFLOXACIN 400MG / 200ML D5W ONE (12:41)
[2017-05-08] MEDS ORDERED: CIPR-255 PO (12:45)
[2017-05-08] MEDS ORDERED: NURSING VERBAL MED ORDER ONE (12:45)
[2017-05-08] MEDS ORDERED: SODIUM CHLORIDE 0.9% 1000ML 1,000 ML IV SCH (12:47)
--- NOTE | 2017-05-08 12:47 | Discharge Instructions ---
Discharge Instructions Date of Service May 08, 2017. Admission Reason for Admission: Lymphoma; hydronephrosis Discharge Discharge Diagnosis / Problem: hydronephrosis Discharge Goals Goal(s): Decrease discomfort, Improve function, Increase independence, Improve disease control Activity Recommendations Activity Limitations: resume your previous activity Lifting Limitations: none Exercise/Sports Limitations: none May Resume Sexual Activity: when tolerated Shower/Bathe: no limitations Driving or Machine Use: resume 1 day after discharge . Instructions / Follow-Up Instructions / Follow-Up Please keep your previously scheduled follow up appointment. Current Hospital Diet Patient's current hospital diet: Discharge Diet Recommended Diet: Regular Diet Pending Studies Studies pending at discharge: no Medical Emergencies . Who to Call and When: Medical Emergencies: If at any time you feel your situation is an emergency, please call 911 immediately. . Non-Emergent Contact Non-Emergency issues call your: Urologist Call Non-Emergent contact if: you have a fever, temperature is above 101.5, your pain is not controlled, your pain is worsening . . "Provider Documentation" section prepared by Matthew Hamilton. . VTE Core Measure Inpt VTE Proph given/why not?: Treatment not indicated
[2017-05-08] MEDS ORDERED: SODIUM CHLORIDE 0.9% INJ 10 ML VIAL ONE (12:57)
[2017-05-08] MEDS ORDERED: KETAMINE HCL INJ 50 MG/ML 10 ML VIAL ONE (12:57)
[2017-05-08] MEDS ORDERED: ACETAMINOPHEN 325 MG TAB PO PRN (13:00)
[2017-05-08] MEDS ORDERED: OXYCODONE/ACETAMINOPHEN 5-325 TAB PO PRN ×2 (13:00)
--- NOTE | 2017-05-08 13:12 | [facility] Operative Report ---
Operative Report Operative Date May 08, 2017. Pre-Operative Diagnosis hydronephrosis Post-Operative Diagnosis hydronephrosis Procedure(s) Performed Cystoscopy, Left Ureteral stent exchange ([id number]) Surgeon Dr. Escamilla Brim Stretching Machine Operator Surgeon(s) none Estimated Blood Loss 0 ml Findings as per dictation Specimens none per surgeon Drains None Anesthesia Type MAC Complication(s) none Disposition no Indications lymphoma/hydronephrosis Description of Procedure Patient was identified in the preoperative holding area, appropriate informed consents reviewed and completed and he was transported to the operating suite. Upon arrival he received appropriate preoperative antibiotics in the form of ciprofloxacin. Adequate sedation was achieved, and he was placed in dorsal lithotomy position where he was sterilely prepped and draped in standard fashion. I began the case by passing a 22 [place] cystoscope with 30 lens. Inspection of the urethra revealed a healthy appearing urethra without stricture. The prostate was moderately enlarged with a relatively high bladder neck. Inspection of the bladder revealed a ureteral stent protruding from the left ureteral orifice. There is no evidence of mucosal disease of the bladder. The distal aspect of the stent was grasped with a flexible grasper and withdrawn to the meatus with simultaneous fluoroscopic evaluation of the upper aspect of the stent. A sensor wire was passed through the lumen of the stent and advanced to the kidney. A new stent was then inserted over the existing wire. An excellent curl was seen in the bladder as well as the kidney. The case was subsequently concluded after emptying the bladder. The patient was reversed from anesthesia and taken to the PACU in stable condition. I attest to the content of the Intraoperative Record and any orders documented therein. Any exceptions are noted below.
[2017-05-08 13:16] VITALS: BP 116/83; PULSE 75; TEMP 36.7; O2SAT 97
[2017-05-08 13:46] VITALS: BP 112/80; PULSE 79; TEMP 36.7; O2SAT 96
--- NOTE | 2017-05-08 13:50 | DIAGNOSTIC IMAGING REPORT ---
FLUOROSCOPIC IMAGES FROM LEFT RETROGRADE EXAM CLINICAL HISTORY: LEFT SIDE STENT PLACEMENT COMPARISON STUDY: CT of the abdomen and pelvis April 07, 2017. Fluoroscopy time: 4.7 seconds. FINDINGS: Single fluoroscopic image from a left retrograde exam demonstrates a left ureteral stent. Proximal aspect of stent projects over the left renal pelvis. IMPRESSION: Fluoroscopic image demonstrating a left ureteral stent. Electronically signed by: Kranthi Vasquez M.D. 05/08/2017 1:48 PM Dictated Date/Time: 05/08/2017 1:47 PM
[2017-05-08] MEDS ORDERED: EpHEDrine SULFATE 50MG/5ML SYR ONE (14:06)
[2017-05-08] MEDS ORDERED: PHENYLEPHRINE HCL INJ 10 MG/ML VIAL ONE (14:06)
[2017-05-08] MEDS ORDERED: GLYCOPYRROLATE INJ 0.2 MG/ML VIAL ONE (14:06)
--- NOTE | 2017-05-08 15:08 | Anesthesiology Progress Note ---
Anesthesia Post Op Note Date & Time May 08, 2017 at 15:08 Vital Signs Pain Intensity: 0 Vital Signs Past 12 Hours Date Time Temp Pulse Resp B/P (MAP) Pulse Ox O2 Delivery O2 Flow Rate FiO2 05/08/17 13:46 36.7 79 18 112/80 96 Room Air 05/08/17 13:16 36.7 75 18 116/83 97 Room Air 05/08/17 11:17 36.7 91 20 142/86 (104) 96 Room Air Notes Mental Status: alert / awake / arousable, participated in evaluation Pt Amnestic to Procedure: Yes Nausea / Vomiting: adequately controlled Pain: adequately controlled Airway Patency, RR, SpO2: stable & adequate BP & HR: stable & adequate Hydration State: stable & adequate Anesthetic Complications: no major complications apparent
== END 2017-05-08 14:05 | disposition home or self-care (01) ==
LOC: C.ACU 10:36
PROVIDERS: ATTEND Urology
DX: N13.30 Unspecified hydronephrosis (principal); I10 Essential (primary) hypertension; E78.5 Hyperlipidemia, unspecified; C85.90 Non-Hodgkin lymphoma, unspecified, unspecified site; E78.00 Pure hypercholesterolemia, unspecified; Z91.040 Latex allergy status; Z88.0 Allergy status to penicillin; Z96.659 Presence of unspecified artificial knee joint; Z82.49 Family history of ischemic heart disease and other diseases of the circulatory system

== ENCOUNTER 2017-05-23 09:14 | Inpatient (IN) | payer BC, OTHER ==
[~2017-05-23] VITALS: Ht 190.5 cm; Wt 117.0 kg
[~2017-05-23 09:14] MED LIST changes: +ALLO300T2 PO; -CEFTRIAXONE SOD INJ 1000 MG in DEXTROSE 5% 50ML IV SCH; +DOXE10CA PO; +OXYC-57 PO; -SODIUM CHLORIDE 0.9% 1000ML 1,000 ML IV SCH; +TRAM-10 PO
[2017-05-23] MEDS ORDERED: SODIUM CHLORIDE 0.9% 1000ML 1,000 ML IV ONE (09:45)
--- NOTE | 2017-05-23 09:57 | EMERGENCY ROOM VISIT NOTE ---
History Report prepared by Yoana: Dameon Christina Under the Supervision of: Dr. Hilario Flores D.O. First contact with patient: 09:38 Chief Complaint: FEVER Stated Complaint: PAIN AND FEVER History of Present Illness The patient is a 66 year old male who presents to the Emergency Room with complaints of persistent fever of 102.4 Fahrenheit since last night. He reports having abdominal pain for one week. He took a Percocet with Acetaminophen at 2000 last night and 0500 this morning. He denies any cough, though notes the pain is exacerbated when he takes a deep breath. The patient was recently diagnosed with lymphoma March 2017. He is scheduled to have a Mediport installed tomorrow. He has not had chemotherapy treatment yet. He contacted his oncologist, who advised him to come to the ED for evaluation. He has rashes on his abdomen, though he believes it is related to his lymphoma. He states that his urine is light yellow and clear and denies any urinary symptoms. He denies any runny nose, sore throat, or leg swelling. He denies any problems with cellulitis. He has a history of PNA, HTN and HLD. He has a history of bilateral knee replacement, carpel tunnel, and kidney stents. He notes his kidney stent was replaced two weeks ago. He denies any tobacco or alcohol use. He is taking Allopurinol. Source of History: patient Onset: since last night Position: other (global) Symptom Intensity: 102.4 Fahrenheit Timing: other (persistent) Modifying Factors (Worsening): breathing (deep breathing) Associated Symptoms: + abdominal pain, + rash, No sorethroat, No cough, No urinary symptoms Note: He denies any runny nose or leg swelling. Review of Systems See HPI for pertinent positives & negatives. A total of 10 systems reviewed and were otherwise negative. Past Medical & Surgical Medical Problems: (1) JESSICA (acute kidney injury) (2) Asthma (3) Bronchitis (4) Carpal tunnel syndrome (5) Complicated UTI (urinary tract infection) (6) HLD (hyperlipidemia) (7) HTN (hypertension) (8) Left flank pain (9) Lymphoma (10) PNA (pneumonia) (11) Ureteral mass Surgical Problems: (1) History of bilateral knee replacement (2) History of renal stent Family History Relation not specified for: FH: cancer Hypertension Social History Smoking Status: Never Smoker Smokeless Tobacco Use: No Alcohol Use: none Drug Use: none Marital Status: Housing Status: lives with significant other Occupation Status: retired Current/Historical Medications Scheduled Allopurinol (Zyloprim), 1 TAB PO QPM Amlodipine (Norvasc), 5 MG PO HS Lisinopril (Zestril), 20 MG PO QAM Lisinopril (Lisinopril), 20 MG PEG DAILY Simvastatin (Zocor), 40 MG PO HS Scheduled PRN Albuterol Hfa (Ventolin Hfa), 2 PUFFS INH Q6H PRN for PRN Clobetasol Propionate Emulsion (Clobetasol Propionate), TOP BID PRN for rash Doxepin (Sinequan), 10 MG PO DAILY PRN for Itching Montelukast Sodium (Singulair), 10 MG PO for Allergic Reaction Oxycodone/Acetaminophen 5MG/325MG (Percocet 5MG/325MG), 1 TAB PO QID PRN for Pain Tramadol (Ultram), 50 MG PO Q8H PRN for Pain Allergies Coded Allergies: Amoxicillin (Verified Allergy, Severe, SEVERE HIVES AND SWELLING, 05/23/17) Penicillins (Verified Allergy, Intermediate, SWELLING IN HANDS AND LEGS, ) Latex1 -Allergic Contact Dermititis (Verified Allergy, Mild, HANDS BURNING AND ITCHING, 05/23/17) Physical Exam Vital Signs Date Time Temp Pulse Resp B/P (MAP) Pulse Ox O2 Delivery O2 Flow Rate FiO2 05/23/17 13:10 101 18 137/98 95 Room Air 05/23/17 12:09 95 Room Air 05/23/17 12:00 103 18 131/97 100 Room Air 05/23/17 11:19 102 16 130/92 95 Room Air 05/23/17 10:46 95 05/23/17 10:42 93 20 127/90 92 Room Air 05/23/17 10:41 94 Room Air 05/23/17 09:22 37.1 127 18 148/94 94 Room Air Physical Exam GENERAL: Patient is awake, alert, and in no acute distress. Patient is resting comfortably and showing no signs of anxiety EYES: The conjunctivae are clear. The pupils are round and reactive. EARS, NOSE, MOUTH AND THROAT: The nose is without any evidence of any deformity. Mucous membranes are moist tongue is midline NECK: The neck is nontender and supple. RESPIRATORY: Normal respiratory effort is noted there is no evidence of wheezing rhonchi or rales CARDIOVASCULAR: Tachycardic rate and regular rhythm noted. No definite murmurs noted on auscultation. GASTROINTESTINAL: The abdomen is soft. Bowel sounds are present in all quadrants. Abdomen is nontender BACK: No midline tenderness or or step-off noted range of motion in flexion extension as well as rotation no signs of muscle spasm noted MUSCULOSKELETAL/EXTREMITIES: There is no evidence of gross deformity full range of motion is noted in the hips and shoulders SKIN: There is no obvious evidence of any rash. There are no petechiae, pallor or cyanosis noted. NEUROLOGIC: Patient is awake alert and oriented x3 strength is symmetric patellar reflexes are 2+ bilaterally Medical Decision & Procedures ER Provider Diagnostic Interpretation: Radiology results as stated below per my review and radiologist interpretation: CHEST ONE VIEW PORTABLE CLINICAL HISTORY: Sepsis dyspnea COMPARISON STUDY: 03/03/2017 FINDINGS: The bones soft tissues and hemidiaphragms are normal. The cardiomediastinal silhouette is normal. The lungs are clear. The pulmonary vasculature is normal. IMPRESSION: Negative chest. The above report was generated using voice recognition software. It may contain grammatical, syntax or spelling errors. Electronically signed by: Wilbur Means M.D. 05/23/2017 10:09 AM Dictated Date/Time: 05/23/2017 10:09 AM ABD/PELVIS NO IV OR ORAL CONT CT DOSE: 1062.76 mGycm HISTORY: Fever. Pain. left ureteral stent TECHNIQUE: Multiaxial CT images of the abdomen and pelvis were performed without contrast. A dose lowering technique was utilized adhering to the principles of ALARA. COMPARISON STUDY: 04/07/2017, 03/03/2017 FINDINGS: Minimal left basilar atelectasis. Lung bases otherwise are clear. Liver spleen and pancreas remain stable in appearance. Right kidney is stable in appearance with moderate perinephric fat stranding. This is unchanged compared to the study of 03/03/2017. Left ureteral stent placed 04/07/2017. General migrated slightly superiorly. A coil is within the left renal pelvis. There is increased perinephric infiltrative change of the left with slightly progressive cindy change of the periaortic and retroperitoneal regions. Abdominal aorta is slightly displaced anteriorly. This is unchanged from the prior study. There is somewhat progressive soft tissue thickening about the left ureter. There is slightly progressive infiltrative change of the lateral pelvic sidewall regions on the left. The tip of the distal ureteral stent is slightly distal and/or at the left ureterovesical junction. It is not fully reformed within normal expected coil. There are findings of a somewhat progressive pericystic infiltrative change. Bowel pattern remains nonobstructive. Mild chronic colonic diverticulosis present. The appendix is normal. Moderate right periureteral fat stranding is stable compared to the prior exams. IMPRESSION: 1. Progressive left renal perinephric infiltrative change with moderately progressive soft tissue prominence surrounding the bulk of the length the left ureter. 2. The left ureteral stent has migrated superiorly several centimeters with the distal bladder pigtail now uncoiled with the tip at the left ureteral vesicle junction. 3. Possibility of insufficient drainage capacity through the left stent due to its position must be considered. Increased distention of the left renal pelvis is present. 4. Other diagnostic considerations must include the possibility of a left renal pyelonephritis with progressive infiltrative change of the left renal perinephric fat and left periureteral soft tissues. 5. Cystitis must be considered as well with moderate increase in infiltrative change about the fascial planes of the bladder. 6. No evidence for drainable abscess or collection. 7. Primary consideration must be given to a incompletely functioning left ureteral stent due to its superior migration, with all additional findings secondary to incomplete drainage characteristics. The above report was generated using voice recognition software. It may contain grammatical, syntax or spelling errors. Electronically signed by: Wilbur Means M.D. 05/23/2017 10:39 AM Dictated Date/Time: 05/23/2017 10:25 AM Laboratory Results Test 05/23/17 10:00 05/23/17 10:11 05/23/17 10:50 Erythrocyte Sedimentation Rate 54 mm/hr (0-14) Prothrombin Time 11.2 SECONDS (9.0-12.0) Prothromb Time International Ratio 1.1 (0.9-1.1) Activated Partial Thromboplast Time 30.6 SECONDS (21.0-31.0) Partial Thromboplastin Ratio 1.2 Lactate Dehydrogenase 227 U/L (87-241) C-Reactive Protein 13.00 mg/dl (0-0.29) Lipase 70 U/L (73-393) Bedside Lactic Acid Venous 2.50 mmol/L (0.90-1.70) Urine Color YELLOW Urine Appearance CLEAR (CLEAR) Urine pH 6.0 (4.5-7.5) Urine Specific [place] 1.016 (1.000-1.030) Urine Protein 1+ (NEG) Urine Glucose (UA) NEG (NEG) Urine Ketones 1+ (NEG) Urine Occult Blood 2+ (NEG) Urine Nitrite NEG (NEG) Urine Bilirubin NEG (NEG) Urine Urobilinogen NEG (NEG) Urine Leukocyte Esterase MODERATE (NEG) Urine WBC (Auto) >30 /hpf (0-5) Urine RBC (Auto) 5-10 /hpf (0-4) Urine Hyaline Casts (Auto) 1-5 /lpf (0-5) Urine Epithelial Cells (Auto) 0-5 /lpf (0-5) Urine Bacteria (Auto) 2+ (NEG) Laboratory results per my review. Medications Administered Medications (Trade) Dose Ordered Sig/Khari Route Start Time Stop Time Status Last Admin Dose Admin Sodium Chloride 1,000 ml @ 999 mls/hr Q1H1M ONCE IV 05/23/17 09:45 05/23/17 10:45 DC 05/23/17 10:40 999 MLS/HR Levofloxacin (Levaquin / D5W) 750 mg NOW STAT IV 05/23/17 10:43 05/23/17 10:44 DC 05/23/17 10:56 750 MG Sodium Chloride 1,000 ml @ 999 mls/hr Q1H1M STAT IV 05/23/17 11:34 05/23/17 12:34 DC 05/23/17 12:08 999 MLS/HR Morphine Sulfate (MoRPHine SULFATE INJ) 2 mg STK-MED ONCE .ROUTE 05/23/17 13:05 05/23/17 13:06 DC 05/23/17 13:10 1 MG Oxycodone/ Acetaminophen (Percocet 5-325mg Tab) 1 tab QID PRN PO 05/23/17 13:45 06/06/17 13:44 05/24/17 04:52 1 TAB Sodium Chloride 1,000 ml @ 75 mls/hr [id number] IV 05/23/17 13:40 06/22/17 13:39 05/24/17 05:11 75 MLS/HR Acetaminophen (Tylenol Tab) 650 mg Q4H PRN PO 05/23/17 13:45 06/22/17 13:44 05/23/17 19:16 650 MG ECG Per My Interpretation Indication: abdominal pain Rate (beats per minute): 106 Rhythm: sinus tachycardia Findings: PAC, no acute ischemic change Change: no significant change (when compared to 03/03/2017) ED Course 0942: The patient was evaluated in room C5. A complete history and physical examination were performed. 0945: Ordered NSS 1,000 ml @ 999 mls/hr IV 1043: Ordered Levofloxacin 750 mg IV 1054: I spoke with LESVIA Bello urology. We discussed the patient's case. 1134: Ordered NSS 1,000 ml @ 999 mls/hr IV 1135: I spoke with LESVIA Bello urology. We discussed the patient's case. She recommends the patient be further evaluated. 1158: I spoke with Dr. Santo Frederick, [facility] hospitalist. We discussed the patient's case. The patient will be evaluated by the [facility] for further management. Medical Decision Prior records/ancillary studies reviewed. Triage Nursing notes reviewed. The patient's history was concerning for fever. Differential diagnosis: Etiologies such as viral syndrome, otitis, pharyngitis, pneumonia, influenza, meningitis, urinary tract infection, sepsis, bacteremia, as well as others were entertained. The patient is a 66-year-old male who presented to the emergency department for an evaluation of fever. The patient also noticed flank pain. 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 The patient was found to have signs of pyelonephritis. Given that he has an indwelling ureteral stent he was started on IV antibiotics and IV fluids. I discussed patient's laboratory and radiographic studies with him. I discussed his case with his primary urologic group. They are aware of the findings at this time. I also discussed this case with the on-call [facility] hospitalist group. They have agreed to evaluate the patient in the emergency department for further management and disposition. Medication Reconcilliation Current Medication List: was personally reviewed by me Blood Pressure Screening Patient's blood pressure: Elevated blood pressure Blood pressure disposition: Elevated BP felt to be situational Consults Time Called: 1043 Consulting Physician: LESV[facility] Bello urology Returned Call: 1054 I spoke with LESVIA Bello urology. We discussed the patient's case. 1135: I spoke with LESVIA Bello urology. We discussed the patient's case. She recommends the patient be further evaluated. Additional Consults: Time Called: 1045 Consulted Physician: COURT Gonzalez hospitalist Returned Call: 1159 Additional Comments: I spoke with COURT Gonzalez hospitalist. We discussed the patient' s case. The patient will be evaluated by the [facility] for further management. Impression Primary Impression: Pyelonephritis Additional Impressions: Infection associated with indwelling ureteral stent Fever Scribe Attestation The scribe's documentation has been prepared under my direction and personally reviewed by me in its entirety. I confirm that the note above accurately reflects all work, treatment, procedures, and medical decision making performed by me. Departure Information Dispostion Being Evaluated By Hospitalist Referrals Joel Gaona D.O. (PCP) Patient Instructions My [facility] Problem Qualifiers Additional Impressions: Infection associated with indwelling ureteral stent Encounter type: initial encounter Qualified Codes: T83.592A - Infection and inflammatory reaction due to indwelling ureteral stent, initial encounter Fever Fever type: unspecified Qualified Codes: R50.9 - Fever, unspecified
--- NOTE | 2017-05-23 10:11 | DIAGNOSTIC IMAGING REPORT ---
CHEST ONE VIEW PORTABLE CLINICAL HISTORY: Sepsis dyspnea COMPARISON STUDY: 03/03/2017 FINDINGS: The bones soft tissues and hemidiaphragms are normal. The cardiomediastinal silhouette is normal. The lungs are clear. The pulmonary vasculature is normal. IMPRESSION: Negative chest. The above report was generated using voice recognition software. It may contain grammatical, syntax or spelling errors. Electronically signed by: Wilbur Means M.D. 05/23/2017 10:09 AM Dictated Date/Time: 05/23/2017 10:09 AM
[2017-05-23 10:23] LABS: BASO % 0.2 %; BASO ABS # 0.02 K/uL (0-0.2); EOS % 0.2 %; EOS ABS # 0.03 K/uL (0-0.5); HEMATOCRIT 40.3 % (42-52); HEMOGLOBIN 13.3 g/dL (14.0-18.0); IG# 0.04 K/uL (0.00-0.02); LYMPH % 8.2 %; MEAN CORPUSCULAR HEMOGLOBIN 29.7 pg (25-34); MEAN PLATELET VOLUME 9.6 fL (7.4-10.4); MONO % 10.5 %; MONO ABS # 1.28 K/uL (0.11-0.59); NEUT % 80.6 %; NEUT ABS # 9.78 K/uL (1.4-6.5); PLATELET COUNT 220 K/uL (130-400); RED CELL DISTRIBUTION WIDTH CV 13.6 % (11.5-14.5); RED CELL DISTRIBUTION WIDTH SD 44.7 fL (36.4-46.3); WHITE BLOOD COUNT 12.15 K/uL (4.8-10.8)
[2017-05-23 10:32] LABS: INR 1.1 (0.9-1.1); PTT PATIENT 30.6 SECONDS (21.0-31.0)
[2017-05-23] MEDS ORDERED: LSN20 PEG (10:38)
[2017-05-23] MEDS ORDERED: MONT1TAB3 PO (10:38)
--- NOTE | 2017-05-23 10:40 | DIAGNOSTIC IMAGING REPORT ---
ABD/PELVIS NO IV OR ORAL CONT CT DOSE: 1062.76 mGycm HISTORY: Fever. Pain. left ureteral stent TECHNIQUE: Multiaxial CT images of the abdomen and pelvis were performed without contrast. A dose lowering technique was utilized adhering to the principles of ALARA. COMPARISON STUDY: 04/07/2017, 03/03/2017 FINDINGS: Minimal left basilar atelectasis. Lung bases otherwise are clear. Liver spleen and pancreas remain stable in appearance. Right kidney is stable in appearance with moderate perinephric fat stranding. This is unchanged compared to the study of 03/03/2017. Left ureteral stent placed 04/07/2017. General migrated slightly superiorly. A coil is within the left renal pelvis. There is increased perinephric infiltrative change of the left with slightly progressive cindy change of the periaortic and retroperitoneal regions. Abdominal aorta is slightly displaced anteriorly. This is unchanged from the prior study. There is somewhat progressive soft tissue thickening about the left ureter. There is slightly progressive infiltrative change of the lateral pelvic sidewall regions on the left. The tip of the distal ureteral stent is slightly distal and/or at the left ureterovesical junction. It is not fully reformed within normal expected coil. There are findings of a somewhat progressive pericystic infiltrative change. Bowel pattern remains nonobstructive. Mild chronic colonic diverticulosis present. The appendix is normal. Moderate right periureteral fat stranding is stable compared to the prior exams. IMPRESSION: 1. Progressive left renal perinephric infiltrative change with moderately progressive soft tissue prominence surrounding the bulk of the length the left ureter. 2. The left ureteral stent has migrated superiorly several centimeters with the distal bladder pigtail now uncoiled with the tip at the left ureteral vesicle junction. 3. Possibility of insufficient drainage capacity through the left stent due to its position must be considered. Increased distention of the left renal pelvis is present. 4. Other diagnostic considerations must include the possibility of a left renal pyelonephritis with progressive infiltrative change of the left renal perinephric fat and left periureteral soft tissues. 5. Cystitis must be considered as well with moderate increase in infiltrative change about the fascial planes of the bladder. 6. No evidence for drainable abscess or collection. 7. Primary consideration must be given to a incompletely functioning left ureteral stent due to its superior migration, with all additional findings secondary to incomplete drainage characteristics. The above report was generated using voice recognition software. It may contain grammatical, syntax or spelling errors. Electronically signed by: Wilbur Means M.D. 05/23/2017 10:39 AM Dictated Date/Time: 05/23/2017 10:25 AM
[2017-05-23 10:43] LABS: ALBUMIN 3.1 gm/dl (3.4-5.0); CALCIUM 8.8 mg/dl (8.5-10.1); CREATININE 1.59 mg/dl (0.60-1.40); POTASSIUM 3.9 mmol/L (3.5-5.1); TOTAL PROTEIN 7.5 gm/dl (6.4-8.2)
[2017-05-23] MEDS ORDERED: LEVAQUIN 750MG / 150ML D5W IV STA (10:43)
[2017-05-23] MEDS ORDERED: SODIUM CHLORIDE 0.9% 1000ML 1,000 ML IV STA (11:34)
[2017-05-23 12:09] VITALS: O2SAT 95; Ht 190.5 cm; Wt 117.0 kg
--- NOTE | 2017-05-23 12:46 | Progress Note ---
Progress Note Date of Service May 23, 2017. Progress Note 66-year-old male with lymphoma, he was planned for port placement tomorrow, however he is being admitted with pyelonephritis. We will cancel port placement for tomorrow and see how he does. If he responds well to antibiotics and needs no further procedures with the stent, then we will likely do it next week. Chemotherapy will likely be delayed as well. Spoke with the patient and his , they expressed understanding and agreed with plan of care as stated.
[2017-05-23] MEDS ORDERED: MoRPHine SULFATE 2 MG/ML CARP ONE (13:05)
[2017-05-23] MEDS ORDERED: NURSING VERBAL MED ORDER ONE (13:15)
[2017-05-23] MEDS ORDERED: CEFEPIME IV 1,000 MG in DEXTROSE 5% 100ML 100 ML IV STA (13:40)
[2017-05-23] MEDS ORDERED: ALBUTEROL HFA 8 GM INHALER INH PRN (13:45)
[2017-05-23] MEDS ORDERED: DOXEPIN HCL 10 MG CAP PO PRN (13:45)
[2017-05-23] MEDS ORDERED: MONTELUKAST SOD 10 MG TAB PO PRN (13:45)
[2017-05-23] MEDS ORDERED: VANCOMYCIN CONSULT ACTIVE PRN (13:45)
[2017-05-23] MEDS ORDERED: TRAMADOL HCL 50 MG TAB PO PRN (13:45)
[2017-05-23] MEDS ORDERED: ACETAMINOPHEN 325 MG TAB PO PRN (13:45)
[2017-05-23] MEDS ORDERED: ZOLPIDEM TARTRATE 5 MG TAB PO PRN ×2 (13:45)
[2017-05-23] MEDS ORDERED: ONDANSETRON INJ 2 MG/ML 2 ML VIAL IV PRN (13:45)
[2017-05-23] MEDS ORDERED: ALUMINUM/MAGNESIUM/SIMETH (MAALOX MAX) 30 ML UDC PO PRN (13:45)
[2017-05-23] MEDS ORDERED: CEFEPIME IV 1,000 MG in SYRINGE 0 ML IV ONE (14:30)
--- NOTE | 2017-05-23 14:35 | Urology Consultation ---
History General Date of Service: May 23, 2017. Chief Complaint: left back pain Primary Care Physician: Joel Gaona D.O. Pt seen a urologist before?: Yes (Dr. Escamilla ) If yes, why?: hydronephrosis secondary to lymphoma History of Present Illness 66 yo male presents to the ED with c/o left flank pain and fever of 102F. The pt is s/p left ureteral stent exchange 2 weeks ago for hydronephrosis secondary to lymphoma. He reports doing well after the surgery, but developed abdominal pain 1 week ago and fever yesterday. Pt also noted to have an elevated Cr of 1.59 on admission. Baseline of 0.[address] scan reviewed with Dr. Escamilla today. CT showing inflammation and likely pyelonephritis around stent, but the stent appears in good position. Pt denies any dysuria or hematuria today. Imaging Imaging: CT Laboratory Last 24 Hours Test 05/23/17 10:00 05/23/17 10:11 05/23/17 10:50 White Blood Count 12.15 K/uL Red Blood Count 4.48 M/uL Hemoglobin 13.3 g/dL Hematocrit 40.3 % Mean Corpuscular Volume 90.0 fL Mean Corpuscular Hemoglobin 29.7 pg Mean Corpuscular Hemoglobin Concent 33.0 g/dl Platelet Count 220 K/uL Mean Platelet Volume 9.6 fL Neutrophils (%) (Auto) 80.6 % Lymphocytes (%) (Auto) 8.2 % Monocytes (%) (Auto) 10.5 % Eosinophils (%) (Auto) 0.2 % Basophils (%) (Auto) 0.2 % Neutrophils # (Auto) 9.78 K/uL Lymphocytes # (Auto) 1.00 K/uL Monocytes # (Auto) 1.28 K/uL Eosinophils # (Auto) 0.03 K/uL Basophils # (Auto) 0.02 K/uL RDW Standard Deviation 44.7 fL RDW Coefficient of Variation 13.6 % Immature Granulocyte % (Auto) 0.3 % Immature Granulocyte # (Auto) 0.04 K/uL Erythrocyte Sedimentation Rate 54 mm/hr Prothrombin Time 11.2 SECONDS Prothromb Time International Ratio 1.1 Activated Partial Thromboplast Time 30.6 SECONDS Partial Thromboplastin Ratio 1.2 Sodium Level 132 mmol/L Potassium Level 3.9 mmol/L Chloride Level 98 mmol/L Carbon Dioxide Level 26 mmol/L Anion Gap 8.0 mmol/L Blood Urea Nitrogen 15 mg/dl Creatinine 1.59 mg/dl Est Creatinine Clear Calc Drug Dose 60.8 ml/min Estimated GFR () 51.3 Estimated GFR (Non- 44.3 BUN/Creatinine Ratio 9.4 Random Glucose 101 mg/dl Calcium Level 8.8 mg/dl Magnesium Level 2.1 mg/dl Total Bilirubin 1.3 mg/dl Aspartate Amino Transf (AST/SGOT) 26 U/L Alanine Aminotransferase (ALT/SGPT) 17 U/L Alkaline Phosphatase 83 U/L Lactate Dehydrogenase 227 U/L Troponin I 0.049 ng/ml C-Reactive Protein 13.00 mg/dl Total Protein 7.5 gm/dl Albumin 3.1 gm/dl Globulin 4.4 gm/dl Albumin/Globulin Ratio 0.7 Lipase 70 U/L Bedside Lactic Acid Venous 2.50 mmol/L Urine Color YELLOW Urine Appearance CLEAR Urine pH 6.0 Urine Specific [place] 1.016 Urine Protein 1+ Urine Glucose (UA) NEG Urine Ketones 1+ Urine Occult Blood 2+ Urine Nitrite NEG Urine Bilirubin NEG Urine Urobilinogen NEG Urine Leukocyte Esterase MODERATE Urine WBC (Auto) >30 /hpf Urine RBC (Auto) 5-10 /hpf Urine Hyaline Casts (Auto) 1-5 /lpf Urine Epithelial Cells (Auto) 0-5 /lpf Urine Bacteria (Auto) 2+ Problem List Medical Problems: (1) Acute renal failure Status: Acute (2) Fever Status: Acute (3) Infection associated with indwelling ureteral stent Status: Acute (4) Left ureteral calculus Status: Acute (5) Left-sided back pain Status: Acute (6) Pyelonephritis Status: Acute (7) Pyelonephritis Status: Acute Past History asthma, cancer - lymphoma, high cholesterol, hypertension, pneumonia, urinary tract infection, other (bronchitis, carpal tunnel syndrome) Past Surgical History: TKR (bilateral ), ureteral stent Family History FH: cancer Hypertension Social History Hx Tobacco Use In Past Year?: No Smoking: non-smoker Alcohol: never Drug use: none Marital status: Housing status: lives with family Occupation status: retired Immunizations History of Influenza Vaccine: No History of Tetanus Vaccine?: Yes History of Pneumococcal: No History of Hepatitis B Vaccine: Yes Allergies Coded Allergies: Amoxicillin (Verified Allergy, Severe, SEVERE HIVES AND SWELLING, 05/23/17) Penicillins (Verified Allergy, Intermediate, SWELLING IN HANDS AND LEGS, ) Latex1 -Allergic Contact Dermititis (Verified Allergy, Mild, HANDS BURNING AND ITCHING, 05/23/17) Medications Home Medications: Home Meds and Scripts Medications Dose Route/Sig Max Daily Dose Days Date Category Dose Instructions Singulair (Montelukast Sodium) 10 Mg Tab 10 Mg PO PRN 05/23/17 Reported Lisinopril 20 Mg Tab 20 Mg PEG DAILY 05/23/17 Reported Ultram (Tramadol HCl) 50 Mg Tab 50 Mg PO Q8H PRN 05/08/17 Reported Sinequan (Doxepin HCl) 10 Mg Cap 10 Mg PO DAILY PRN 05/08/17 Reported Percocet 5MG/325MG (Oxycodone/Acetaminophen) Tab 1 Tab PO QID PRN 30 05/08/17 Reported PAIN Zyloprim (Allopurinol) 300 Mg Tab 1 Tab PO QPM 30 05/08/17 Reported Ventolin Hfa (Albuterol) 200 Puffs/60229 Mcg Aers 2 Puffs INH Q6H PRN 04/28/17 Reported Norvasc (Amlodipine Besylate) 5 Mg Tab 5 Mg PO HS 04/07/17 Reported Zestril (Lisinopril) 20 Mg Tab 20 Mg PO QAM 04/07/17 Reported Clobetasol Propionate (Clobetasol Propionate Emulsion) 0.05 % Aer TOP BID PRN 03/07/17 Reported Zocor (Simvastatin) 40 Mg Tab 40 Mg PO HS 03/03/17 Reported Inpatient Medications: Current Inpatient Medications Medications (Trade) Dose Ordered Sig/Khari Route Start Time Stop Time Status Last Admin Dose Admin Morphine Sulfate (MoRPHine SULFATE INJ) 1 mg Q4H PRN IV 05/23/17 17:00 06/06/17 16:59 Albuterol (Ventolin Hfa Inhaler) 2 puffs Q6H PRN INH 05/23/17 13:45 06/22/17 13:44 UNV Allopurinol (Zyloprim Tab) 300 mg QPM PO 05/23/17 21:00 06/22/17 20:59 UNV Amlodipine Besylate (Norvasc Tab) 5 mg HS PO 05/23/17 21:00 06/22/17 20:59 UNV Doxepin HCl (Sinequan Cap) 10 mg DAILY PRN PO 05/23/17 13:45 06/22/17 13:44 UNV Montelukast Sodium (Singulair Tab) 10 mg DAILY PRN PO 05/23/17 13:45 06/22/17 13:44 UNV Oxycodone/ Acetaminophen (Percocet 5-325mg Tab) 1 tab QID PRN PO 05/23/17 13:45 06/06/17 13:44 UNV Simvastatin (Zocor Tab) 40 mg HS PO 05/23/17 21:00 06/22/17 20:59 UNV Tramadol HCl (Ultram Tab) 50 mg Q8H PRN PO 05/23/17 13:45 06/22/17 13:44 UNV Enoxaparin Sodium (Lovenox Inj) 40 mg Q24H SC 05/23/17 13:45 06/22/17 13:44 UNV Sodium Chloride 1,000 ml @ 75 mls/hr [id number] IV 05/23/17 13:40 06/22/17 13:39 UNV Acetaminophen (Tylenol Tab) 650 mg Q4H PRN PO 05/23/17 13:45 06/22/17 13:44 UNV Al Hydrox/Mg Hydrox/Simethicone (Maalox Max Susp) 15 ml Q4H PRN PO 05/23/17 13:45 06/22/17 13:44 UNV Magnesium Hydroxide (Milk Of Magnesia Susp) 30 ml Q12H PRN PO 05/23/17 13:45 06/22/17 13:44 UNV Zolpidem Tartrate (Ambien Tab) 5 mg HSZ PRN PO 05/23/17 13:45 06/22/17 13:44 UNV Zolpidem Tartrate (Ambien Tab) 5 mg HSZ PRN PO 05/23/17 13:45 06/22/17 13:44 UNV Ondansetron HCl (Zofran Inj) 4 mg Q6H PRN IV 05/23/17 13:45 06/22/17 13:44 UNV Polyethylene (Miralax Powder Packet) 17 gm DAILY PRN PO 05/23/17 13:45 06/22/17 13:44 UNV Cefepime HCl 1000 mg/Dextrose 111 ml @ 200 mls/hr Q8H STAT IV 05/23/17 13:40 05/23/17 14:13 UNV Vancomycin HCl 500 mg/Sodium Chloride 260 ml @ 125 mls/hr Q12 IV 05/23/17 21:00 06/02/17 20:59 UNV Miscellaneous Information (Consult) 1 ea UD PRN N/A 05/23/17 13:45 06/22/17 13:44 UNV Lactobacillus Acidophilus (Lactinex Granules Pack) 1 gm TIDM PO 05/23/17 18:00 06/22/17 17:59 UNV Review of Systems Review of Systems Constitutional: No fever, No chills Eyes: No double vision Neurological: No dizzy Endocrine: No excessive thirst Gastrointestinal: + abdominal pain (LLQ and left flank), No nausea, No vomiting Cardiovascular: No chest pain Respiratory: No shortness of breath Skin: No rash Musculoskeletal: + back pain (left low back ) Male : No painful urination, No blood in urine Physical Exam Vital Signs: Vital Signs Past 12 Hours Date Time Temp Pulse Resp B/P (MAP) Pulse Ox O2 Delivery O2 Flow Rate FiO2 05/23/17 13:10 101 18 137/98 95 Room Air 05/23/17 12:09 95 Room Air 05/23/17 12:00 103 18 131/97 100 Room Air 05/23/17 11:19 102 16 130/92 95 Room Air 05/23/17 10:46 95 05/23/17 10:42 93 20 127/90 92 Room Air 05/23/17 10:41 94 Room Air 05/23/17 09:22 37.1 127 18 148/94 94 Room Air Physical Exam: General Appearance: no apparent distress Eyes: bilateral eyes normal inspection ENT: hearing grossly normal Neck: no JVD Respiratory/Chest: no respiratory distress, no accessory muscle use Cardiovascular: no JVD Extremities: normal inspection Neurologic/Psychiatric: alert, normal mood/affect, oriented x 3 Skin: normal color Assessment & Plan Assessment & Plan A/P: Left hydronephrosis, suspected pyelonephritis AFVSS. Suspect likely pyelonephritis. Recommend continuing IV abx pending culture sensitivities. Would then need to transition to 14 days of oral abx if clinically improving and sensitive. No plan for surgical intervention at this time. Pain management per primary service. Thanks for the consult. Will continue to follow along with primary service.
--- NOTE | 2017-05-23 14:40 | History and Physical ---
History & Physical Date & Time of Service: May 23, 2017 at 14:20 Chief Complaint: Pain And Fever Primary Care Physician: Joel Gaona D.O. History of Present Illness Source: patient, family, hospital records 66-year-old man with past medical history of hypertension, chronic kidney disease stage III and newly diagnosed non-Hodgkin's lymphoma. Patient had mechanical obstruction of his ureters secondary to the non-Hodgkin's lymphoma. Status post bilateral stents followed by removal of his right atrial stent and currently had recent exchange on his left ureteral stent 2 weeks ago. Patient came for a follow-up in preparation to place a port start chemotherapy. He reported pain on the left flank area referred to his groin. Also reported fever last night 101. CT scan abdomen and pelvis was done and showed left ureteral stent upward migration, possible partial malfunction with infiltrative changes suggestive of pyelonephritis/cystitis Family History FH: cancer Hypertension Social History Smoking Status: Never Smoker Smokeless Tobacco Use: No Drug Use: none Marital Status: Housing status: lives with family Occupational Status: retired Immunizations History of Influenza Vaccine: No History of Tetanus Vaccine?: Yes History of Pneumococcal: No History of Hepatitis B Vaccine: Yes Allergies Coded Allergies: Amoxicillin (Verified Allergy, Severe, SEVERE HIVES AND SWELLING, 05/23/17) Penicillins (Verified Allergy, Intermediate, SWELLING IN HANDS AND LEGS, ) Latex1 -Allergic Contact Dermititis (Verified Allergy, Mild, HANDS BURNING AND ITCHING, 05/23/17) Home Medications Scheduled Allopurinol (Zyloprim), 1 TAB PO QPM Amlodipine (Norvasc), 5 MG PO HS Lisinopril (Zestril), 20 MG PO QAM Lisinopril (Lisinopril), 20 MG PEG DAILY Simvastatin (Zocor), 40 MG PO HS Scheduled PRN Albuterol Hfa (Ventolin Hfa), 2 PUFFS INH Q6H PRN for PRN Clobetasol Propionate Emulsion (Clobetasol Propionate), TOP BID PRN for rash Doxepin (Sinequan), 10 MG PO DAILY PRN for Itching Montelukast Sodium (Singulair), 10 MG PO for Allergic Reaction Oxycodone/Acetaminophen 5MG/325MG (Percocet 5MG/325MG), 1 TAB PO QID PRN for Pain Tramadol (Ultram), 50 MG PO Q8H PRN for Pain Review of Systems Review of system Constitutional: Positive for fever / no chills / no sweats / no weakness / no fatigue Eyes: no blurring of vision / no eye pain / no discharge / no redness ENT: no hearing loss / no epistaxis /no swallowing problems Respiratory: no cough / no wheezing / no SOB / no hemoptysis Cardiovascular: no Chest pain / no lower extremity edema / no palpitation Abdomen: pain in left flank area / no nausea / no vomiting / no constipation Musculoskeletal: no joint pain / no muscle pain / no joint swelling Genitourinary: no dysuria / no incontinence / no urinary retention Neurologic: no focal weakness / no numbness/tingling / no ataxia Psychiatric: no depression symptoms / no anxiety / no insomnia Endocrine: no excessive thirst / no excessive urination Hematologic: no abnormal bleeding / no bruising / no LN swelling Skin: No rash / no pallor Physical Exam Vital Signs Date Time Temp Pulse Resp B/P (MAP) Pulse Ox O2 Delivery O2 Flow Rate FiO2 05/23/17 14:06 108 18 156/106 95 Room Air 05/23/17 13:10 101 18 137/98 95 Room Air 05/23/17 12:09 95 Room Air 05/23/17 12:00 103 18 131/97 100 Room Air 05/23/17 11:19 102 16 130/92 95 Room Air 05/23/17 10:46 95 05/23/17 10:42 93 20 127/90 92 Room Air 05/23/17 10:41 94 Room Air 05/23/17 09:22 37.1 127 18 148/94 94 Room Air Physical examination General patient appears to be comfortable, not in acute distress HEENT: Atraumatic , normocephalic /no jaundice /no pallor /anicteric /no dry mucous membrane /normal external ear inspection Neck: Supple /no swelling /central trach Heart: S1/S2 normal/regular rate and rhythm/no gallop /no rub /no murmur Lungs: Clear to auscultation bilaterally/normal chest with expansion/no rhonchi/ no rales/no wheezing/no use of accessory muscles of respiration Abdomen: Soft/tenderness in left CVA and left middle quadrant, /no guarding/no rebound/no organomegaly/no pulsatile mass Musculoskeletal: No swelling/no edema/no tenderness/normal range of motion Neuro exam: Awake alert oriented 3/cranial nerves II through XII appear to be intact/sensation intact/moves all extremities/no abnormal movements Psychiatric evaluation: No depressed mood/normal affect Skin: No rash on exposed skin area/no erythema Extremity: Normal pulse/no pitting edema/no clubbing or cyanosis Endocrine/lymphatic: No obvious lymphadenopathy /no lymphedema Diagnostics Laboratory Results Results Past 24 Hours Test 05/23/17 10:00 05/23/17 10:11 05/23/17 10:50 Range/Units White Blood Count 12.15 4.8-10.8 K/uL Red Blood Count 4.48 4.7-6.1 M/uL Hemoglobin 13.3 14.0-18.0 g/dL Hematocrit 40.3 42-52 % Mean Corpuscular Volume 90.0 80-100 fL Mean Corpuscular Hemoglobin 29.7 25-34 pg Mean Corpuscular Hemoglobin Concent 33.0 32-36 g/dl Platelet Count 220 130-400 K/uL Mean Platelet Volume 9.6 7.4-10.4 fL Neutrophils (%) (Auto) 80.6 % Lymphocytes (%) (Auto) 8.2 % Monocytes (%) (Auto) 10.5 % Eosinophils (%) (Auto) 0.2 % Basophils (%) (Auto) 0.2 % Neutrophils # (Auto) 9.78 1.4-6.5 K/uL Lymphocytes # (Auto) 1.00 1.2-3.4 K/uL Monocytes # (Auto) 1.28 0.11-0.59 K/uL Eosinophils # (Auto) 0.03 0-0.5 K/uL Basophils # (Auto) 0.02 0-0.2 K/uL RDW Standard Deviation 44.7 36.4-46.3 fL RDW Coefficient of Variation 13.6 11.5-14.5 % Immature Granulocyte % (Auto) 0.3 % Immature Granulocyte # (Auto) 0.04 0.00-0.02 K/uL Erythrocyte Sedimentation Rate 54 0-14 mm/hr Prothrombin Time 11.2 9.0-12.0 SECONDS Prothromb Time International Ratio 1.1 0.9-1.1 Activated Partial Thromboplast Time 30.6 21.0-31.0 SECONDS Partial Thromboplastin Ratio 1.2 Sodium Level 132 136-145 mmol/L Potassium Level 3.9 3.5-5.1 mmol/L Chloride Level 98 98-107 mmol/L Carbon Dioxide Level 26 21-32 mmol/L Anion Gap 8.0 3-11 mmol/L Blood Urea Nitrogen 15 7-18 mg/dl Creatinine 1.59 0.60-1.40 mg/dl Est Creatinine Clear Calc Drug Dose 60.8 ml/min Estimated GFR () 51.3 Estimated GFR (Non- 44.3 BUN/Creatinine Ratio 9.4 10-20 Random Glucose 101 70-99 mg/dl Calcium Level 8.8 8.5-10.1 mg/dl Magnesium Level 2.1 1.8-2.4 mg/dl Total Bilirubin 1.3 0.2-1 mg/dl Aspartate Amino Transf (AST/SGOT) 26 15-37 U/L Alanine Aminotransferase (ALT/SGPT) 17 12-78 U/L Alkaline Phosphatase 83 45-117 U/L Lactate Dehydrogenase 227 87-241 U/L Troponin I 0.049 0-0.045 ng/ml C-Reactive Protein 13.00 0-0.29 mg/dl Total Protein 7.5 6.4-8.2 gm/dl Albumin 3.1 3.4-5.0 gm/dl Globulin 4.4 2.5-4.0 gm/dl Albumin/Globulin Ratio 0.7 0.9-2 Lipase 70 73-393 U/L Bedside Lactic Acid Venous 2.50 0.90-1.70 mmol/L Urine Color YELLOW Urine Appearance CLEAR CLEAR Urine pH 6.0 4.5-7.5 Urine Specific [place] 1.016 1.000-1.030 Urine Protein 1+ NEG Urine Glucose (UA) NEG NEG Urine Ketones 1+ NEG Urine Occult Blood 2+ NEG Urine Nitrite NEG NEG Urine Bilirubin NEG NEG Urine Urobilinogen NEG NEG Urine Leukocyte Esterase MODERATE NEG Urine WBC (Auto) >30 0-5 /hpf Urine RBC (Auto) 5-10 0-4 /hpf Urine Hyaline Casts (Auto) 1-5 0-5 /lpf Urine Epithelial Cells (Auto) 0-5 0-5 /lpf Urine Bacteria (Auto) 2+ NEG Microbiology Results 05/23/17 Blood Culture, Received Pending 05/23/17 Blood Culture, Received Pending 05/23/17 Urine Culture, Received Pending Diagnostic Radiology CT abd IMPRESSION: 1. Progressive left renal perinephric infiltrative change with moderately progressive soft tissue prominence surrounding the bulk of the length the left ureter. 2. The left ureteral stent has migrated superiorly several centimeters with the distal bladder pigtail now uncoiled with the tip at the left ureteral vesicle junction. 3. Possibility of insufficient drainage capacity through the left stent due to its position must be considered. Increased distention of the left renal pelvis is present. 4. Other diagnostic considerations must include the possibility of a left renal pyelonephritis with progressive infiltrative change of the left renal perinephric fat and left periureteral soft tissues. 5. Cystitis must be considered as well with moderate increase in infiltrative change about the fascial planes of the bladder. 6. No evidence for drainable abscess or collection. 7. Primary consideration must be given to a incompletely functioning left ureteral stent due to its superior migration, with all additional findings secondary to incomplete drainage characteristics. Impression Assessment and Plan 66-year-old man with history of high blood pressure, recent diagnosis of non- Hodgkin's lymphoma, obstructive lymphadenopathy status post ureteral stent bilaterally followed by removal of right ureteral stent and exchange of left ureteral stent 2 weeks ago. Presented to the emergency room with left flank pain and fever. Assessment Complicated UTI present on admission Left pyelonephritis in the setting of retained ureteral stent Left stent migration and possible partial malfunction Recent diagnosis of non-Hodgkin lymphoma, awaiting placement of port access Hypertension dyslipidemia border line positive troponin, likely demand ischemia Plan: admit to telemetry Urine culture, blood cultures Start empiric antibiotics IV fluid hydration no chest pain or SOB, will trend troponin Lactobacillus for C. difficile prevention Consult urologist for stent migration, stent will be exchanged under the umbrella of antibiotics prior to placement of any port Continue home medications. Hold lisinopril for now Start metoprolol. heparin for DVT prophylaxis Advanced Directives Existing Living Will: Yes Existing Power of Manager Reading: Yes Resuscitation Status VTE Prophylaxis Will order VTE Prophylaxis: Yes
[2017-05-23] MEDS: OXYCODONE/ACETAMINOPHEN 5-325 TAB PO PRN ×2 (15:08→21:49)
[2017-05-23] MEDS ORDERED: VANCOMYCIN IV 2,750 MG in SODIUM CHLORIDE 0.9% 500ML 500 ML IV STA (15:48)
--- NOTE | 2017-05-23 15:55 | Pharmacy Progress Note ---
Pharmacy Antibiotic Consult Date of Service: May 23, 2017. Pharmacy Dosing Scope Pharmacy is consulted to initiate vancomycin IV dosing therapy, order appropriate labs and adjust drug dose/frequency. Subjective The patient is a 66 year old male admitted on May 23, 2017 at 13:53. Objective Height (Feet): 6 Height (Inches): 3.00 Weight (Kilograms): 111.600 Lab Results (24hrs): Test 05/23/17 10:00 05/23/17 10:11 05/23/17 10:50 White Blood Count 12.15 K/uL (4.8-10.8) Red Blood Count 4.48 M/uL (4.7-6.1) Hemoglobin 13.3 g/dL (14.0-18.0) Hematocrit 40.3 % (42-52) Mean Corpuscular Volume 90.0 fL (80-100) Mean Corpuscular Hemoglobin 29.7 pg (25-34) Mean Corpuscular Hemoglobin Concent 33.0 g/dl (32-36) Platelet Count 220 K/uL (130-400) Mean Platelet Volume 9.6 fL (7.4-10.4) Neutrophils (%) (Auto) 80.6 % Lymphocytes (%) (Auto) 8.2 % Monocytes (%) (Auto) 10.5 % Eosinophils (%) (Auto) 0.2 % Basophils (%) (Auto) 0.2 % Neutrophils # (Auto) 9.78 K/uL (1.4-6.5) Lymphocytes # (Auto) 1.00 K/uL (1.2-3.4) Monocytes # (Auto) 1.28 K/uL (0.11-0.59) Eosinophils # (Auto) 0.03 K/uL (0-0.5) Basophils # (Auto) 0.02 K/uL (0-0.2) RDW Standard Deviation 44.7 fL (36.4-46.3) RDW Coefficient of Variation 13.6 % (11.5-14.5) Immature Granulocyte % (Auto) 0.3 % Immature Granulocyte # (Auto) 0.04 K/uL (0.00-0.02) Erythrocyte Sedimentation Rate 54 mm/hr (0-14) Prothrombin Time 11.2 SECONDS (9.0-12.0) Prothromb Time International Ratio 1.1 (0.9-1.1) Activated Partial Thromboplast Time 30.6 SECONDS (21.0-31.0) Partial Thromboplastin Ratio 1.2 Sodium Level 132 mmol/L (136-145) Potassium Level 3.9 mmol/L (3.5-5.1) Chloride Level 98 mmol/L (98-107) Carbon Dioxide Level 26 mmol/L (21-32) Anion Gap 8.0 mmol/L (3-11) Blood Urea Nitrogen 15 mg/dl (7-18) Creatinine 1.59 mg/dl (0.60-1.40) Est Creatinine Clear Calc Drug Dose 60.8 ml/min Estimated GFR () 51.3 Estimated GFR (Non- 44.3 BUN/Creatinine Ratio 9.4 (10-20) Random Glucose 101 mg/dl (70-99) Calcium Level 8.8 mg/dl (8.5-10.1) Magnesium Level 2.1 mg/dl (1.8-2.4) Total Bilirubin 1.3 mg/dl (0.2-1) Aspartate Amino Transf (AST/SGOT) 26 U/L (15-37) Alanine Aminotransferase (ALT/SGPT) 17 U/L (12-78) Alkaline Phosphatase 83 U/L (45-117) Lactate Dehydrogenase 227 U/L (87-241) Troponin I 0.049 ng/ml (0-0.045) C-Reactive Protein 13.00 mg/dl (0-0.29) Total Protein 7.5 gm/dl (6.4-8.2) Albumin 3.1 gm/dl (3.4-5.0) Globulin 4.4 gm/dl (2.5-4.0) Albumin/Globulin Ratio 0.7 (0.9-2) Lipase 70 U/L (73-393) Bedside Lactic Acid Venous 2.50 mmol/L (0.90-1.70) Urine Color YELLOW Urine Appearance CLEAR (CLEAR) Urine pH 6.0 (4.5-7.5) Urine Specific [place] 1.016 (1.000-1.030) Urine Protein 1+ (NEG) Urine Glucose (UA) NEG (NEG) Urine Ketones 1+ (NEG) Urine Occult Blood 2+ (NEG) Urine Nitrite NEG (NEG) Urine Bilirubin NEG (NEG) Urine Urobilinogen NEG (NEG) Urine Leukocyte Esterase MODERATE (NEG) Urine WBC (Auto) >30 /hpf (0-5) Urine RBC (Auto) 5-10 /hpf (0-4) Urine Hyaline Casts (Auto) 1-5 /lpf (0-5) Urine Epithelial Cells (Auto) 0-5 /lpf (0-5) Urine Bacteria (Auto) 2+ (NEG) Assessment & Plan Assessment * 66 yo M admitted w pyelonephritis. Recent ureteral stent exchange 2 weeks ago. Newly diagnosed non-Hodgkins lymphoma (not yet on chemotherapy) * Currently ordered cefepime, vancomycin. Appropriate for now, pending culture results * Renal: hx CKD III, SCr currently elevated from baseline Vancomycin * OK to load with full loading dose of 24-25 mg/kg despite renal dysfunction, but then will not re-dose until level checked tomorrow AM Plan * Vancomycin 2750 mg IV x1 now * Random level with labs in AM Pharmacy will continue to follow and will adjust dose/frequency as necessary. Thank you
[2017-05-23 15:59] VITALS: BP 153/78; PULSE 122; TEMP 37.3; O2SAT 92
[2017-05-23] MEDS: SODIUM CHLORIDE 0.9% 1000ML 1,000 ML IV SCH (16:31)
[2017-05-23] MEDS ORDERED: MoRPHine SULFATE 2 MG/ML CARP IV PRN (17:00)
[2017-05-23] MEDS: LACTOBACILLUS ACIDOPHILUS 1 GM PACK PO SCH (18:06)
[2017-05-23] MEDS: METOPROLOL TARTRATE 25 MG TAB PO SCH ×2 (18:06→21:53)
[2017-05-23 19:13] VITALS: TEMP 38.2
[2017-05-23 20:24] VITALS: BP 118/81; PULSE 90; TEMP 38.2; O2SAT 92
[2017-05-23] MEDS: ALLOPURINOL 300 MG TAB PO SCH (20:56)
[2017-05-23] MEDS: SIMVASTATIN 40 MG TAB PO SCH (20:56)
[2017-05-23] MEDS: AMLODIPINE BESYLATE 5 MG TAB PO SCH (20:56)
[2017-05-23] MEDS: ENOXAPARIN 40 MG/0.4 ML SYR SC SCH (20:58)
[2017-05-23] MEDS ORDERED: VANCOMYCIN IV 500 MG in SODIUM CHLORIDE 0.9% 250ML 250 ML IV SCH (21:00)
[2017-05-23] MEDS: CEFEPIME IV 1,000 MG in SYRINGE 0 ML IV SCH (21:48)
[2017-05-23 23:56] VITALS: BP 119/79; PULSE 82; TEMP 36.3; O2SAT 93
[2017-05-24] MEDS ORDERED: HYDROmorphone INJ 1 MG/ML SYR IV PRN
[2017-05-24 04:00] VITALS: BP 129/73; PULSE 89; TEMP 38.2; O2SAT 93
[2017-05-24] MEDS: OXYCODONE/ACETAMINOPHEN 5-325 TAB PO PRN ×3 (04:52→23:27)
[2017-05-24] MEDS: SODIUM CHLORIDE 0.9% 1000ML 1,000 ML IV SCH ×3 (05:11→20:44)
[2017-05-24] MEDS: CEFEPIME IV 1,000 MG in SYRINGE 0 ML IV SCH ×3 (05:11→22:01)
[2017-05-24 05:58] VITALS: TEMP 37.2
[2017-05-24 07:39] VITALS: BP 129/77; PULSE 97; TEMP 36.9; O2SAT 93
[2017-05-24] MEDS: LACTOBACILLUS ACIDOPHILUS 1 GM PACK PO SCH ×3 (07:40→16:31)
[2017-05-24] MEDS: METOPROLOL TARTRATE 25 MG TAB PO SCH ×2 (07:40→20:43)
[2017-05-24 07:46] LABS: BASO % 0.4 %; BASO ABS # 0.04 K/uL (0-0.2); EOS % 0.3 %; EOS ABS # 0.03 K/uL (0-0.5); HEMATOCRIT 36.6 % (42-52); HEMOGLOBIN 12.2 g/dL (14.0-18.0); IG# 0.03 K/uL (0.00-0.02); LYMPH % 10.8 %; LYMPH ABS # 1.06 K/uL (1.2-3.4); MEAN CELL VOLUME 89.1 fL (80-100); MEAN CORPUSCULAR HEMOGLOBIN 29.7 pg (25-34); MEAN CORPUSCULAR HGB CONC 33.3 g/dl (32-36); MONO ABS # 0.98 K/uL (0.11-0.59); NEUT % 78.2 %; NEUT ABS # 7.67 K/uL (1.4-6.5); PLATELET COUNT 185 K/uL (130-400); RED CELL DISTRIBUTION WIDTH SD 45.6 fL (36.4-46.3); WHITE BLOOD COUNT 9.81 K/uL (4.8-10.8)
[2017-05-24 08:05] LABS: ALBUMIN 2.9 gm/dl (3.4-5.0); CALCIUM 8.4 mg/dl (8.5-10.1); CREATININE 1.7 mg/dl (0.60-1.40); POTASSIUM 3.7 mmol/L (3.5-5.1)
--- NOTE | 2017-05-24 08:54 | Clinical Documentation Query ---
CLINICAL DOCUMENTATION QUERY 66 yo male admitted with complicated UTI. Patient's creatinine level = 1.59 - 1.70. Baseline on 04/07/17 = 1.07. In your clinical opinion is this patient being managed for: (x ) Acute kidney failure ( ) Not Agree ( ) Other explanation of clinical findings (Please Explain) ( ) Unable to determine (Please Define) ( ) Need to Discuss The medical record reflects the following clinical findings, treatment, and risk factors. Clinical Indicators: As above Treatment: IV hydration, serial PRPs Risk Factors: CKD 3, hydronephrosis, UTI Please clarify and document your clinical opinion in the progress notes and discharge summary. Terms such as "probable", "suspected", "likely", "questionable", "possible", or "still to be ruled out" are acceptable. IF IN AGREEMENT, YOU MUST DOCUMENT ABOVE DIAGNOSTIC STATEMENT IN DAILY PROGRESS NOTES AND DISCHARGE SUMMARY. This document is not part of the patient's record. Thank You, Clara Centeno RN [phone]
[2017-05-24] MEDS: VANCOMYCIN IV 1,500 MG in SODIUM CHLORIDE 0.9% 500ML 500 ML IV SCH (10:05)
--- NOTE | 2017-05-24 10:18 | Progress Note ---
Subjective Date of Service: May 24, 2017. Subjective Pt evaluation today including: conversation w/ patient, chart review, lab review Voiding: no voiding problems 66 yo male admitted for pyelonephritis. S/p left ureteral stent placement for hydronephrosis secondary to lymphoma. Pt continues to c/o left flank pain /10, although improved when he has Percocet. White count has normalized since admission. Blood and urine cultures pending. Cr noted to have increased slightly to 1.7 this morning. Noted to have elevated troponins on admission as well. Problem List Medical Problems: (1) Acute renal failure Status: Acute (2) Fever Status: Acute (3) Infection associated with indwelling ureteral stent Status: Acute (4) Left ureteral calculus Status: Acute (5) Left-sided back pain Status: Acute (6) Pyelonephritis Status: Acute (7) Pyelonephritis Status: Acute Review of Systems Constitutional: + fever, No chills Respiratory: No shortness of breath Cardiac: No chest pain Abdomen: + see HPI, + pain (left flank ), No nausea, No vomiting Musculoskeletal: + problem reported (left low back ) Male : No dysuria, No hematuria Heme: No abnormal bleeding/bruising Objective Vital Signs Date Time Temp Pulse Resp B/P (MAP) Pulse Ox O2 Delivery O2 Flow Rate FiO2 05/24/17 07:45 Room Air 05/24/17 07:39 36.9 97 16 129/77 (94) 93 Room Air 05/24/17 05:58 37.2 05/24/17 04:00 38.2 89 18 129/73 (91) 93 Room Air 05/24/17 04:00 Room Air 05/24/17 00:00 Room Air 05/23/17 23:56 36.3 82 18 119/79 (92) 93 Room Air 05/23/17 20:47 Room Air 05/23/17 20:24 38.2 90 20 118/81 (93) 92 Room Air 05/23/17 19:13 38.2 05/23/17 15:59 37.3 122 20 153/78 (103) 92 Room Air 05/23/17 15:05 106 16 133/90 94 Room Air 05/23/17 14:06 108 18 156/106 95 Room Air 05/23/17 13:10 101 18 137/98 95 Room Air 05/23/17 12:09 95 Room Air 05/23/17 12:00 103 18 131/97 100 Room Air 05/23/17 11:19 102 16 130/92 95 Room Air 05/23/17 10:46 95 05/23/17 10:42 93 20 127/90 92 Room Air 05/23/17 10:41 94 Room Air Physical Exam General Appearance: no apparent distress Eyes: normal inspection ENT: hearing grossly normal Neck: no JVD Respiratory/Chest: no respiratory distress, no accessory muscle use Cardiovascular: no JVD Extremities: normal inspection Neurologic/Psychiatric: alert, normal mood/affect, oriented x 3 Skin: normal color Laboratory Results Last 24 Hours Test 05/23/17 10:50 05/23/17 19:35 05/24/17 01:48 05/24/17 07:35 Urine Color YELLOW Urine Appearance CLEAR Urine pH 6.0 Urine Specific [place] 1.016 Urine Protein 1+ Urine Glucose (UA) NEG Urine Ketones 1+ Urine Occult Blood 2+ Urine Nitrite NEG Urine Bilirubin NEG Urine Urobilinogen NEG Urine Leukocyte Esterase MODERATE Urine WBC (Auto) >30 /hpf Urine RBC (Auto) 5-10 /hpf Urine Hyaline Casts (Auto) 1-5 /lpf Urine Epithelial Cells (Auto) 0-5 /lpf Urine Bacteria (Auto) 2+ Troponin I 0.056 ng/ml 0.054 ng/ml 0.057 ng/ml White Blood Count 9.81 K/uL Red Blood Count 4.11 M/uL Hemoglobin 12.2 g/dL Hematocrit 36.6 % Mean Corpuscular Volume 89.1 fL Mean Corpuscular Hemoglobin 29.7 pg Mean Corpuscular Hemoglobin Concent 33.3 g/dl Platelet Count 185 K/uL Mean Platelet Volume 9.0 fL Neutrophils (%) (Auto) 78.2 % Lymphocytes (%) (Auto) 10.8 % Monocytes (%) (Auto) 10.0 % Eosinophils (%) (Auto) 0.3 % Basophils (%) (Auto) 0.4 % Neutrophils # (Auto) 7.67 K/uL Lymphocytes # (Auto) 1.06 K/uL Monocytes # (Auto) 0.98 K/uL Eosinophils # (Auto) 0.03 K/uL Basophils # (Auto) 0.04 K/uL RDW Standard Deviation 45.6 fL RDW Coefficient of Variation 14.0 % Immature Granulocyte % (Auto) 0.3 % Immature Granulocyte # (Auto) 0.03 K/uL Sodium Level 133 mmol/L Potassium Level 3.7 mmol/L Chloride Level 100 mmol/L Carbon Dioxide Level 23 mmol/L Anion Gap 10.0 mmol/L Blood Urea Nitrogen 16 mg/dl Creatinine 1.70 mg/dl Est Creatinine Clear Calc Drug Dose 57.1 ml/min Estimated GFR () 47.3 Estimated GFR (Non- 40.8 BUN/Creatinine Ratio 9.4 Random Glucose 99 mg/dl Calcium Level 8.4 mg/dl Magnesium Level 2.3 mg/dl Total Bilirubin 1.3 mg/dl Aspartate Amino Transf (AST/SGOT) 23 U/L Alanine Aminotransferase (ALT/SGPT) 15 U/L Alkaline Phosphatase 73 U/L Total Protein 7.0 gm/dl Albumin 2.9 gm/dl Globulin 4.1 gm/dl Albumin/Globulin Ratio 0.7 Random Vancomycin Level 15.4 mcg/ml Assessment and Plan A/P: Left flank pain, left hydronephrosis secondary to lymphoma, ARF, pyelonephritis Continue pain management per primary service. Continue IV abx pending culture sensitivities. Will need treated for at least 14 days for suspected pyelonephritis. Hopefully will be able to transition to PO abx prior to d/c home. Continue to monitor renal function. Discussed plan again with Dr. Escamilla this morning. Will continue to observe for now and avoid any surgical intervention as his left ureteral stent appears in good position and to be functioning at this time. Will continue to follow along with primary service.
[2017-05-24 11:51] VITALS: BP 123/82; PULSE 78; TEMP 36.7; O2SAT 96
[2017-05-24 14:56] VITALS: BP 128/70; PULSE 90; TEMP 36.9; O2SAT 93
--- NOTE | 2017-05-24 15:20 | Pharmacy Progress Note ---
Pharmacy Antibiotic Prog Note Date of Service May 24, 2017. Subjective The patient has received vancomycin loading dose 05/23. Maintenance dose to be determined. The patient is currently on day # 2 of vancomycin IV therapy for pyelonephritis. Objective Height (Feet): 6 Height (Inches): 3.00 Weight (Kilograms): 112.800 Levels: Item Value Date Time Random Vancomycin Level 15.4 mcg/ml 05/24/17 0735 Previous dose hung 05/23 @1631. Lab Results (24hrs): Test 05/24/17 07:35 05/24/17 13:36 White Blood Count 9.81 K/uL (4.8-10.8) Red Blood Count 4.11 M/uL (4.7-6.1) Hemoglobin 12.2 g/dL (14.0-18.0) Hematocrit 36.6 % (42-52) Mean Corpuscular Volume 89.1 fL (80-100) Mean Corpuscular Hemoglobin 29.7 pg (25-34) Mean Corpuscular Hemoglobin Concent 33.3 g/dl (32-36) Platelet Count 185 K/uL (130-400) Mean Platelet Volume 9.0 fL (7.4-10.4) Neutrophils (%) (Auto) 78.2 % Lymphocytes (%) (Auto) 10.8 % Monocytes (%) (Auto) 10.0 % Eosinophils (%) (Auto) 0.3 % Basophils (%) (Auto) 0.4 % Neutrophils # (Auto) 7.67 K/uL (1.4-6.5) Lymphocytes # (Auto) 1.06 K/uL (1.2-3.4) Monocytes # (Auto) 0.98 K/uL (0.11-0.59) Eosinophils # (Auto) 0.03 K/uL (0-0.5) Basophils # (Auto) 0.04 K/uL (0-0.2) RDW Standard Deviation 45.6 fL (36.4-46.3) RDW Coefficient of Variation 14.0 % (11.5-14.5) Immature Granulocyte % (Auto) 0.3 % Immature Granulocyte # (Auto) 0.03 K/uL (0.00-0.02) Sodium Level 133 mmol/L (136-145) Potassium Level 3.7 mmol/L (3.5-5.1) Chloride Level 100 mmol/L (98-107) Carbon Dioxide Level 23 mmol/L (21-32) Anion Gap 10.0 mmol/L (3-11) Blood Urea Nitrogen 16 mg/dl (7-18) Creatinine 1.70 mg/dl (0.60-1.40) Est Creatinine Clear Calc Drug Dose 57.1 ml/min Estimated GFR () 47.3 Estimated GFR (Non- 40.8 BUN/Creatinine Ratio 9.4 (10-20) Random Glucose 99 mg/dl (70-99) Calcium Level 8.4 mg/dl (8.5-10.1) Magnesium Level 2.3 mg/dl (1.8-2.4) Total Bilirubin 1.3 mg/dl (0.2-1) Aspartate Amino Transf (AST/SGOT) 23 U/L (15-37) Alanine Aminotransferase (ALT/SGPT) 15 U/L (12-78) Alkaline Phosphatase 73 U/L (45-117) Troponin I 0.057 ng/ml (0-0.045) 0.052 ng/ml (0-0.045) Total Protein 7.0 gm/dl (6.4-8.2) Albumin 2.9 gm/dl (3.4-5.0) Globulin 4.1 gm/dl (2.5-4.0) Albumin/Globulin Ratio 0.7 (0.9-2) Random Vancomycin Level 15.4 mcg/ml Micro Results: 05/23 blood x2 pending 05/23 clean catch urine- diphtheroids (preliminary) Recent Pertinent Medications Item Value Date Time Vancomycin HCl 530 ml @ 200 mls/hr 05/24/17 1000 1500 mg/Sodium Q16H/IV 05/24/17 1005 Chloride Cefepime HCl 1000 11 ml @ 5.5 mls/min 05/23/17 2200 mg/Syringe Q8H/IV 05/24/17 1418 Vancomycin HCl 555 ml @ 200 mls/hr 05/23/17 1548 2750 mg/Sodium NOW STAT/IV 05/23/17 1631 Chloride Cefepime HCl 1000 11 ml @ 5.5 mls/min 05/23/17 1430 mg/Syringe 1430 ONCE/IV 05/23/17 1441 Levofloxacin 750 mg 05/23/17 1043 (Levaquin / D5W) NOW STAT/IV 05/23/17 1056 Assessment & Plan This drug level is: Therapeutic- time to redose. Will start maintenance dose and check trough after a few doses. Change to vancomycin 1500 mg IV every 16 hours. Goal trough level estimate: between 15-20 mcg/mL. Trough has been ordered for: 05/25/17 before 1800 dose. Pharmacy will continue to follow and will adjust dose/frequency as necessary. Thank you
[2017-05-24 19:54] VITALS: BP 145/84; PULSE 99; TEMP 37.5; O2SAT 95
[2017-05-24] MEDS: SIMVASTATIN 40 MG TAB PO SCH (20:43)
[2017-05-24] MEDS: AMLODIPINE BESYLATE 5 MG TAB PO SCH (20:43)
[2017-05-24] MEDS: ALLOPURINOL 300 MG TAB PO SCH (20:43)
[2017-05-24] MEDS: ENOXAPARIN 40 MG/0.4 ML SYR SC SCH (20:43)
--- NOTE | 2017-05-24 22:46 | Progress Note ---
Subjective Date of Service: May 24, 2017. Subjective Pt evaluation today including: conversation w/ patient Patient reports that he continues to have left flank pain. He reports that it is still severe. Pain medications help mildly. Patient denies fever, chills, nausea, vomiting. Problem List Medical Problems: (1) Acute renal failure Status: Acute (2) Fever Status: Acute (3) Infection associated with indwelling ureteral stent Status: Acute (4) Left ureteral calculus Status: Acute (5) Left-sided back pain Status: Acute (6) Pyelonephritis Status: Acute (7) Pyelonephritis Status: Acute Review of Systems Constitutional: No fever Eyes: No worsening of vision ENT: No hearing loss Respiratory: No cough Cardiac: No chest pain Abdomen: No pain Musculoskeletal: No joint pain Neurologic: No memory loss Psychiatric: No depression symptoms Heme: No abnormal bleeding/bruising Endo: No fatigue Skin: No itch All Other Systems: Reviewed and Negative Objective Vital Signs Date Time Temp Pulse Resp B/P (MAP) Pulse Ox O2 Delivery O2 Flow Rate FiO2 05/24/17 19:54 37.5 99 18 145/84 (104) 95 Room Air 05/24/17 19:25 Room Air 05/24/17 16:00 Room Air 05/24/17 14:56 36.9 90 20 128/70 (89) 93 Room Air 05/24/17 12:00 Room Air 05/24/17 11:51 36.7 78 18 123/82 (96) 96 Room Air 05/24/17 07:45 Room Air 05/24/17 07:39 36.9 97 16 129/77 (94) 93 Room Air 05/24/17 05:58 37.2 05/24/17 04:00 38.2 89 18 129/73 (91) 93 Room Air 05/24/17 04:00 Room Air 05/24/17 00:00 Room Air 05/23/17 23:56 36.3 82 18 119/79 (92) 93 Room Air Physical Exam General Appearance: WD/WN, no apparent distress Eyes: normal inspection ENT: normal ENT inspection Neck: supple, no adenopathy Respiratory/Chest: chest non-tender, lungs clear, normal breath sounds Cardiovascular: regular rate, rhythm, no edema Abdomen: normal bowel sounds, non tender, soft Extremities: normal range of motion Neurologic/Psychiatric: alert, oriented x 3 Skin: normal color Lymphatic: no adenopathy Laboratory Results Last 24 Hours Test 05/24/17 01:48 05/24/17 07:35 05/24/17 13:36 Troponin I 0.054 ng/ml 0.057 ng/ml 0.052 ng/ml White Blood Count 9.81 K/uL Red Blood Count 4.11 M/uL Hemoglobin 12.2 g/dL Hematocrit 36.6 % Mean Corpuscular Volume 89.1 fL Mean Corpuscular Hemoglobin 29.7 pg Mean Corpuscular Hemoglobin Concent 33.3 g/dl Platelet Count 185 K/uL Mean Platelet Volume 9.0 fL Neutrophils (%) (Auto) 78.2 % Lymphocytes (%) (Auto) 10.8 % Monocytes (%) (Auto) 10.0 % Eosinophils (%) (Auto) 0.3 % Basophils (%) (Auto) 0.4 % Neutrophils # (Auto) 7.67 K/uL Lymphocytes # (Auto) 1.06 K/uL Monocytes # (Auto) 0.98 K/uL Eosinophils # (Auto) 0.03 K/uL Basophils # (Auto) 0.04 K/uL RDW Standard Deviation 45.6 fL RDW Coefficient of Variation 14.0 % Immature Granulocyte % (Auto) 0.3 % Immature Granulocyte # (Auto) 0.03 K/uL Sodium Level 133 mmol/L Potassium Level 3.7 mmol/L Chloride Level 100 mmol/L Carbon Dioxide Level 23 mmol/L Anion Gap 10.0 mmol/L Blood Urea Nitrogen 16 mg/dl Creatinine 1.70 mg/dl Est Creatinine Clear Calc Drug Dose 57.1 ml/min Estimated GFR () 47.3 Estimated GFR (Non- 40.8 BUN/Creatinine Ratio 9.4 Random Glucose 99 mg/dl Calcium Level 8.4 mg/dl Magnesium Level 2.3 mg/dl Total Bilirubin 1.3 mg/dl Aspartate Amino Transf (AST/SGOT) 23 U/L Alanine Aminotransferase (ALT/SGPT) 15 U/L Alkaline Phosphatase 73 U/L Total Protein 7.0 gm/dl Albumin 2.9 gm/dl Globulin 4.1 gm/dl Albumin/Globulin Ratio 0.7 Random Vancomycin Level 15.4 mcg/ml Assessment and Plan 66-year-old man with history of high blood pressure, recent diagnosis of non- Hodgkin's lymphoma, obstructive lymphadenopathy status post ureteral stent bilaterally followed by removal of right ureteral stent and exchange of left ureteral stent 2 weeks ago. Presented to the emergency room with left flank pain and fever. Assessment Complicated UTI present on admission Left pyelonephritis in the setting of retained ureteral stent Left stent migration and possible partial malfunction Admit to telemetry Continue antibiotics vanco, cefepime awaiting cultures. increase IVF to 150mls/hr Demand ischemia border line positive troponin rechecked troponin. now trending down Recent diagnosis of non-Hodgkin lymphoma, awaiting placement of port access Consult urologist for stent migration, stent will be exchanged under the umbrella of antibiotics prior to placement of any port Hypertension will monitor BP. cont. metoprolol holding lisinopril for now. dyslipidemia continue home meds . heparin for DVT prophylaxis Continued [facility] stay due to: multiple IV medications needed Discharge planning: home
[2017-05-25] VITALS (7 sets, daily range): BP systolic 102–155; BP diastolic 65–96; PULSE 74–98; TEMP 36.7–37.5; O2SAT 92–97
[2017-05-25] MEDS: VANCOMYCIN IV 1,500 MG in SODIUM CHLORIDE 0.9% 500ML 500 ML IV SCH ×2 (01:43→18:56)
[2017-05-25] MEDS: CEFEPIME IV 1,000 MG in SYRINGE 0 ML IV SCH ×3 (05:43→21:07)
[2017-05-25] MEDS: SODIUM CHLORIDE 0.9% 1000ML 1,000 ML IV SCH ×3 (05:43→18:00)
[2017-05-25] MEDS: LACTOBACILLUS ACIDOPHILUS 1 GM PACK PO SCH ×3 (07:48→15:47)
[2017-05-25] MEDS: METOPROLOL TARTRATE 25 MG TAB PO SCH ×2 (07:48→21:06)
[2017-05-25] MEDS: OXYCODONE/ACETAMINOPHEN 5-325 TAB PO PRN ×3 (07:48→23:31)
--- NOTE | 2017-05-25 08:27 | Progress Note ---
Subjective Date of Service: May 25, 2017. Subjective Pt evaluation today including: conversation w/ patient, chart review Voiding: no voiding problems 66 yo male with suspected pyelonephritis; hydronephrosis secondary to lymphoma. Pt continues to have left flank pain 5-6/10. He reports he is trying to avoid narcotics this morning. C/o nausea, but no vomiting as well. Blood cultures preliminarily growing gram positive bacilli. UC&S growing diptheroids preliminarily. He has remained afebrile for 24hrs. PVR noted to be 33ml. Problem List Medical Problems: (1) Acute renal failure Status: Acute (2) Fever Status: Acute (3) Infection associated with indwelling ureteral stent Status: Acute (4) Left ureteral calculus Status: Acute (5) Left-sided back pain Status: Acute (6) Pyelonephritis Status: Acute (7) Pyelonephritis Status: Acute Review of Systems Constitutional: No fever, No chills Respiratory: No shortness of breath Cardiac: No chest pain Abdomen: No pain, No nausea, No vomiting Male : No hematuria Heme: No abnormal bleeding/bruising Objective Vital Signs Date Time Temp Pulse Resp B/P (MAP) Pulse Ox O2 Delivery O2 Flow Rate FiO2 05/25/17 07:46 37.0 74 18 130/76 (94) 95 Room Air 05/25/17 04:18 36.9 74 18 116/65 (82) 92 Room Air 05/25/17 04:00 Room Air 05/25/17 00:09 37.5 87 19 124/73 (90) 92 Room Air 05/25/17 00:02 36.9 88 19 102/69 (80) 94 Room Air 05/25/17 00:00 Room Air 05/24/17 19:54 37.5 99 18 145/84 (104) 95 Room Air 05/24/17 19:25 Room Air 05/24/17 16:00 Room Air 05/24/17 14:56 36.9 90 20 128/70 (89) 93 Room Air 05/24/17 12:00 Room Air 05/24/17 11:51 36.7 78 18 123/82 (96) 96 Room Air Physical Exam General Appearance: no apparent distress Eyes: normal inspection ENT: hearing grossly normal Neck: no JVD Respiratory/Chest: no respiratory distress, no accessory muscle use Cardiovascular: no JVD Abdomen: + tenderness (LLQ ) Extremities: normal inspection Neurologic/Psychiatric: alert, normal mood/affect, oriented x 3 Skin: normal color Laboratory Results Last 24 Hours Test 05/24/17 13:36 05/25/17 08:00 Troponin I 0.052 ng/ml Assessment and Plan A/P: Left flank pain, left hydronephrosis secondary to lymphoma, ARF, pyelonephritis Continue pain management per primary service. Continue IV abx pending culture sensitivities. Will need treated for at least 14 days for suspected pyelonephritis. Hopefully will be able to transition to PO abx prior to d/c home. Will repeat a BMP this morning to check renal function as the pt continues to have pain. Will continue to follow along with primary service.
[2017-05-25 09:04] LABS: CALCIUM 8.6 mg/dl (8.5-10.1); CREATININE 1.59 mg/dl (0.60-1.40); POTASSIUM 3.4 mmol/L (3.5-5.1)
[2017-05-25] MEDS: MAGNESIUM HYDROXIDE SUSP 30 ML UDC PO PRN (13:38)
[2017-05-25] MEDS ORDERED: POTASSIUM CHLORIDE 20 MEQ TABCR PO ONE (15:15)
[2017-05-25] MEDS ORDERED: VANCOMYCIN TROUGH ONE (17:30)
[2017-05-25] MEDS: ENOXAPARIN 40 MG/0.4 ML SYR SC SCH (21:00)
[2017-05-25] MEDS: ALLOPURINOL 300 MG TAB PO SCH (21:06)
[2017-05-25] MEDS: SIMVASTATIN 40 MG TAB PO SCH (21:06)
[2017-05-25] MEDS: AMLODIPINE BESYLATE 5 MG TAB PO SCH (21:06)
--- NOTE | 2017-05-25 22:28 | Progress Note ---
Subjective Date of Service: May 25, 2017. Subjective Pt evaluation today including: conversation w/ patient, conversation w/ family , physical exam, chart review, lab review Patient reports feeling a mild improvement. His intensity of his pain remains elevated, however, the frequency of the pain has improved as he has needed less pain medication than before. His pain is 6-7/10 and is located on his left flank and is non radiating. Pain is sharp. Patient denies any fever, chills, nausea, vomiting. Problem List Medical Problems: (1) Acute renal failure Status: Acute (2) Fever Status: Acute (3) Infection associated with indwelling ureteral stent Status: Acute (4) Left ureteral calculus Status: Acute (5) Left-sided back pain Status: Acute (6) Pyelonephritis Status: Acute (7) Pyelonephritis Status: Acute Review of Systems Constitutional: No fever, No chills Eyes: No worsening of vision ENT: No hearing loss Respiratory: No cough Cardiac: No chest pain Abdomen: No pain Musculoskeletal: No joint pain Neurologic: No memory loss Psychiatric: No depression symptoms Heme: No abnormal bleeding/bruising Endo: No fatigue Skin: No rash All Other Systems: Reviewed and Negative Medications Current Inpatient Medications Medications (Trade) Dose Ordered Sig/Khari Route Start Time Stop Time Status Last Admin Dose Admin Morphine Sulfate (MoRPHine SULFATE INJ) 1 mg Q4H PRN IV 05/23/17 17:00 06/06/17 16:59 Albuterol (Ventolin Hfa Inhaler) 2 puffs Q6H PRN INH 05/23/17 13:45 06/22/17 13:44 Allopurinol (Zyloprim Tab) 300 mg QPM PO 05/23/17 21:00 06/22/17 20:59 05/25/17 21:06 300 MG Amlodipine Besylate (Norvasc Tab) 5 mg HS PO 05/23/17 21:00 06/22/17 20:59 05/25/17 21:06 5 MG Doxepin HCl (Sinequan Cap) 10 mg DAILY PRN PO 05/23/17 13:45 06/22/17 13:44 Montelukast Sodium (Singulair Tab) 10 mg DAILY PRN PO 05/23/17 13:45 06/22/17 13:44 Oxycodone/ Acetaminophen (Percocet 5-325mg Tab) 1 tab QID PRN PO 05/23/17 13:45 06/06/17 13:44 05/25/17 15:51 1 TAB Simvastatin (Zocor Tab) 40 mg HS PO 05/23/17 21:00 06/22/17 20:59 05/25/17 21:06 40 MG Tramadol HCl (Ultram Tab) 50 mg Q8H PRN PO 05/23/17 13:45 06/22/17 13:44 05/24/17 16:30 50 MG Enoxaparin Sodium (Lovenox Inj) 40 mg Q24H SC 05/23/17 21:00 06/22/17 20:59 Sodium Chloride 1,000 ml @ 150 mls/hr Q6H40M IV 05/23/17 13:40 06/22/17 13:39 05/25/17 18:00 150 MLS/HR Acetaminophen (Tylenol Tab) 650 mg Q4H PRN PO 05/23/17 13:45 06/22/17 13:44 05/23/17 19:16 650 MG Al Hydrox/Mg Hydrox/Simethicone (Maalox Max Susp) 15 ml Q4H PRN PO 05/23/17 13:45 06/22/17 13:44 Magnesium Hydroxide (Milk Of Magnesia Susp) 30 ml Q12H PRN PO 05/23/17 13:45 06/22/17 13:44 05/25/17 13:38 30 ML Zolpidem Tartrate (Ambien Tab) 5 mg HSZ PRN PO 05/23/17 13:45 06/22/17 13:44 Ondansetron HCl (Zofran Inj) 4 mg Q6H PRN IV 05/23/17 13:45 06/22/17 13:44 Polyethylene (Miralax Powder Packet) 17 gm DAILY PRN PO 05/23/17 13:45 06/22/17 13:44 Miscellaneous Information (Consult) 1 ea UD PRN N/A 05/23/17 13:45 06/22/17 13:44 Lactobacillus Acidophilus (Lactinex Granules Pack) 1 gm TIDM PO 05/23/17 17:00 06/22/17 17:59 05/25/17 15:47 1 GM Metoprolol Tartrate (Lopressor Tab) 12.5 mg BID PO 05/23/17 15:44 06/22/17 15:43 05/25/17 21:06 12.5 MG Cefepime HCl 1000 mg/Syringe 11 ml @ 5.5 mls/min Q8H IV 05/23/17 22:00 06/02/17 21:59 05/25/17 21:07 5.5 MLS/MIN Hydromorphone HCl (Dilaudid Inj) 1 mg Q4H PRN IV 05/24/17 00:00 06/07/17 00:00 Vancomycin HCl 1500 mg/Sodium Chloride 530 ml @ 200 mls/hr Q16H IV 05/24/17 10:00 06/02/17 15:59 05/25/17 18:56 200 MLS/HR Objective Vital Signs Date Time Temp Pulse Resp B/P (MAP) Pulse Ox O2 Delivery O2 Flow Rate FiO2 05/25/17 20:55 37.0 95 18 147/87 (107) 94 Room Air 05/25/17 20:00 Room Air 05/25/17 16:00 Room Air 05/25/17 15:52 36.7 98 18 155/96 (115) 96 Room Air 05/25/17 12:00 Room Air 05/25/17 11:54 37.2 77 18 115/67 (83) 97 Room Air 05/25/17 07:46 37.0 74 18 130/76 (94) 95 Room Air 05/25/17 07:45 Room Air 05/25/17 04:18 36.9 74 18 116/65 (82) 92 Room Air 05/25/17 04:00 Room Air 05/25/17 00:09 37.5 87 19 124/73 (90) 92 Room Air 05/25/17 00:02 36.9 88 19 102/69 (80) 94 Room Air 05/25/17 00:00 Room Air Physical Exam Comments: General Appearance: WD/WN, no apparent distress Eyes: normal inspection ENT: normal ENT inspection Neck: supple, no adenopathy Respiratory/Chest: chest non-tender, lungs clear, normal breath sounds Cardiovascular: regular rate, rhythm, no edema Abdomen: normal bowel sounds, non tender, soft Extremities: normal range of motion Neurologic/Psychiatric: alert, oriented x 3 Skin: normal color Lymphatic: no adenopathy Laboratory Results Last 24 Hours Test 05/25/17 08:00 05/25/17 17:46 Sodium Level 134 mmol/L Potassium Level 3.4 mmol/L Chloride Level 101 mmol/L Carbon Dioxide Level 25 mmol/L Anion Gap 8.0 mmol/L Blood Urea Nitrogen 17 mg/dl Creatinine 1.59 mg/dl Est Creatinine Clear Calc Drug Dose 61.7 ml/min Estimated GFR () 51.3 Estimated GFR (Non- 44.3 BUN/Creatinine Ratio 10.6 Random Glucose 102 mg/dl Calcium Level 8.6 mg/dl Vancomycin Level Trough 18.9 mcg/ml Assessment and Plan 66-year-old man with history of high blood pressure, recent diagnosis of non- Hodgkin's lymphoma, obstructive lymphadenopathy status post ureteral stent bilaterally followed by removal of right ureteral stent and exchange of left ureteral stent 2 weeks ago. Presented to the emergency room with left flank pain and fever. Assessment Complicated UTI present on admission Left pyelonephritis in the setting of retained ureteral stent Left stent migration and possible partial malfunction Patient has been afebrile and has not had leukocytosis Patient has shown improvement. Continue antibiotics vanco, cefepime awaiting cultures. increase IVF to 150mls/hr Unsure if pain narendra completely go away as lymphoma is likely playing a role. Demand ischemia border line positive troponin rechecked troponin. now trending down Recent diagnosis of non-Hodgkin lymphoma, awaiting placement of port access Urology recommends conservative management for now. will monitor Hypertension will monitor BP. cont. metoprolol holding lisinopril for now. hypokalemia replaced potassium today. dyslipidemia continue home meds . heparin for DVT prophylaxis Continued [facility] stay due to: multiple IV medications needed Discharge planning: home
[2017-05-26] VITALS (8 sets, daily range): BP systolic 91–144; BP diastolic 66–84; PULSE 77–99; TEMP 36.4–37.8; O2SAT 91–99
[2017-05-26] MEDS: SODIUM CHLORIDE 0.9% 1000ML 1,000 ML IV SCH ×4 (03:11→20:15)
[2017-05-26] MEDS: CEFEPIME IV 1,000 MG in SYRINGE 0 ML IV SCH ×3 (05:50→20:41)
[2017-05-26 07:12] LABS: HEMATOCRIT 31.6 % (42-52); HEMOGLOBIN 10.6 g/dL (14.0-18.0); MEAN CELL VOLUME 88.5 fL (80-100); MEAN CORPUSCULAR HEMOGLOBIN 29.7 pg (25-34); MEAN CORPUSCULAR HGB CONC 33.5 g/dl (32-36); MEAN PLATELET VOLUME 9.1 fL (7.4-10.4); PLATELET COUNT 167 K/uL (130-400); RED CELL DISTRIBUTION WIDTH CV 13.9 % (11.5-14.5); RED CELL DISTRIBUTION WIDTH SD 45.1 fL (36.4-46.3); WHITE BLOOD COUNT 6.15 K/uL (4.8-10.8)
[2017-05-26 07:39] LABS: CREATININE 1.45 mg/dl (0.60-1.40)
[2017-05-26] MEDS: LACTOBACILLUS ACIDOPHILUS 1 GM PACK PO SCH ×3 (07:50→17:00)
[2017-05-26] MEDS: METOPROLOL TARTRATE 25 MG TAB PO SCH ×2 (07:51→20:40)
[2017-05-26] MEDS: MAGNESIUM HYDROXIDE SUSP 30 ML UDC PO PRN (08:02)
--- NOTE | 2017-05-26 09:00 | Progress Note ---
Subjective Date of Service: May 26, 2017. (Stephania Samuel CRNP) Subjective Pt evaluation today including: conversation w/ patient, chart review, lab review Voiding: no voiding problems 66 yo male with left flank pain and hydro secondary to lymphoma. Pt reports his pain is slowly improving. He feels it may be partially r/t constipation, and has now started to have some small BMs since receiving MOM. Continues to have nausea, but denies vomiting. Blood cultures growing gram positive bacilli x 2. Per lab, may need to be smeared and sent to the [facility] for ID. Cr noted to have improved again this morning to 1.45. (Stephania Samuel CRNP) Problem List Medical Problems: (1) Acute renal failure Status: Acute (2) Fever Status: Acute (3) Infection associated with indwelling ureteral stent Status: Acute (4) Left ureteral calculus Status: Acute (5) Left-sided back pain Status: Acute (6) Pyelonephritis Status: Acute (7) Pyelonephritis Status: Acute (Stephania Samuel CRNP) Review of Systems Constitutional: No fever, No chills Respiratory: No shortness of breath Cardiac: No chest pain Abdomen: No pain, No nausea, No vomiting Male : No dysuria, No hematuria Heme: No abnormal bleeding/bruising (Stephania Samuel CRNP) Objective Vital Signs Date Time Temp Pulse Resp B/P (MAP) Pulse Ox O2 Delivery O2 Flow Rate FiO2 05/26/17 07:34 37.4 84 17 120/72 (88) 94 Room Air 05/26/17 05:45 36.7 80 18 123/84 (97) 95 Room Air 05/26/17 04:00 Room Air 05/26/17 00:23 37.8 99 20 140/79 (99) 91 Room Air 05/26/17 00:00 Room Air 05/25/17 20:55 37.0 95 18 147/87 (107) 94 Room Air 05/25/17 20:00 Room Air 05/25/17 16:00 Room Air 05/25/17 15:52 36.7 98 18 155/96 (115) 96 Room Air 05/25/17 12:00 Room Air 05/25/17 11:54 37.2 77 18 115/67 (83) 97 Room Air (Stephania Samuel CRNP) Physical Exam General Appearance: no apparent distress Eyes: normal inspection ENT: hearing grossly normal Neck: no JVD Respiratory/Chest: no respiratory distress, no accessory muscle use Cardiovascular: no JVD Extremities: normal inspection Neurologic/Psychiatric: alert, normal mood/affect, oriented x 3 Skin: normal color (Stephania Samuel CRNP) Laboratory Results Last 24 Hours Test 05/25/17 17:46 05/26/17 06:46 Vancomycin Level Trough 18.9 mcg/ml White Blood Count 6.15 K/uL Red Blood Count 3.57 M/uL Hemoglobin 10.6 g/dL Hematocrit 31.6 % Mean Corpuscular Volume 88.5 fL Mean Corpuscular Hemoglobin 29.7 pg Mean Corpuscular Hemoglobin Concent 33.5 g/dl RDW Standard Deviation 45.1 fL RDW Coefficient of Variation 13.9 % Platelet Count 167 K/uL Mean Platelet Volume 9.1 fL Creatinine 1.45 mg/dl Est Creatinine Clear Calc Drug Dose 68.2 ml/min Estimated GFR () 57.3 Estimated GFR (Non- 49.5 (Stephania Samuel CRNP) Assessment and Plan A/P: Left flank pain, left hydronephrosis secondary to lymphoma, ARF, pyelonephritis Continue pain management per primary service. Continue IV abx pending culture sensitivities. Will need treated for at least 14 days for suspected pyelonephritis. Hopefully will be able to transition to PO abx prior to d/c home. May need to consider ID consult given blood culture results at this time. Continue to monitor renal function. Will continue to avoid surgical intervention at this time. Will continue to follow along with primary service. Continued [facility] stay due to: multiple IV medications needed Discharge planning: home (Stephania Samuel CRNP)
[2017-05-26] MEDS: VANCOMYCIN IV 1,500 MG in SODIUM CHLORIDE 0.9% 500ML 500 ML IV SCH (10:16)
--- NOTE | 2017-05-26 11:29 | Pharmacy Progress Note ---
Pharmacy Abx Dose Short Note Date of Service May 26, 2017. Assessment & Plan Assessment 66 year old male receiving vancomycin/cefepime for treatment of pyelonephritis/ gram positive bacilli Day # 4 of antimicrobial therapy. UC: diptheroids BC: / Gram Positive Bacilli Plan Vancomycin * Trough level of 18.9 mcg/mL is therapeutic * Will continue dose of 1500 mg q16H for now, SCr improving, may need to decrease dose if patient starts to accumulate * Goal trough level 15-20 mcg/mL * Trough level ordered for: 05/28 @ 0949 Pharmacy will continue to follow and will adjust dose/frequency as necessary. Thank you.
[2017-05-26] MEDS: ENOXAPARIN 40 MG/0.4 ML SYR SC SCH (20:37)
[2017-05-26] MEDS: ALLOPURINOL 300 MG TAB PO SCH (20:40)
[2017-05-26] MEDS: AMLODIPINE BESYLATE 5 MG TAB PO SCH (20:40)
[2017-05-26] MEDS: SIMVASTATIN 40 MG TAB PO SCH (20:40)
--- NOTE | 2017-05-26 22:31 | Progress Note ---
Subjective Date of Service: May 26, 2017. Subjective Pt evaluation today including: conversation w/ patient, conversation w/ family , physical exam Patient reports that his pain has improved today. Patient denies any fever or chills. Problem List Medical Problems: (1) Acute renal failure Status: Acute (2) Fever Status: Acute (3) Infection associated with indwelling ureteral stent Status: Acute (4) Left ureteral calculus Status: Acute (5) Left-sided back pain Status: Acute (6) Pyelonephritis Status: Acute (7) Pyelonephritis Status: Acute Review of Systems Constitutional: No fever, No chills Eyes: No worsening of vision ENT: No hearing loss Respiratory: No cough Cardiac: No chest pain Abdomen: No pain Musculoskeletal: No joint pain Neurologic: No memory loss, No paralysis Psychiatric: No depression symptoms Heme: No abnormal bleeding/bruising Endo: No fatigue Skin: No rash All Other Systems: Reviewed and Negative Medications Current Inpatient Medications Medications (Trade) Dose Ordered Sig/Khari Route Start Time Stop Time Status Last Admin Dose Admin Morphine Sulfate (MoRPHine SULFATE INJ) 1 mg Q4H PRN IV 05/23/17 17:00 06/06/17 16:59 Albuterol (Ventolin Hfa Inhaler) 2 puffs Q6H PRN INH 05/23/17 13:45 06/22/17 13:44 Allopurinol (Zyloprim Tab) 300 mg QPM PO 05/23/17 21:00 06/22/17 20:59 05/26/17 20:40 300 MG Amlodipine Besylate (Norvasc Tab) 5 mg HS PO 05/23/17 21:00 06/22/17 20:59 05/26/17 20:40 5 MG Doxepin HCl (Sinequan Cap) 10 mg DAILY PRN PO 05/23/17 13:45 06/22/17 13:44 Montelukast Sodium (Singulair Tab) 10 mg DAILY PRN PO 05/23/17 13:45 06/22/17 13:44 Oxycodone/ Acetaminophen (Percocet 5-325mg Tab) 1 tab QID PRN PO 05/23/17 13:45 06/06/17 13:44 05/25/17 23:31 1 TAB Simvastatin (Zocor Tab) 40 mg HS PO 05/23/17 21:00 06/22/17 20:59 3/16/18 20:40 40 MG Tramadol HCl (Ultram Tab) 50 mg Q8H PRN PO 05/23/17 13:45 06/22/17 13:44 05/24/17 16:30 50 MG Enoxaparin Sodium (Lovenox Inj) 40 mg Q24H SC 05/23/17 21:00 06/22/17 20:59 Sodium Chloride 1,000 ml @ 150 mls/hr Q6H40M IV 05/23/17 13:40 06/22/17 13:39 05/27/17 09:18 150 MLS/HR Acetaminophen (Tylenol Tab) 650 mg Q4H PRN PO 05/23/17 13:45 06/22/17 13:44 05/23/17 19:16 650 MG Al Hydrox/Mg Hydrox/Simethicone (Maalox Max Susp) 15 ml Q4H PRN PO 05/23/17 13:45 06/22/17 13:44 Magnesium Hydroxide (Milk Of Magnesia Susp) 30 ml Q12H PRN PO 05/23/17 13:45 06/22/17 13:44 05/26/17 08:02 30 ML Zolpidem Tartrate (Ambien Tab) 5 mg HSZ PRN PO 05/23/17 13:45 06/22/17 13:44 Ondansetron HCl (Zofran Inj) 4 mg Q6H PRN IV 05/23/17 13:45 06/22/17 13:44 Polyethylene (Miralax Powder Packet) 17 gm DAILY PRN PO 05/23/17 13:45 06/22/17 13:44 Miscellaneous Information (Consult) 1 ea UD PRN N/A 05/23/17 13:45 06/22/17 13:44 Lactobacillus Acidophilus (Lactinex Granules Pack) 1 gm TIDM PO 05/23/17 17:00 06/22/17 17:59 05/27/17 07:57 1 GM Metoprolol Tartrate (Lopressor Tab) 12.5 mg BID PO 05/23/17 15:44 06/22/17 15:43 05/27/17 07:57 12.5 MG Cefepime HCl 1000 mg/Syringe 11 ml @ 5.5 mls/min Q8H IV 05/23/17 22:00 3/23/18 21:59 05/27/17 05:31 5.5 MLS/MIN Hydromorphone HCl (Dilaudid Inj) 1 mg Q4H PRN IV 05/24/17 00:00 06/07/17 00:00 Vancomycin HCl 1500 mg/Sodium Chloride 530 ml @ 200 mls/hr Q16H IV 05/24/17 10:00 06/02/17 15:59 05/27/17 01:48 200 MLS/HR Objective Vital Signs Date Time Temp Pulse Resp B/P (MAP) Pulse Ox O2 Delivery O2 Flow Rate FiO2 05/26/17 20:33 Room Air 05/26/17 19:57 37.5 92 18 123/79 (94) 95 Room Air 05/26/17 16:00 Room Air 05/26/17 15:54 37.0 79 18 144/84 (104) 98 Room Air 05/26/17 11:45 Room Air 05/26/17 11:40 36.4 90 18 129/70 (89) 97 Room Air 05/26/17 07:45 Room Air 05/26/17 07:34 37.4 84 17 120/72 (88) 94 Room Air 05/26/17 05:45 36.7 80 18 123/84 (97) 95 Room Air 05/26/17 04:00 Room Air 05/26/17 00:23 37.8 99 20 140/79 (99) 91 Room Air 05/26/17 00:00 Room Air Physical Exam Comments: General Appearance: WD/WN, no apparent distress Eyes: normal inspection ENT: normal ENT inspection Neck: supple, no adenopathy Respiratory/Chest: chest non-tender, lungs clear, normal breath sounds Cardiovascular: regular rate, rhythm, no edema Abdomen: normal bowel sounds, non tender, soft Extremities: normal range of motion Neurologic/Psychiatric: alert, oriented x 3 Skin: normal color Lymphatic: no adenopathy Laboratory Results Last 24 Hours Test 05/26/17 06:46 White Blood Count 6.15 K/uL Red Blood Count 3.57 M/uL Hemoglobin 10.6 g/dL Hematocrit 31.6 % Mean Corpuscular Volume 88.5 fL Mean Corpuscular Hemoglobin 29.7 pg Mean Corpuscular Hemoglobin Concent 33.5 g/dl RDW Standard Deviation 45.1 fL RDW Coefficient of Variation 13.9 % Platelet Count 167 K/uL Mean Platelet Volume 9.1 fL Creatinine 1.45 mg/dl Est Creatinine Clear Calc Drug Dose 68.2 ml/min Estimated GFR () 57.3 Estimated GFR (Non- 49.5 Assessment and Plan 66-year-old man with history of high blood pressure, recent diagnosis of non- Hodgkin's lymphoma, obstructive lymphadenopathy status post ureteral stent bilaterally followed by removal of right ureteral stent and exchange of left ureteral stent 2 weeks ago. Presented to the emergency room with left flank pain and fever. Assessment Complicated UTI present on admission Left pyelonephritis in the setting of retained ureteral stent Left stent migration and possible partial malfunction Patient has been afebrile and has not had leukocytosis Patient has shown improvement. Continue antibiotics vanco, cefepime awaiting cultures: 2 Blood cultures are showing gram positive bacilli. Urine are showing diphteroids. Gram positive bacilli can also sometimes be mistaken for gram negative rods. increase IVF to 150mls/h Thankfully pain has been relived. Patient believes it may have been related with constipation. Patient is ok with staying however, his spouse is getting upset that he needs to stay. Demand ischemia border line positive troponin rechecked troponin. now trending down Recent diagnosis of non-Hodgkin lymphoma, awaiting placement of port access Urology recommends conservative management for now. will monitor Hypertension will monitor BP. cont. metoprolol holding lisinopril for now. hypokalemia replaced potassium yesterday dyslipidemia continue home meds . heparin for DVT prophylaxis Continued [facility] stay due to: multiple IV medications needed Discharge planning: home
[2017-05-27] MEDS: VANCOMYCIN IV 1,500 MG in SODIUM CHLORIDE 0.9% 500ML 500 ML IV SCH ×2 (01:48→17:51)
[2017-05-27] MEDS: SODIUM CHLORIDE 0.9% 1000ML 1,000 ML IV SCH ×3 (01:48→15:27)
[2017-05-27] MEDS: CEFEPIME IV 1,000 MG in SYRINGE 0 ML IV SCH ×3 (05:31→21:08)
[2017-05-27 07:46] VITALS: BP 124/70; PULSE 79; TEMP 37.5; O2SAT 95
[2017-05-27] MEDS: METOPROLOL TARTRATE 25 MG TAB PO SCH ×2 (07:57→21:04)
[2017-05-27] MEDS: LACTOBACILLUS ACIDOPHILUS 1 GM PACK PO SCH ×3 (07:57→17:14)
--- NOTE | 2017-05-27 10:08 | Progress Note ---
Subjective Date of Service: May 27, 2017. Subjective Pt evaluation today including: conversation w/ patient Patient reports feeling better today. Patient feels like he has more energy. Patient has less generalized malaise. Problem List Medical Problems: (1) Acute renal failure Status: Acute (2) Fever Status: Acute (3) Infection associated with indwelling ureteral stent Status: Acute (4) Left ureteral calculus Status: Acute (5) Left-sided back pain Status: Acute (6) Pyelonephritis Status: Acute (7) Pyelonephritis Status: Acute Review of Systems Constitutional: No fever, No chills Eyes: No worsening of vision ENT: No hearing loss Respiratory: No cough Cardiac: No chest pain Abdomen: No pain Neurologic: No memory loss Psychiatric: No depression symptoms Heme: No abnormal bleeding/bruising Endo: No fatigue Skin: No rash All Other Systems: Reviewed and Negative Medications Current Inpatient Medications Medications (Trade) Dose Ordered Sig/Khari Route Start Time Stop Time Status Last Admin Dose Admin Morphine Sulfate (MoRPHine SULFATE INJ) 1 mg Q4H PRN IV 05/23/17 17:00 06/06/17 16:59 Albuterol (Ventolin Hfa Inhaler) 2 puffs Q6H PRN INH 05/23/17 13:45 06/22/17 13:44 Allopurinol (Zyloprim Tab) 300 mg QPM PO 05/23/17 21:00 06/22/17 20:59 05/26/17 20:40 300 MG Amlodipine Besylate (Norvasc Tab) 5 mg HS PO 05/23/17 21:00 06/22/17 20:59 05/26/17 20:40 5 MG Doxepin HCl (Sinequan Cap) 10 mg DAILY PRN PO 05/23/17 13:45 06/22/17 13:44 Montelukast Sodium (Singulair Tab) 10 mg DAILY PRN PO 05/23/17 13:45 06/22/17 13:44 Oxycodone/ Acetaminophen (Percocet 5-325mg Tab) 1 tab QID PRN PO 05/23/17 13:45 06/06/17 13:44 05/25/17 23:31 1 TAB Simvastatin (Zocor Tab) 40 mg HS PO 05/23/17 21:00 06/22/17 20:59 05/26/17 20:40 40 MG Tramadol HCl (Ultram Tab) 50 mg Q8H PRN PO 05/23/17 13:45 06/22/17 13:44 05/24/17 16:30 50 MG Enoxaparin Sodium (Lovenox Inj) 40 mg Q24H SC 05/23/17 21:00 06/22/17 20:59 Sodium Chloride 1,000 ml @ 150 mls/hr Q6H40M IV 05/23/17 13:40 06/22/17 13:39 05/27/17 09:18 150 MLS/HR Acetaminophen (Tylenol Tab) 650 mg Q4H PRN PO 05/23/17 13:45 06/22/17 13:44 05/23/17 19:16 650 MG Al Hydrox/Mg Hydrox/Simethicone (Maalox Max Susp) 15 ml Q4H PRN PO 05/23/17 13:45 06/22/17 13:44 Magnesium Hydroxide (Milk Of Magnesia Susp) 30 ml Q12H PRN PO 05/23/17 13:45 06/22/17 13:44 05/26/17 08:02 30 ML Zolpidem Tartrate (Ambien Tab) 5 mg HSZ PRN PO 05/23/17 13:45 06/22/17 13:44 Ondansetron HCl (Zofran Inj) 4 mg Q6H PRN IV 05/23/17 13:45 06/22/17 13:44 Polyethylene (Miralax Powder Packet) 17 gm DAILY PRN PO 05/23/17 13:45 06/22/17 13:44 Miscellaneous Information (Consult) 1 ea UD PRN N/A 05/23/17 13:45 06/22/17 13:44 Lactobacillus Acidophilus (Lactinex Granules Pack) 1 gm TIDM PO 05/23/17 17:00 06/22/17 17:59 05/27/17 07:57 1 GM Metoprolol Tartrate (Lopressor Tab) 12.5 mg BID PO 05/23/17 15:44 06/22/17 15:43 05/27/17 07:57 12.5 MG Cefepime HCl 1000 mg/Syringe 11 ml @ 5.5 mls/min Q8H IV 05/23/17 22:00 06/02/17 21:59 05/27/17 05:31 5.5 MLS/MIN Hydromorphone HCl (Dilaudid Inj) 1 mg Q4H PRN IV 05/24/17 00:00 06/07/17 00:00 Vancomycin HCl 1500 mg/Sodium Chloride 530 ml @ 200 mls/hr Q16H IV 05/24/17 10:00 06/02/17 15:59 05/27/17 01:48 200 MLS/HR Objective Vital Signs Date Time Temp Pulse Resp B/P (MAP) Pulse Ox O2 Delivery O2 Flow Rate FiO2 05/27/17 07:46 37.5 79 20 124/70 (88) 95 Room Air 05/26/17 23:08 37.7 88 18 137/82 (100) 93 Room Air 05/26/17 20:33 Room Air 05/26/17 19:57 37.5 92 18 123/79 (94) 95 Room Air 05/26/17 16:00 Room Air 05/26/17 15:54 37.0 79 18 144/84 (104) 98 Room Air 05/26/17 11:45 Room Air 05/26/17 11:40 36.4 90 18 129/70 (89) 97 Room Air Physical Exam Comments: General Appearance: WD/WN, no apparent distress Eyes: normal inspection ENT: normal ENT inspection Neck: supple, no adenopathy Respiratory/Chest: chest non-tender, lungs clear, normal breath sounds Cardiovascular: regular rate, rhythm, no edema Abdomen: normal bowel sounds, non tender, soft Extremities: normal range of motion Neurologic/Psychiatric: alert, oriented x 3 Skin: normal color Lymphatic: no adenopathy Laboratory Results Last 24 Hours Test 05/27/17 09:55 Assessment and Plan 66-year-old man with history of high blood pressure, recent diagnosis of non- Hodgkin's lymphoma, obstructive lymphadenopathy status post ureteral stent bilaterally followed by removal of right ureteral stent and exchange of left ureteral stent 2 weeks ago. Presented to the emergency room with left flank pain and fever. Assessment Complicated UTI present on admission Left pyelonephritis in the setting of retained ureteral stent Left stent migration and possible partial malfunction Patient has been afebrile and has not had leukocytosis Patient has shown improvement. Continue antibiotics vanco, cefepime awaiting cultures: 2 Blood cultures are showing gram positive bacilli. Urine are showing diphteroids. Gram positive bacilli can also sometimes be mistaken for gram negative rods. Hold IVF today and moniotr his I's and O's Thankfully pain has been relived. Patient believes it may have been related with constipation. Patient and spouse are ok to stay. consult ID. Demand ischemia border line positive troponin rechecked troponin. now trending down Recent diagnosis of non-Hodgkin lymphoma, awaiting placement of port access Urology recommends conservative management for now. will monitor Hypertension will monitor BP. cont. metoprolol holding lisinopril for now. hypokalemia replaced potassium yesterday dyslipidemia continue home meds . heparin for DVT prophylaxis Continued [facility] stay due to: multiple IV medications needed Discharge planning: home
[2017-05-27 11:36] LABS: CALCIUM 8.9 mg/dl (8.5-10.1); CREATININE 1.2 mg/dl (0.60-1.40); POTASSIUM 3.9 mmol/L (3.5-5.1)
[2017-05-27 16:00] VITALS: O2SAT 95
[2017-05-27 16:28] VITALS: BP 140/84; PULSE 79; TEMP 36.9; O2SAT 97
[2017-05-27] MEDS ORDERED: NURSING VERBAL MED ORDER ONE (17:00)
[2017-05-27] MEDS: POLYETHYLENE (MIRALAX) 17 GM PACK PO PRN (18:14)
[2017-05-27 19:09] VITALS: BP 126/80; PULSE 94; TEMP 37.1; O2SAT 90
[2017-05-27] MEDS: ENOXAPARIN 40 MG/0.4 ML SYR SC SCH (21:00)
[2017-05-27] MEDS: AMLODIPINE BESYLATE 5 MG TAB PO SCH (21:03)
[2017-05-27] MEDS: SIMVASTATIN 40 MG TAB PO SCH (21:04)
[2017-05-27] MEDS: ALLOPURINOL 300 MG TAB PO SCH (21:04)
--- NOTE | 2017-05-27 21:52 | Progress Note ---
Subjective Date of Service: May 27, 2017. Subjective Pt evaluation today including: conversation w/ patient, conversation w/ family , physical exam, chart review, lab review, review of studies, conversation w/ wardrobe image consultant pt feeling well and awaiting culture results pain much better Discussed w pt and hospitalist , awaiting culture result to start w port for chemo Problem List Medical Problems: (1) Acute renal failure Status: Acute (2) Fever Status: Acute (3) Infection associated with indwelling ureteral stent Status: Acute (4) Left ureteral calculus Status: Acute (5) Left-sided back pain Status: Acute (6) Pyelonephritis Status: Acute (7) Pyelonephritis Status: Acute Objective Vital Signs Date Time Temp Pulse Resp B/P (MAP) Pulse Ox O2 Delivery O2 Flow Rate FiO2 05/27/17 19:09 37.1 94 18 126/80 (95) 90 Room Air 05/27/17 16:28 36.9 79 20 140/84 (102) 97 Room Air 05/27/17 16:00 95 Room Air 05/27/17 07:46 37.5 79 20 124/70 (88) 95 Room Air 05/26/17 23:08 37.7 88 18 137/82 (100) 93 Room Air Laboratory Results Last 24 Hours Test 05/27/17 10:04 Sodium Level 137 mmol/L Potassium Level 3.9 mmol/L Chloride Level 104 mmol/L Carbon Dioxide Level 25 mmol/L Anion Gap 9.0 mmol/L Blood Urea Nitrogen 12 mg/dl Creatinine 1.20 mg/dl Est Creatinine Clear Calc Drug Dose 82.4 ml/min Estimated GFR () 72.1 Estimated GFR (Non- 62.2 BUN/Creatinine Ratio 10.3 Random Glucose 96 mg/dl Calcium Level 8.9 mg/dl Assessment and Plan awaiting culture result ok from gu pov Continued [facility] stay due to: multiple IV medications needed Discharge planning: home
[2017-05-27 23:00] VITALS: BP 139/89; PULSE 82; TEMP 37.4; O2SAT 95
[2017-05-27 23:30] VITALS: O2SAT 95
[2017-05-28] MEDS: CEFEPIME IV 1,000 MG in SYRINGE 0 ML IV SCH ×4 (06:38→22:10)
[2017-05-28 07:19] VITALS: BP 135/83; PULSE 77; TEMP 36.9; O2SAT 96
[2017-05-28 08:00] VITALS: O2SAT 96
[2017-05-28] MEDS: LACTOBACILLUS ACIDOPHILUS 1 GM PACK PO SCH ×3 (08:06→16:03)
[2017-05-28] MEDS: METOPROLOL TARTRATE 25 MG TAB PO SCH ×2 (08:06→21:13)
[2017-05-28] MEDS: POLYETHYLENE (MIRALAX) 17 GM PACK PO PRN ×2 (08:10→23:51)
[2017-05-28] MEDS ORDERED: VANCOMYCIN TROUGH ONE (09:30)
[2017-05-28] MEDS: VANCOMYCIN IV 1,500 MG in SODIUM CHLORIDE 0.9% 500ML 500 ML IV SCH (10:12)
--- NOTE | 2017-05-28 11:27 | Progress Note ---
Subjective Date of Service: May 28, 2017. Subjective Patient todasy has no complaints. Resting well in bed. Problem List Medical Problems: (1) Acute renal failure Status: Acute (2) Fever Status: Acute (3) Infection associated with indwelling ureteral stent Status: Acute (4) Left ureteral calculus Status: Acute (5) Left-sided back pain Status: Acute (6) Pyelonephritis Status: Acute (7) Pyelonephritis Status: Acute Review of Systems All Other Systems: Reviewed and Negative Objective Vital Signs Date Time Temp Pulse Resp B/P (MAP) Pulse Ox O2 Delivery O2 Flow Rate FiO2 05/28/17 08:00 96 Room Air 05/28/17 07:19 36.9 77 18 135/83 (100) 96 Room Air 05/27/17 23:30 95 Room Air 05/27/17 23:00 37.4 82 20 139/89 (106) 95 Room Air 05/27/17 19:09 37.1 94 18 126/80 (95) 90 Room Air 05/27/17 16:28 36.9 79 20 140/84 (102) 97 Room Air 05/27/17 16:00 95 Room Air Physical Exam Comments: General Appearance: WD/WN, no apparent distress Eyes: normal inspection ENT: normal ENT inspection Neck: supple, no adenopathy Respiratory/Chest: chest non-tender, lungs clear, normal breath sounds Cardiovascular: regular rate, rhythm, no edema Abdomen: normal bowel sounds, non tender, soft Extremities: normal range of motion Neurologic/Psychiatric: alert, oriented x 3 Skin: normal color Lymphatic: no adenopathy Laboratory Results Last 24 Hours Test 05/28/17 09:26 Vancomycin Level Trough 16.2 mcg/ml Assessment and Plan 66-year-old man with history of high blood pressure, recent diagnosis of non- Hodgkin's lymphoma, obstructive lymphadenopathy status post ureteral stent bilaterally followed by removal of right ureteral stent and exchange of left ureteral stent 2 weeks ago. Presented to the emergency room with left flank pain and fever. Assessment Complicated UTI present on admission Left pyelonephritis in the setting of retained ureteral stent Left stent migration and possible partial malfunction No change in plan from yesterday. Patient has been afebrile and has not had leukocytosis Patient has shown improvement. Continue antibiotics vanco, cefepime awaiting cultures: 2 Blood cultures are showing gram positive bacilli. Urine are showing diphteroids. Gram positive bacilli can also sometimes be mistaken for gram negative rods. Hold IVF today and moniotr his I's and O's Thankfully pain has been relived. Patient believes it may have been related with constipation. Patient and spouse are ok to stay. consult ID. Demand ischemia border line positive troponin rechecked troponin. now trending down Recent diagnosis of non-Hodgkin lymphoma, awaiting placement of port access Urology recommends conservative management for now. will monitor Hypertension will monitor BP. cont. metoprolol holding lisinopril for now. hypokalemia replaced potassium yesterday dyslipidemia continue home meds . heparin for DVT prophylaxis Continued [facility] stay due to: multiple IV medications needed Discharge planning: home
[2017-05-28] MEDS ORDERED: LACTULOSE SYRUP 30 GM/45 ML UDP PO STA (11:30)
[2017-05-28 15:01] VITALS: BP 133/79; PULSE 89; TEMP 36.4; O2SAT 97
--- NOTE | 2017-05-28 15:14 | Medical Consult ---
Consultation Date of Consultation: May 28, 2017. Attending Physician: Kei Alexis M.D. Reason for Consultation: Bacteremia History of Present Illness 66-year-old male with history of hypertension, hyperlipidemia, chronic kidney disease, was diagnosed recently with non-Hodgkin's lymphoma with bilateral ureteral obstruction. Underwent bilateral stent placement with improvement, had removal of right ureteral stent recently. Left was changed approximately 2 weeks ago, then 1 week ago patient noted progressively worsening left-sided abdominal pain then fever and chills. Was brought to the emergency room where he was found on CT scan, reviewed by me, showing left hydronephrosis and possible pyelonephritis. Blood and urine cultures now growing gram-positive bacilli. Patient currently being treated with IV vancomycin. Feeling better with decrease in temperature and pain. Tolerating vancomycin without apparent difficulty. Patient awaiting placement of a port for chemotherapy. Past Medical/Surgical History Medical Problems: (1) Acute renal failure Status: Acute (2) Fever Status: Acute (3) Infection associated with indwelling ureteral stent Status: Acute (4) Left ureteral calculus Status: Acute (5) Left-sided back pain Status: Acute (6) Pyelonephritis Status: Acute (7) Pyelonephritis Status: Acute Medical Problems: (1) JESSICA (acute kidney injury) (2) Asthma (3) Bronchitis (4) Carpal tunnel syndrome (5) Complicated UTI (urinary tract infection) (6) HLD (hyperlipidemia) (7) HTN (hypertension) (8) Left flank pain (9) Lymphoma (10) PNA (pneumonia) (11) Ureteral mass Surgical Problems: (1) History of bilateral knee replacement (2) History of renal stent Family History FH: cancer Hypertension Social History Smoking Status: Never Smoker Smokeless Tobacco Use: No Drug Use: none Marital Status: Housing Status: lives with significant other Occupation Status: retired Allergies Coded Allergies: Amoxicillin (Verified Allergy, Severe, SEVERE HIVES AND SWELLING, 05/23/17) Penicillins (Verified Allergy, Intermediate, SWELLING IN HANDS AND LEGS, ) Latex1 -Allergic Contact Dermititis (Verified Allergy, Mild, HANDS BURNING AND ITCHING, 05/23/17) Current Inpatient Medications Current Inpatient Medications Medications (Trade) Dose Ordered Sig/Khari Route Start Time Stop Time Status Last Admin Dose Admin Morphine Sulfate (MoRPHine SULFATE INJ) 1 mg Q4H PRN IV 05/23/17 17:00 06/06/17 16:59 Albuterol (Ventolin Hfa Inhaler) 2 puffs Q6H PRN INH 05/23/17 13:45 06/22/17 13:44 Allopurinol (Zyloprim Tab) 300 mg QPM PO 05/23/17 21:00 06/22/17 20:59 05/27/17 21:04 300 MG Amlodipine Besylate (Norvasc Tab) 5 mg HS PO 05/23/17 21:00 06/22/17 20:59 05/27/17 21:03 5 MG Doxepin HCl (Sinequan Cap) 10 mg DAILY PRN PO 05/23/17 13:45 06/22/17 13:44 Montelukast Sodium (Singulair Tab) 10 mg DAILY PRN PO 05/23/17 13:45 06/22/17 13:44 Oxycodone/ Acetaminophen (Percocet 5-325mg Tab) 1 tab QID PRN PO 05/23/17 13:45 06/06/17 13:44 05/25/17 23:31 1 TAB Simvastatin (Zocor Tab) 40 mg HS PO 05/23/17 21:00 06/22/17 20:59 05/27/17 21:04 40 MG Tramadol HCl (Ultram Tab) 50 mg Q8H PRN PO 05/23/17 13:45 06/22/17 13:44 05/24/17 16:30 50 MG Enoxaparin Sodium (Lovenox Inj) 40 mg Q24H SC 05/23/17 21:00 06/22/17 20:59 Acetaminophen (Tylenol Tab) 650 mg Q4H PRN PO 05/23/17 13:45 06/22/17 13:44 05/23/17 19:16 650 MG Al Hydrox/Mg Hydrox/Simethicone (Maalox Max Susp) 15 ml Q4H PRN PO 05/23/17 13:45 06/22/17 13:44 Magnesium Hydroxide (Milk Of Magnesia Susp) 30 ml Q12H PRN PO 05/23/17 13:45 06/22/17 13:44 05/28/17 00:00 30 ML Zolpidem Tartrate (Ambien Tab) 5 mg HSZ PRN PO 05/23/17 13:45 06/22/17 13:44 Ondansetron HCl (Zofran Inj) 4 mg Q6H PRN IV 05/23/17 13:45 06/22/17 13:44 Polyethylene (Miralax Powder Packet) 17 gm DAILY PRN PO 05/23/17 13:45 06/22/17 13:44 05/28/17 08:10 17 GM Miscellaneous Information (Consult) 1 ea UD PRN N/A 05/23/17 13:45 06/22/17 13:44 Lactobacillus Acidophilus (Lactinex Granules Pack) 1 gm TIDM PO 05/23/17 17:00 06/22/17 17:59 05/28/17 13:09 1 GM Metoprolol Tartrate (Lopressor Tab) 12.5 mg BID PO 05/23/17 15:44 06/22/17 15:43 05/28/17 08:06 12.5 MG Cefepime HCl 1000 mg/Syringe 11 ml @ 5.5 mls/min Q8H IV 05/23/17 22:00 06/02/17 21:59 05/28/17 13:50 5.5 MLS/MIN Hydromorphone HCl (Dilaudid Inj) 1 mg Q4H PRN IV 05/24/17 00:00 06/07/17 00:00 Vancomycin HCl 1500 mg/Sodium Chloride 530 ml @ 200 mls/hr Q16H IV 05/24/17 10:00 06/02/17 15:59 05/28/17 10:12 200 MLS/HR Review of Systems All systems were reviewed and are negative except as per HPI Physical Exam Date Time Temp Pulse Resp B/P (MAP) Pulse Ox O2 Delivery O2 Flow Rate FiO2 05/28/17 15:01 36.4 89 18 133/79 (97) 97 Room Air 05/28/17 08:00 96 Room Air 05/28/17 07:19 36.9 77 18 135/83 (100) 96 Room Air 05/27/17 23:30 95 Room Air 05/27/17 23:00 37.4 82 20 139/89 (106) 95 Room Air 05/27/17 19:09 37.1 94 18 126/80 (95) 90 Room Air 05/27/17 16:28 36.9 79 20 140/84 (102) 97 Room Air 05/27/17 16:00 95 Room Air General Appearance: WD/WN, no apparent distress Head: normocephalic, atraumatic Eyes: normal inspection, EOMI, sclerae normal ENT: normal ENT inspection, hearing grossly normal, pharynx normal Neck: supple, no adenopathy, thyroid normal, trachea midline Respiratory/Chest: chest non-tender, lungs clear, normal breath sounds, no respiratory distress Cardiovascular: regular rate, rhythm, no gallop, no murmur Abdomen/GI: normal bowel sounds, non tender, soft, no organomegaly Back: normal inspection, + left CVA tenderness Extremities/Musculoskelatal: normal inspection, no calf tenderness, non-tender Neurologic/Psych: alert, normal mood/affect, oriented x 3 Skin: normal color, warm/dry, no rash Lymphatic: no adenopathy Laboratory Results RUN DATE: 05/27/17 [facility] LAB PAGE 1 RUN TIME: 747 Specimen Inquiry [facility]: [id number] # : [id number] AGE/SX: 66/M ROOM: [facility] REG : 05/23/[address]: Kei Alexis M.D. : 1950 BED: 1 DIS : STATUS: ADM IN TLOC: SPEC #: [id number] MEI: 05/23/17-999 STATUS: RES REQ #: [id number] RECD: 05/23/17-1013 [facility] DR: Hilario Flores DO SOURCE: BLOOD ENTR: 05/23/17-[address] [facility] [address]: Joel Gaona D.O. [facility]: ORDERED: BLOOD CULTURE Procedure Result Verified Site BLD CULT Preliminary 05/27/17-747 Organism 1 GRAM POSITIVE BACILLI SENS NO SENSITIVITY TO FOLLOW Phoned Positive Blood Culture Gram Stain Report to [facility] SON on 05/24/17 At 2153 By ANDRES. Results were verbalized back to ANDRES. Last 24 Hours Test 05/28/17 09:26 Vancomycin Level Trough 16.2 mcg/ml ABD/PELVIS NO IV OR ORAL CONT CT DOSE: 1062.76 mGycm HISTORY: Fever. Pain. left ureteral stent TECHNIQUE: Multiaxial CT images of the abdomen and pelvis were performed without contrast. A dose lowering technique was utilized adhering to the principles of ALARA. COMPARISON STUDY: 04/07/2017, 03/03/2017 FINDINGS: Minimal left basilar atelectasis. Lung bases otherwise are clear. Liver spleen and pancreas remain stable in appearance. Right kidney is stable in appearance with moderate perinephric fat stranding. This is unchanged compared to the study of 03/03/2017. Left ureteral stent placed 04/07/2017. General migrated slightly superiorly. A coil is within the left renal pelvis. There is increased perinephric infiltrative change of the left with slightly progressive cindy change of the periaortic and retroperitoneal regions. Abdominal aorta is slightly displaced anteriorly. This is unchanged from the prior study. There is somewhat progressive soft tissue thickening about the left ureter. There is slightly progressive infiltrative change of the lateral pelvic sidewall regions on the left. The tip of the distal ureteral stent is slightly distal and/or at the left ureterovesical junction. It is not fully reformed within normal expected coil. There are findings of a somewhat progressive pericystic infiltrative change. Bowel pattern remains nonobstructive. Mild chronic colonic diverticulosis present. The appendix is normal. Moderate right periureteral fat stranding is stable compared to the prior exams. IMPRESSION: 1. Progressive left renal perinephric infiltrative change with moderately progressive soft tissue prominence surrounding the bulk of the length the left ureter. 2. The left ureteral stent has migrated superiorly several centimeters with the distal bladder pigtail now uncoiled with the tip at the left ureteral vesicle junction. 3. Possibility of insufficient drainage capacity through the left stent due to its position must be considered. Increased distention of the left renal pelvis is present. 4. Other diagnostic considerations must include the possibility of a left renal pyelonephritis with progressive infiltrative change of the left renal perinephric fat and left periureteral soft tissues. 5. Cystitis must be considered as well with moderate increase in infiltrative change about the fascial planes of the bladder. 6. No evidence for drainable abscess or collection. 7. Primary consideration must be given to a incompletely functioning left ureteral stent due to its superior migration, with all additional findings secondary to incomplete drainage characteristics. The above report was generated using v Assessment & Plan 66-year-old male with non-Hodgkin's lymphoma with obstructive uropathy from lymphadenopathy in status post ureteral stenting now with Gram-positive bacillary sepsis with probable pyelonephritis. Given antibiotic allergies, vancomycin appropriate pending further identification. Likely will require 10- 14 days of IV antibiotic therapy depending on clinical response. Would obtain follow-up blood cultures to ensure clearance of bacteremia. Will follow.
[2017-05-28] MEDS: MAGNESIUM HYDROXIDE SUSP 30 ML UDC PO PRN ×2 (16:03)
[2017-05-28 19:24] VITALS: BP 131/89; PULSE 95; TEMP 36.7; O2SAT 95
[2017-05-28] MEDS ORDERED: BISACODYL 10 MG SUPP PR ONE (19:30)
[2017-05-28] MEDS: ENOXAPARIN 40 MG/0.4 ML SYR SC SCH (21:00)
[2017-05-28] MEDS: AMLODIPINE BESYLATE 5 MG TAB PO SCH (21:14)
[2017-05-28] MEDS: SIMVASTATIN 40 MG TAB PO SCH (21:14)
[2017-05-28] MEDS: ALLOPURINOL 300 MG TAB PO SCH (21:14)
[2017-05-29 00:25] VITALS: BP 142/85; PULSE 93; TEMP 36.8; O2SAT 95
[2017-05-29] MEDS: VANCOMYCIN IV 1,500 MG in SODIUM CHLORIDE 0.9% 500ML 500 ML IV SCH ×2 (01:46→17:46)
[2017-05-29 06:13] LABS: HEMATOCRIT 34.4 % (42-52); HEMOGLOBIN 11.2 g/dL (14.0-18.0); MEAN CELL VOLUME 89.4 fL (80-100); MEAN CORPUSCULAR HEMOGLOBIN 29.1 pg (25-34); MEAN CORPUSCULAR HGB CONC 32.6 g/dl (32-36); MEAN PLATELET VOLUME 9.4 fL (7.4-10.4); PLATELET COUNT 226 K/uL (130-400); WHITE BLOOD COUNT 6.14 K/uL (4.8-10.8)
[2017-05-29] MEDS: CEFEPIME IV 1,000 MG in SYRINGE 0 ML IV SCH ×3 (06:23→22:00)
[2017-05-29 06:34] LABS: CREATININE 1.07 mg/dl (0.60-1.40)
[2017-05-29 07:40] VITALS: BP 117/70; PULSE 109; TEMP 36.9; O2SAT 95
[2017-05-29] MEDS: POLYETHYLENE (MIRALAX) 17 GM PACK PO PRN (07:57)
[2017-05-29] MEDS: LACTOBACILLUS ACIDOPHILUS 1 GM PACK PO SCH ×3 (07:59→17:10)
[2017-05-29] MEDS: METOPROLOL TARTRATE 25 MG TAB PO SCH ×2 (08:00→21:07)
[2017-05-29 08:38] VITALS: O2SAT 96
--- NOTE | 2017-05-29 10:47 | Progress Note ---
Subjective Date of Service: May 29, 2017. Subjective Pt evaluation today including: conversation w/ patient, chart review, lab review Voiding: no voiding problems Pain has improved, but pt continues to c/o constipation and feels this is the source of most of his pain. He has tried suppositories, Miralax, and MOM for the constipation which has produced some small BMs. Pt denies vomiting this morning. No issues voiding. Cr has normalized at 1.07. Blood cultures sent out an pending. Problem List Medical Problems: (1) Acute renal failure Status: Acute (2) Fever Status: Acute (3) Infection associated with indwelling ureteral stent Status: Acute (4) Left ureteral calculus Status: Acute (5) Left-sided back pain Status: Acute (6) Pyelonephritis Status: Acute (7) Pyelonephritis Status: Acute Review of Systems Constitutional: No fever, No chills Respiratory: No shortness of breath Cardiac: No chest pain Abdomen: + constipation, No pain, No nausea, No vomiting Male : No dysuria, No hematuria Heme: No abnormal bleeding/bruising Objective Vital Signs Date Time Temp Pulse Resp B/P (MAP) Pulse Ox O2 Delivery O2 Flow Rate FiO2 05/29/17 08:38 96 Room Air 05/29/17 07:40 36.9 109 18 117/70 (86) 95 Room Air 05/29/17 00:25 36.8 93 20 142/85 (104) 95 Room Air 05/29/17 00:00 Room Air 05/28/17 19:24 36.7 95 18 131/89 (103) 95 Room Air 05/28/17 16:00 Room Air 05/28/17 15:01 36.4 89 18 133/79 (97) 97 Room Air Physical Exam General Appearance: no apparent distress Eyes: normal inspection ENT: hearing grossly normal Neck: no JVD Respiratory/Chest: no respiratory distress, no accessory muscle use Cardiovascular: no JVD Extremities: normal inspection Neurologic/Psychiatric: alert, normal mood/affect, oriented x 3 Skin: normal color Laboratory Results Last 24 Hours Test 05/29/17 05:28 White Blood Count 6.14 K/uL Red Blood Count 3.85 M/uL Hemoglobin 11.2 g/dL Hematocrit 34.4 % Mean Corpuscular Volume 89.4 fL Mean Corpuscular Hemoglobin 29.1 pg Mean Corpuscular Hemoglobin Concent 32.6 g/dl RDW Standard Deviation 46.0 fL RDW Coefficient of Variation 14.0 % Platelet Count 226 K/uL Mean Platelet Volume 9.4 fL Creatinine 1.07 mg/dl Est Creatinine Clear Calc Drug Dose 92.4 ml/min Estimated GFR () 82.8 Estimated GFR (Non- 71.5 Assessment and Plan A/P: Left flank pain, left hydronephrosis secondary to lymphoma, ARF, pyelonephritis Continue pain management per primary service. Constipation management per primary service. Hopeful that he will start to feel better if he is able to start producing regular BMs. Continue IV abx per ID. ARF has improved. Will continue to avoid surgical intervention at this time. No further management at this time. Recall PRN issues. Will arrange for outpatient f/u with Dr. Escamilla in 2 weeks. Thanks for allowing us to participate in this pt's care. Continued [facility] stay due to: multiple IV medications needed Discharge planning: home
--- NOTE | 2017-05-29 11:29 | Progress Note ---
Progress Note Date of Service May 29, 2017. Progress Note 66-year-old male with lymphoma admitted for complicated urinary tract infection with pyelonephritis. He was scheduled for a port last week, but we delayed his surgery due to his infection. At this point the patient has positive blood cultures with gram-positive bacilli, and infectious disease is recommending 2 weeks of IV antibiotics as well as repeat blood cultures in the near future. His cultures have been sent out for further growth. Infectious diseases also recommended that we delay placing the port. At this point we will hold off on placing the port until the patient is cleared by infectious disease. Please call the clinic this patient approaches discharge we will schedule him for port placement. I discussed this with the patient and they expressed understanding.
[2017-05-29] MEDS: MAGNESIUM HYDROXIDE SUSP 30 ML UDC PO PRN (12:58)
--- NOTE | 2017-05-29 15:14 | Infectious Disease Progress Nt ---
Progress Note Date of Service May 29, 2017. Subjective Pt evaluation today including: conversation w/ patient, conversation w/ family , physical exam, chart review, lab review, review of studies, conversation w/ cloud consultant, review of inpatient medication list Complaining of constipation, otherwise feeling somewhat better. No increase in abdominal pain. No fever chills. White count improved. Follow-up blood cultures pending. All Other Systems: Reviewed and Negative Medications Current Inpatient Medications Medications (Trade) Dose Ordered Sig/Khari Route Start Time Stop Time Status Last Admin Dose Admin Morphine Sulfate (MoRPHine SULFATE INJ) 1 mg Q4H PRN IV 05/23/17 17:00 06/06/17 16:59 Albuterol (Ventolin Hfa Inhaler) 2 puffs Q6H PRN INH 05/23/17 13:45 06/22/17 13:44 Allopurinol (Zyloprim Tab) 300 mg QPM PO 05/23/17 21:00 06/22/17 20:59 05/28/17 21:14 300 MG Amlodipine Besylate (Norvasc Tab) 5 mg HS PO 05/23/17 21:00 06/22/17 20:59 05/28/17 21:14 5 MG Doxepin HCl (Sinequan Cap) 10 mg DAILY PRN PO 05/23/17 13:45 06/22/17 13:44 Montelukast Sodium (Singulair Tab) 10 mg DAILY PRN PO 05/23/17 13:45 06/22/17 13:44 Oxycodone/ Acetaminophen (Percocet 5-325mg Tab) 1 tab QID PRN PO 05/23/17 13:45 06/06/17 13:44 05/25/17 23:31 1 TAB Simvastatin (Zocor Tab) 40 mg HS PO 05/23/17 21:00 06/22/17 20:59 05/28/17 21:14 40 MG Tramadol HCl (Ultram Tab) 50 mg Q8H PRN PO 05/23/17 13:45 06/22/17 13:44 05/24/17 16:30 50 MG Enoxaparin Sodium (Lovenox Inj) 40 mg Q24H SC 05/23/17 21:00 06/22/17 20:59 Acetaminophen (Tylenol Tab) 650 mg Q4H PRN PO 05/23/17 13:45 06/22/17 13:44 05/23/17 19:16 650 MG Al Hydrox/Mg Hydrox/Simethicone (Maalox Max Susp) 15 ml Q4H PRN PO 05/23/17 13:45 06/22/17 13:44 Magnesium Hydroxide (Milk Of Magnesia Susp) 30 ml Q12H PRN PO 05/23/17 13:45 06/22/17 13:44 05/29/17 12:58 30 ML Zolpidem Tartrate (Ambien Tab) 5 mg HSZ PRN PO 05/23/17 13:45 06/22/17 13:44 Ondansetron HCl (Zofran Inj) 4 mg Q6H PRN IV 05/23/17 13:45 06/22/17 13:44 Polyethylene (Miralax Powder Packet) 17 gm DAILY PRN PO 05/23/17 13:45 06/22/17 13:44 05/29/17 07:57 17 GM Miscellaneous Information (Consult) 1 ea UD PRN N/A 05/23/17 13:45 06/22/17 13:44 Lactobacillus Acidophilus (Lactinex Granules Pack) 1 gm TIDM PO 05/23/17 17:00 06/22/17 17:59 05/29/17 12:48 1 GM Metoprolol Tartrate (Lopressor Tab) 12.5 mg BID PO 05/23/17 15:44 06/22/17 15:43 05/29/17 08:00 12.5 MG Cefepime HCl 1000 mg/Syringe 11 ml @ 5.5 mls/min Q8H IV 05/23/17 22:00 06/02/17 21:59 05/29/17 13:45 5.5 MLS/MIN Hydromorphone HCl (Dilaudid Inj) 1 mg Q4H PRN IV 05/24/17 00:00 06/07/17 00:00 Vancomycin HCl 1500 mg/Sodium Chloride 530 ml @ 200 mls/hr Q16H IV 05/24/17 10:00 06/02/17 15:59 05/29/17 01:46 200 MLS/HR Objective Vital Signs Date Time Temp Pulse Resp B/P (MAP) Pulse Ox O2 Delivery O2 Flow Rate FiO2 05/29/17 08:38 96 Room Air 05/29/17 07:40 36.9 109 18 117/70 (86) 95 Room Air 05/29/17 00:25 36.8 93 20 142/85 (104) 95 Room Air 05/29/17 00:00 Room Air 05/28/17 19:24 36.7 95 18 131/89 (103) 95 Room Air 05/28/17 16:00 Room Air Physical Exam General Appearance: WD/WN, no apparent distress Eyes: normal inspection, EOMI, sclerae normal ENT: normal ENT inspection, hearing grossly normal, pharynx normal Neck: supple, no adenopathy, thyroid normal, trachea midline Respiratory/Chest: chest non-tender, lungs clear, normal breath sounds, no respiratory distress Cardiovascular: regular rate, rhythm, no gallop, no murmur Abdomen: normal bowel sounds, non tender, soft, no organomegaly Extremities: non-tender, no calf tenderness Neurologic/Psychiatric: alert, normal mood/affect, oriented x 3 Skin: normal color, warm/dry, no rash Lymphatic: no adenopathy Laboratory Results Date/Time Source Procedure Growth Status 05/29/17 14:31 Blood Blood Culture Pending Received 05/29/17 14:14 Blood Blood Culture Pending Received Last 24 Hours Test 05/29/17 05:28 White Blood Count 6.14 K/uL Red Blood Count 3.85 M/uL Hemoglobin 11.2 g/dL Hematocrit 34.4 % Mean Corpuscular Volume 89.4 fL Mean Corpuscular Hemoglobin 29.1 pg Mean Corpuscular Hemoglobin Concent 32.6 g/dl RDW Standard Deviation 46.0 fL RDW Coefficient of Variation 14.0 % Platelet Count 226 K/uL Mean Platelet Volume 9.4 fL Creatinine 1.07 mg/dl Est Creatinine Clear Calc Drug Dose 92.4 ml/min Estimated GFR () 82.8 Estimated GFR (Non- 71.5 Assessment and Plan 66-year-old male with non-Hodgkin's lymphoma with obstructive uropathy from lymphadenopathy in status post ureteral stenting now with Gram-positive bacillary sepsis with probable pyelonephritis. Given antibiotic allergies, vancomycin appropriate pending further identification. Likely will require 10- 14 days of IV antibiotic therapy depending on clinical response. Await final follow-up blood cultures. Will follow.
[2017-05-29 15:49] VITALS: BP 129/87; PULSE 91; TEMP 36.7; O2SAT 96
[2017-05-29 15:51] VITALS: O2SAT 96
--- NOTE | 2017-05-29 18:12 | Progress Note ---
Subjective Date of Service: May 29, 2017. Subjective Pt evaluation today including: conversation w/ patient, conversation w/ family , physical exam, chart review, lab review, review of inpatient medication list Pain: Abdominal pain is under control PO Intake: Oral intake is adequate He has no new complaints today Problem List Medical Problems: (1) Acute renal failure Status: Acute (2) Fever Status: Acute (3) Infection associated with indwelling ureteral stent Status: Acute (4) Left ureteral calculus Status: Acute (5) Left-sided back pain Status: Acute (6) Pyelonephritis Status: Acute (7) Pyelonephritis Status: Acute Review of Systems Review of system Constitutional: No fever / no chills / no sweats / no weakness / no fatigue Eyes: no blurring of vision / no eye pain / no discharge / no redness ENT: no hearing loss / no epistaxis /no swallowing problems Respiratory: no cough / no wheezing / no SOB / no hemoptysis Cardiovascular: no Chest pain / no lower extremity edema / no palpitation Abdomen: no pain / no nausea / no vomiting / no constipation Musculoskeletal: no joint pain / no muscle pain / no joint swelling Genitourinary: no dysuria / no incontinence / no urinary retention Neurologic: no focal weakness / no numbness/tingling / no ataxia Psychiatric: no depression symptoms / no anxiety / no insomnia Endocrine: no excessive thirst / no excessive urination Hematologic: no abnormal bleeding / no bruising / no LN swelling Skin: No rash / no pallor Medications Current Inpatient Medications Medications (Trade) Dose Ordered Sig/Khari Route Start Time Stop Time Status Last Admin Dose Admin Morphine Sulfate (MoRPHine SULFATE INJ) 1 mg Q4H PRN IV 05/23/17 17:00 06/06/17 16:59 Albuterol (Ventolin Hfa Inhaler) 2 puffs Q6H PRN INH 05/23/17 13:45 06/22/17 13:44 Allopurinol (Zyloprim Tab) 300 mg QPM PO 05/23/17 21:00 06/22/17 20:59 05/28/17 21:14 300 MG Amlodipine Besylate (Norvasc Tab) 5 mg HS PO 05/23/17 21:00 06/22/17 20:59 05/28/17 21:14 5 MG Doxepin HCl (Sinequan Cap) 10 mg DAILY PRN PO 05/23/17 13:45 06/22/17 13:44 Montelukast Sodium (Singulair Tab) 10 mg DAILY PRN PO 05/23/17 13:45 06/22/17 13:44 Oxycodone/ Acetaminophen (Percocet 5-325mg Tab) 1 tab QID PRN PO 05/23/17 13:45 06/06/17 13:44 05/25/17 23:31 1 TAB Simvastatin (Zocor Tab) 40 mg HS PO 05/23/17 21:00 06/22/17 20:59 05/28/17 21:14 40 MG Tramadol HCl (Ultram Tab) 50 mg Q8H PRN PO 05/23/17 13:45 06/22/17 13:44 05/24/17 16:30 50 MG Enoxaparin Sodium (Lovenox Inj) 40 mg Q24H SC 05/23/17 21:00 06/22/17 20:59 Acetaminophen (Tylenol Tab) 650 mg Q4H PRN PO 05/23/17 13:45 06/22/17 13:44 05/23/17 19:16 650 MG Al Hydrox/Mg Hydrox/Simethicone (Maalox Max Susp) 15 ml Q4H PRN PO 05/23/17 13:45 06/22/17 13:44 Magnesium Hydroxide (Milk Of Magnesia Susp) 30 ml Q12H PRN PO 05/23/17 13:45 06/22/17 13:44 05/29/17 12:58 30 ML Zolpidem Tartrate (Ambien Tab) 5 mg HSZ PRN PO 05/23/17 13:45 06/22/17 13:44 Ondansetron HCl (Zofran Inj) 4 mg Q6H PRN IV 05/23/17 13:45 06/22/17 13:44 Polyethylene (Miralax Powder Packet) 17 gm DAILY PRN PO 05/23/17 13:45 06/22/17 13:44 05/29/17 07:57 17 GM Miscellaneous Information (Consult) 1 ea UD PRN N/A 05/23/17 13:45 06/22/17 13:44 Lactobacillus Acidophilus (Lactinex Granules Pack) 1 gm TIDM PO 05/23/17 17:00 06/22/17 17:59 3/19/18 17:10 1 GM Metoprolol Tartrate (Lopressor Tab) 12.5 mg BID PO 05/23/17 15:44 06/22/17 15:43 05/29/17 08:00 12.5 MG Cefepime HCl 1000 mg/Syringe 11 ml @ 5.5 mls/min Q8H IV 05/23/17 22:00 06/02/17 21:59 05/29/17 13:45 5.5 MLS/MIN Hydromorphone HCl (Dilaudid Inj) 1 mg Q4H PRN IV 05/24/17 00:00 06/07/17 00:00 Vancomycin HCl 1500 mg/Sodium Chloride 530 ml @ 200 mls/hr Q16H IV 05/24/17 10:00 06/02/17 15:59 05/29/17 17:46 200 MLS/HR Objective Vital Signs Date Time Temp Pulse Resp B/P (MAP) Pulse Ox O2 Delivery O2 Flow Rate FiO2 05/29/17 15:51 96 Room Air 05/29/17 15:49 36.7 91 20 129/87 (101) 96 05/29/17 08:38 96 Room Air 05/29/17 07:40 36.9 109 18 117/70 (86) 95 Room Air 05/29/17 00:25 36.8 93 20 142/85 (104) 95 Room Air 05/29/17 00:00 Room Air 05/28/17 19:24 36.7 95 18 131/89 (103) 95 Room Air Physical Exam Comments: Physical examination General patient appears to be comfortable, not in acute distress HEENT: Atraumatic , normocephalic /no jaundice /no pallor /anicteric /no dry mucous membrane /normal external ear inspection Neck: Supple /no swelling /central trach Heart: S1/S2 normal/regular rate and rhythm/no gallop /no rub /no murmur Lungs: Clear to auscultation bilaterally/normal chest with expansion/no rhonchi/ no rales/no wheezing/no use of accessory muscles of respiration Abdomen: Soft/nontender/no guarding/no rebound/no organomegaly/no pulsatile mass Musculoskeletal: No swelling/no edema/no tenderness/normal range of motion Neuro exam: Awake alert oriented 3/cranial nerves II through XII appear to be intact/sensation intact/moves all extremities/no abnormal movements Psychiatric evaluation: No depressed mood/normal affect Skin: No rash on exposed skin area/no erythema Extremity: Normal pulse/no pitting edema/no clubbing or cyanosis Endocrine/lymphatic: No obvious lymphadenopathy /no lymphedema Laboratory Results Last 24 Hours Test 05/29/17 05:28 White Blood Count 6.14 K/uL Red Blood Count 3.85 M/uL Hemoglobin 11.2 g/dL Hematocrit 34.4 % Mean Corpuscular Volume 89.4 fL Mean Corpuscular Hemoglobin 29.1 pg Mean Corpuscular Hemoglobin Concent 32.6 g/dl RDW Standard Deviation 46.0 fL RDW Coefficient of Variation 14.0 % Platelet Count 226 K/uL Mean Platelet Volume 9.4 fL Creatinine 1.07 mg/dl Est Creatinine Clear Calc Drug Dose 92.4 ml/min Estimated GFR () 82.8 Estimated GFR (Non- 71.5 Assessment and Plan 66-year-old man with history of high blood pressure, recent diagnosis of non- Hodgkin's lymphoma, obstructive lymphadenopathy status post ureteral stent bilaterally followed by removal of right ureteral stent and exchange of left ureteral stent 2 weeks ago. Presented to the emergency room with left flank pain and fever. Assessment Complicated UTI present on admission Left pyelonephritis in the setting of retained ureteral stent Left stent migration and possible partial malfunction Gram-positive bacilli bacteremia Recent diagnosis of non-Hodgkin lymphoma, awaiting placement of port access Hypertension dyslipidemia border line positive troponin, likely demand ischemia Plan: Reviewed results of urine culture, blood cultures Blood cultures 2 out of 2 grew gram-positive bacilli, results were sent to [facility], ordered repeat blood cultures today, improved significantly on vancomycin Urine culture grew diphtheroid, I called microbiology lab and ask them to send urine diphtheroid also to [facility] for sensitivity no chest pain or SOB, will trend troponin Lactobacillus for C. difficile prevention Consult urologist for stent migration, stent will be exchanged under the umbrella of antibiotics prior to placement of any port Continue home medications. Hold lisinopril for now Continue metoprolol. heparin for DVT prophylaxis Continued [facility] stay due to: multiple IV medications needed Discharge planning: home
[2017-05-29 19:31] VITALS: BP 119/78; PULSE 92; TEMP 36.5; O2SAT 94
[2017-05-29] MEDS: ENOXAPARIN 40 MG/0.4 ML SYR SC SCH (21:00)
[2017-05-29] MEDS: ALLOPURINOL 300 MG TAB PO SCH (21:06)
[2017-05-29] MEDS: AMLODIPINE BESYLATE 5 MG TAB PO SCH (21:08)
[2017-05-29] MEDS: SIMVASTATIN 40 MG TAB PO SCH (21:09)
[2017-05-29] MEDS ORDERED: POLYETHYLENE (MIRALAX) 17 GM PACK PO STA (21:57)
[2017-05-30] VITALS (8 sets, daily range): BP systolic 122–157; BP diastolic 77–84; PULSE 77–98; TEMP 36.7–37.5; O2SAT 92–97
[2017-05-30] MEDS: CEFEPIME IV 1,000 MG in SYRINGE 0 ML IV SCH ×3 (05:49→21:33)
[2017-05-30 06:44] LABS: BASO % 0.7 %; BASO ABS # 0.05 K/uL (0-0.2); EOS % 3.6 %; EOS ABS # 0.25 K/uL (0-0.5); HEMATOCRIT 35.1 % (42-52); HEMOGLOBIN 11.7 g/dL (14.0-18.0); IG# 0.08 K/uL (0.00-0.02); LYMPH % 26.6 %; LYMPH ABS # 1.85 K/uL (1.2-3.4); MEAN CELL VOLUME 89.8 fL (80-100); MEAN CORPUSCULAR HEMOGLOBIN 29.9 pg (25-34); MEAN CORPUSCULAR HGB CONC 33.3 g/dl (32-36); MEAN PLATELET VOLUME 9.1 fL (7.4-10.4); MONO % 14.2 %; MONO ABS # 0.99 K/uL (0.11-0.59); NEUT % 53.8 %; NEUT ABS # 3.74 K/uL (1.4-6.5); PLATELET COUNT 237 K/uL (130-400); RED CELL DISTRIBUTION WIDTH CV 13.8 % (11.5-14.5); RED CELL DISTRIBUTION WIDTH SD 45.5 fL (36.4-46.3); WHITE BLOOD COUNT 6.96 K/uL (4.8-10.8)
[2017-05-30 07:22] LABS: ALBUMIN 2.7 gm/dl (3.4-5.0); CALCIUM 8.9 mg/dl (8.5-10.1); CREATININE 1.23 mg/dl (0.60-1.40); POTASSIUM 3.3 mmol/L (3.5-5.1)
[2017-05-30 07:25] LABS: TOTAL PROTEIN 6.9 gm/dl (6.4-8.2)
[2017-05-30] MEDS: METOPROLOL TARTRATE 25 MG TAB PO SCH ×2 (08:10→21:29)
[2017-05-30] MEDS: LACTOBACILLUS ACIDOPHILUS 1 GM PACK PO SCH ×3 (08:10→16:38)
[2017-05-30] MEDS: POLYETHYLENE (MIRALAX) 17 GM PACK PO PRN (08:12)
[2017-05-30] MEDS: VANCOMYCIN IV 1,500 MG in SODIUM CHLORIDE 0.9% 500ML 500 ML IV SCH (11:05)
--- NOTE | 2017-05-30 16:11 | Progress Note ---
Subjective Date of Service: May 30, 2017. Subjective Pt evaluation today including: conversation w/ patient, conversation w/ family , physical exam, chart review, lab review, conversation w/ j2ee consultant, review of inpatient medication list Pain: Under control PO Intake: Adequate Voiding: no voiding problems Problem List Medical Problems: (1) Acute renal failure Status: Acute (2) Fever Status: Acute (3) Infection associated with indwelling ureteral stent Status: Acute (4) Left ureteral calculus Status: Acute (5) Left-sided back pain Status: Acute (6) Pyelonephritis Status: Acute (7) Pyelonephritis Status: Acute Review of Systems Review of system Constitutional: No fever / no chills / no sweats / no weakness / no fatigue Eyes: no blurring of vision / no eye pain / no discharge / no redness ENT: no hearing loss / no epistaxis /no swallowing problems Respiratory: no cough / no wheezing / no SOB / no hemoptysis Cardiovascular: no Chest pain / no lower extremity edema / no palpitation Abdomen: no pain / no nausea / no vomiting / no constipation Musculoskeletal: no joint pain / no muscle pain / no joint swelling Genitourinary: no dysuria / no incontinence / no urinary retention Neurologic: no focal weakness / no numbness/tingling / no ataxia Psychiatric: no depression symptoms / no anxiety / no insomnia Endocrine: no excessive thirst / no excessive urination Hematologic: no abnormal bleeding / no bruising / no LN swelling Skin: No rash / no pallor Objective Vital Signs Date Time Temp Pulse Resp B/P (MAP) Pulse Ox O2 Delivery O2 Flow Rate FiO2 05/30/17 15:18 36.7 92 16 122/77 (92) 96 Room Air 05/30/17 08:00 Room Air 05/30/17 07:45 96 Room Air 05/30/17 07:31 36.8 83 16 124/82 (96) 96 Room Air 05/30/17 00:16 37.5 79 16 137/81 (99) 92 Room Air 05/29/17 23:35 Room Air 05/29/17 19:31 36.5 92 20 119/78 (92) 94 Room Air Physical Exam Comments: Physical examination General patient appears to be comfortable, not in acute distress HEENT: Atraumatic , normocephalic /no jaundice /no pallor /anicteric /no dry mucous membrane /normal external ear inspection Neck: Supple /no swelling /central trach Heart: S1/S2 normal/regular rate and rhythm/no gallop /no rub /no murmur Lungs: Clear to auscultation bilaterally/normal chest with expansion/no rhonchi/ no rales/no wheezing/no use of accessory muscles of respiration Abdomen: Soft/nontender/no guarding/no rebound/no organomegaly/no pulsatile mass Musculoskeletal: No swelling/no edema/no tenderness/normal range of motion Neuro exam: Awake alert oriented 3/cranial nerves II through XII appear to be intact/sensation intact/moves all extremities/no abnormal movements Psychiatric evaluation: No depressed mood/normal affect Skin: No rash on exposed skin area/no erythema Extremity: Normal pulse/no pitting edema/no clubbing or cyanosis Endocrine/lymphatic: No obvious lymphadenopathy /no lymphedema Laboratory Results Last 24 Hours Test 05/29/17 18:43 05/30/17 06:24 Troponin I 0.050 ng/ml White Blood Count 6.96 K/uL Red Blood Count 3.91 M/uL Hemoglobin 11.7 g/dL Hematocrit 35.1 % Mean Corpuscular Volume 89.8 fL Mean Corpuscular Hemoglobin 29.9 pg Mean Corpuscular Hemoglobin Concent 33.3 g/dl Platelet Count 237 K/uL Mean Platelet Volume 9.1 fL Neutrophils (%) (Auto) 53.8 % Lymphocytes (%) (Auto) 26.6 % Monocytes (%) (Auto) 14.2 % Eosinophils (%) (Auto) 3.6 % Basophils (%) (Auto) 0.7 % Neutrophils # (Auto) 3.74 K/uL Lymphocytes # (Auto) 1.85 K/uL Monocytes # (Auto) 0.99 K/uL Eosinophils # (Auto) 0.25 K/uL Basophils # (Auto) 0.05 K/uL RDW Standard Deviation 45.5 fL RDW Coefficient of Variation 13.8 % Immature Granulocyte % (Auto) 1.1 % Immature Granulocyte # (Auto) 0.08 K/uL Sodium Level 138 mmol/L Potassium Level 3.3 mmol/L Chloride Level 101 mmol/L Carbon Dioxide Level 29 mmol/L Anion Gap 8.0 mmol/L Blood Urea Nitrogen 9 mg/dl Creatinine 1.23 mg/dl Est Creatinine Clear Calc Drug Dose 80.4 ml/min Estimated GFR () 70.0 Estimated GFR (Non- 60.4 BUN/Creatinine Ratio 7.6 Random Glucose 86 mg/dl Calcium Level 8.9 mg/dl Magnesium Level 2.1 mg/dl Total Bilirubin 0.5 mg/dl Aspartate Amino Transf (AST/SGOT) 29 U/L Alanine Aminotransferase (ALT/SGPT) 28 U/L Alkaline Phosphatase 119 U/L Total Protein 6.9 gm/dl Albumin 2.7 gm/dl Globulin 4.2 gm/dl Albumin/Globulin Ratio 0.6 Assessment and Plan 66-year-old man with history of high blood pressure, recent diagnosis of non- Hodgkin's lymphoma, obstructive lymphadenopathy status post ureteral stent bilaterally followed by removal of right ureteral stent and exchange of left ureteral stent 2 weeks ago. Presented to the emergency room with left flank pain and fever. Assessment Complicated UTI present on admission Left pyelonephritis in the setting of retained ureteral stent Left stent migration and possible partial malfunction Gram-positive bacilli bacteremia Recent diagnosis of non-Hodgkin lymphoma, awaiting placement of port access Hypertension dyslipidemia border line positive troponin, likely demand ischemia Plan: Discussed the case with Dr. Brewster, regarding changing his stent on , for fever of the bacteria inhibiting the stents biofilm Reviewed results of urine culture, blood cultures Blood cultures 2 out of 2 grew gram-positive bacilli, results were sent to [facility], ordered repeat blood cultures today, improved significantly on vancomycin, recent blood cultures May 29 are yet negative thus far Urine culture grew diphtheroid, I called microbiology lab and ask them to send urine diphtheroid also to [facility] for sensitivity no chest pain or SOB, will trend troponin Lactobacillus for C. difficile prevention Continue home medications. Hold lisinopril for now Continue metoprolol. heparin for DVT prophylaxis Continued [facility] stay due to: multiple IV medications needed Discharge planning: home
[2017-05-30] MEDS: ENOXAPARIN 40 MG/0.4 ML SYR SC SCH (21:00)
[2017-05-30] MEDS: ALLOPURINOL 300 MG TAB PO SCH (21:30)
[2017-05-30] MEDS: AMLODIPINE BESYLATE 5 MG TAB PO SCH (21:30)
[2017-05-30] MEDS: SIMVASTATIN 40 MG TAB PO SCH (21:30)
--- NOTE | 2017-05-30 21:38 | Infectious Disease Progress Nt ---
Progress Note Date of Service May 30, 2017. Subjective Pt evaluation today including: conversation w/ patient, physical exam, chart review, lab review, review of studies, conversation w/ engineering consultant, review of inpatient medication list Offers no new complaints today. Abdominal pain better. No fever. Tolerating antibiotic without apparent difficulty. All Other Systems: Reviewed and Negative Medications Current Inpatient Medications Medications (Trade) Dose Ordered Sig/Khari Route Start Time Stop Time Status Last Admin Dose Admin Morphine Sulfate (MoRPHine SULFATE INJ) 1 mg Q4H PRN IV 05/23/17 17:00 06/06/17 16:59 Albuterol (Ventolin Hfa Inhaler) 2 puffs Q6H PRN INH 05/23/17 13:45 06/22/17 13:44 Allopurinol (Zyloprim Tab) 300 mg QPM PO 05/23/17 21:00 06/22/17 20:59 05/30/17 21:30 300 MG Amlodipine Besylate (Norvasc Tab) 5 mg HS PO 05/23/17 21:00 06/22/17 20:59 05/30/17 21:30 5 MG Doxepin HCl (Sinequan Cap) 10 mg DAILY PRN PO 05/23/17 13:45 06/22/17 13:44 Montelukast Sodium (Singulair Tab) 10 mg DAILY PRN PO 05/23/17 13:45 06/22/17 13:44 Oxycodone/ Acetaminophen (Percocet 5-325mg Tab) 1 tab QID PRN PO 05/23/17 13:45 06/06/17 13:44 05/25/17 23:31 1 TAB Simvastatin (Zocor Tab) 40 mg HS PO 05/23/17 21:00 06/22/17 20:59 05/30/17 21:30 40 MG Tramadol HCl (Ultram Tab) 50 mg Q8H PRN PO 05/23/17 13:45 06/22/17 13:44 05/24/17 16:30 50 MG Enoxaparin Sodium (Lovenox Inj) 40 mg Q24H SC 05/23/17 21:00 06/22/17 20:59 Acetaminophen (Tylenol Tab) 650 mg Q4H PRN PO 05/23/17 13:45 06/22/17 13:44 05/23/17 19:16 650 MG Al Hydrox/Mg Hydrox/Simethicone (Maalox Max Susp) 15 ml Q4H PRN PO 05/23/17 13:45 06/22/17 13:44 Magnesium Hydroxide (Milk Of Magnesia Susp) 30 ml Q12H PRN PO 05/23/17 13:45 06/22/17 13:44 05/29/17 12:58 30 ML Zolpidem Tartrate (Ambien Tab) 5 mg HSZ PRN PO 05/23/17 13:45 06/22/17 13:44 Ondansetron HCl (Zofran Inj) 4 mg Q6H PRN IV 05/23/17 13:45 06/22/17 13:44 Polyethylene (Miralax Powder Packet) 17 gm DAILY PRN PO 05/23/17 13:45 06/22/17 13:44 05/30/17 08:12 17 GM Miscellaneous Information (Consult) 1 ea UD PRN N/A 05/23/17 13:45 06/22/17 13:44 Lactobacillus Acidophilus (Lactinex Granules Pack) 1 gm TIDM PO 05/23/17 17:00 06/22/17 17:59 05/30/17 16:38 1 GM Metoprolol Tartrate (Lopressor Tab) 12.5 mg BID PO 05/23/17 15:44 06/22/17 15:43 05/30/17 21:29 12.5 MG Cefepime HCl 1000 mg/Syringe 11 ml @ 5.5 mls/min Q8H IV 05/23/17 22:00 06/02/17 21:59 05/30/17 21:33 5.5 MLS/MIN Hydromorphone HCl (Dilaudid Inj) 1 mg Q4H PRN IV 05/24/17 00:00 06/07/17 00:00 Vancomycin HCl 1500 mg/Sodium Chloride 530 ml @ 200 mls/hr Q16H IV 05/24/17 10:00 06/02/17 15:59 05/30/17 11:05 200 MLS/HR Objective Vital Signs Date Time Temp Pulse Resp B/P (MAP) Pulse Ox O2 Delivery O2 Flow Rate FiO2 05/30/17 21:27 98 157/84 (108) 05/30/17 19:35 37.1 86 16 143/81 (101) 96 Room Air 05/30/17 16:00 96 Room Air 05/30/17 15:18 36.7 92 16 122/77 (92) 96 Room Air 05/30/17 08:00 Room Air 05/30/17 07:45 96 Room Air 05/30/17 07:31 36.8 83 16 124/82 (96) 96 Room Air 05/30/17 00:16 37.5 79 16 137/81 (99) 92 Room Air 05/29/17 23:35 Room Air Physical Exam General Appearance: WD/WN, no apparent distress Eyes: normal inspection, EOMI, sclerae normal ENT: normal ENT inspection, hearing grossly normal, pharynx normal Neck: supple, no adenopathy, thyroid normal, trachea midline Respiratory/Chest: chest non-tender, lungs clear, normal breath sounds, no respiratory distress Cardiovascular: regular rate, rhythm, no gallop, no murmur Abdomen: normal bowel sounds, non tender, soft, no organomegaly, + pertinent finding (Mild left CVAT) Extremities: non-tender, no calf tenderness, normal capillary refill Neurologic/Psychiatric: alert, normal mood/affect, oriented x 3 Skin: normal color, warm/dry, no rash Lymphatic: no adenopathy Laboratory Results Last 24 Hours Test 05/30/17 06:24 White Blood Count 6.96 K/uL Red Blood Count 3.91 M/uL Hemoglobin 11.7 g/dL Hematocrit 35.1 % Mean Corpuscular Volume 89.8 fL Mean Corpuscular Hemoglobin 29.9 pg Mean Corpuscular Hemoglobin Concent 33.3 g/dl Platelet Count 237 K/uL Mean Platelet Volume 9.1 fL Neutrophils (%) (Auto) 53.8 % Lymphocytes (%) (Auto) 26.6 % Monocytes (%) (Auto) 14.2 % Eosinophils (%) (Auto) 3.6 % Basophils (%) (Auto) 0.7 % Neutrophils # (Auto) 3.74 K/uL Lymphocytes # (Auto) 1.85 K/uL Monocytes # (Auto) 0.99 K/uL Eosinophils # (Auto) 0.25 K/uL Basophils # (Auto) 0.05 K/uL RDW Standard Deviation 45.5 fL RDW Coefficient of Variation 13.8 % Immature Granulocyte % (Auto) 1.1 % Immature Granulocyte # (Auto) 0.08 K/uL Sodium Level 138 mmol/L Potassium Level 3.3 mmol/L Chloride Level 101 mmol/L Carbon Dioxide Level 29 mmol/L Anion Gap 8.0 mmol/L Blood Urea Nitrogen 9 mg/dl Creatinine 1.23 mg/dl Est Creatinine Clear Calc Drug Dose 80.4 ml/min Estimated GFR () 70.0 Estimated GFR (Non- 60.4 BUN/Creatinine Ratio 7.6 Random Glucose 86 mg/dl Calcium Level 8.9 mg/dl Magnesium Level 2.1 mg/dl Total Bilirubin 0.5 mg/dl Aspartate Amino Transf (AST/SGOT) 29 U/L Alanine Aminotransferase (ALT/SGPT) 28 U/L Alkaline Phosphatase 119 U/L Total Protein 6.9 gm/dl Albumin 2.7 gm/dl Globulin 4.2 gm/dl Albumin/Globulin Ratio 0.6 Assessment and Plan 66-year-old male with non-Hodgkin's lymphoma with obstructive uropathy from lymphadenopathy in status post ureteral stenting now with Gram-positive bacillary sepsis with probable pyelonephritis. Given antibiotic allergies, vancomycin appropriate pending further identification. Likely will require 10- 14 days of IV antibiotic therapy depending on clinical response. Await final follow-up blood cultures. Will follow.
[2017-05-31] MEDS ORDERED: VANCOMYCIN TROUGH ONE (01:30)
[2017-05-31] MEDS: VANCOMYCIN IV 1,500 MG in SODIUM CHLORIDE 0.9% 500ML 500 ML IV SCH ×2 (02:07→18:10)
[2017-05-31] MEDS: CEFEPIME IV 1,000 MG in SYRINGE 0 ML IV SCH ×3 (05:14→22:03)
[2017-05-31 06:01] LABS: BASO % 0.8 %; BASO ABS # 0.05 K/uL (0-0.2); EOS ABS # 0.24 K/uL (0-0.5); HEMATOCRIT 32.2 % (42-52); HEMOGLOBIN 10.6 g/dL (14.0-18.0); IG# 0.09 K/uL (0.00-0.02); LYMPH % 22.7 %; LYMPH ABS # 1.38 K/uL (1.2-3.4); MEAN CELL VOLUME 89.2 fL (80-100); MEAN CORPUSCULAR HEMOGLOBIN 29.4 pg (25-34); MEAN CORPUSCULAR HGB CONC 32.9 g/dl (32-36); MEAN PLATELET VOLUME 8.8 fL (7.4-10.4); MONO % 11.2 %; MONO ABS # 0.68 K/uL (0.11-0.59); NEUT % 59.8 %; NEUT ABS # 3.63 K/uL (1.4-6.5); PLATELET COUNT 229 K/uL (130-400); RED CELL DISTRIBUTION WIDTH SD 45.7 fL (36.4-46.3); WHITE BLOOD COUNT 6.07 K/uL (4.8-10.8)
[2017-05-31 06:12] VITALS: BP 121/79; PULSE 68; TEMP 37.1; O2SAT 96
[2017-05-31 06:36] LABS: CALCIUM 8.5 mg/dl (8.5-10.1); CREATININE 1.12 mg/dl (0.60-1.40); POTASSIUM 3.4 mmol/L (3.5-5.1)
--- NOTE | 2017-05-31 07:36 | Progress Note ---
Subjective Date of Service: May 31, 2017. Subjective pt feels better awaiting ureteral stent change tomorrow, has no other issues at this time has no fever Problem List Medical Problems: (1) Acute renal failure Status: Acute (2) Fever Status: Acute (3) Infection associated with indwelling ureteral stent Status: Acute (4) Left ureteral calculus Status: Acute (5) Left-sided back pain Status: Acute (6) Pyelonephritis Status: Acute (7) Pyelonephritis Status: Acute Review of Systems Constitutional: + weakness, + fatigue, No fever, No chills Respiratory: No cough, No shortness of breath Cardiac: No chest pain, No edema Abdomen: No pain, No nausea, No vomiting, No diarrhea Musculoskeletal: No joint pain, No muscle pain Psychiatric: No depression symptoms, No anhedonism, No anxiety Objective Vital Signs Date Time Temp Pulse Resp B/P (MAP) Pulse Ox O2 Delivery O2 Flow Rate FiO2 05/31/17 06:12 37.1 68 18 121/79 (93) 96 Room Air 05/31/17 00:00 Room Air 05/30/17 23:12 37.4 77 16 130/83 (99) 97 Room Air 05/30/17 21:27 98 157/84 (108) 05/30/17 19:35 37.1 86 16 143/81 (101) 96 Room Air 05/30/17 16:00 96 Room Air 05/30/17 15:18 36.7 92 16 122/77 (92) 96 Room Air 05/30/17 08:00 Room Air 05/30/17 07:45 96 Room Air Physical Exam General Appearance: WD/WN, + mild distress Eyes: normal inspection, sclerae normal Neck: supple, no JVD Respiratory/Chest: chest non-tender, lungs clear, normal breath sounds Cardiovascular: regular rate, rhythm, no murmur Abdomen: normal bowel sounds, non tender, soft Extremities: no pedal edema, no calf tenderness Neurologic/Psychiatric: alert, oriented x 3 Laboratory Results Last 24 Hours Test 05/31/17 01:51 05/31/17 05:39 05/31/17 07:14 Vancomycin Level Trough 18.8 mcg/ml White Blood Count 6.07 K/uL Red Blood Count 3.61 M/uL Hemoglobin 10.6 g/dL Hematocrit 32.2 % Mean Corpuscular Volume 89.2 fL Mean Corpuscular Hemoglobin 29.4 pg Mean Corpuscular Hemoglobin Concent 32.9 g/dl Platelet Count 229 K/uL Mean Platelet Volume 8.8 fL Neutrophils (%) (Auto) 59.8 % Lymphocytes (%) (Auto) 22.7 % Monocytes (%) (Auto) 11.2 % Eosinophils (%) (Auto) 4.0 % Basophils (%) (Auto) 0.8 % Neutrophils # (Auto) 3.63 K/uL Lymphocytes # (Auto) 1.38 K/uL Monocytes # (Auto) 0.68 K/uL Eosinophils # (Auto) 0.24 K/uL Basophils # (Auto) 0.05 K/uL RDW Standard Deviation 45.7 fL RDW Coefficient of Variation 14.0 % Immature Granulocyte % (Auto) 1.5 % Immature Granulocyte # (Auto) 0.09 K/uL Sodium Level 138 mmol/L Potassium Level 3.4 mmol/L Chloride Level 103 mmol/L Carbon Dioxide Level 28 mmol/L Anion Gap 7.0 mmol/L Blood Urea Nitrogen 10 mg/dl Creatinine 1.12 mg/dl Est Creatinine Clear Calc Drug Dose 88.3 ml/min Estimated GFR () 78.4 Estimated GFR (Non- 67.6 BUN/Creatinine Ratio 9.3 Random Glucose 89 mg/dl Calcium Level 8.5 mg/dl Magnesium Level 2.1 mg/dl Bedside Glucose 105 mg/dl Assessment and Plan 66-year-old man with history of high blood pressure, recent diagnosis of non- Hodgkin's lymphoma, obstructive lymphadenopathy status post ureteral stent bilaterally followed by removal of right ureteral stent and exchange of left ureteral stent 2 weeks ago. Presented to the emergency room with left flank pain and fever. Complicated UTI present on admission Left pyelonephritis in the setting of retained ureteral stent Left stent migration and possible partial malfunction, changing his stent on Blood cultures 2 out of 2 grew gram-positive bacilli, results were sent to [facility], ordered repeat blood cultures 05/30, clinically improved significantly on vancomycin, recent blood cultures May 29 are yet negative Recent diagnosis of non-Hodgkin lymphoma, awaiting placement of port access Hypertension, Hold lisinopril, Continue metoprolol. border line positive troponin, likely demand ischemia Lactobacillus for C. difficile prevention heparin for DVT prophylaxis Continued [facility] stay due to: multiple IV medications needed Discharge planning: home
[2017-05-31] MEDS: METOPROLOL TARTRATE 25 MG TAB PO SCH ×2 (07:45→21:14)
[2017-05-31] MEDS: LACTOBACILLUS ACIDOPHILUS 1 GM PACK PO SCH ×3 (07:45→17:14)
--- NOTE | 2017-05-31 08:34 | Pharmacy Progress Note ---
Pharmacy Abx Dose Short Note Date of Service May 31, 2017. Assessment & Plan Assessment 66 year old male receiving Vancomycin and cefepime for treatment of pyelonephritis/bacteremia with Gram positive bacilli. Day # 9 of antimicrobial therapy. * Blood cultures from 05/29 have NGTD * ID following Plan Vancomycin * Trough level of 18.8 mcg/mL is therapeutic. * Continue dose of 1500m g IV every 16 hours * Goal trough level for bacteremia : 15 to 20 mcg/mL * No further levels ordered at this time. Cefepime * Continue 1 gm IV q 8 hours Pharmacy will continue to follow and will adjust dose/frequency as necessary. Thank you.
--- NOTE | 2017-05-31 09:45 | Progress Note ---
Subjective Date of Service: May 31, 2017. (Stephania Samuel CRNP) Subjective Pt evaluation today including: conversation w/ patient, chart review, lab review Voiding: no voiding problems Pt denies pain today. Reports some formed BMs this morning. Blood cultures still pending. (Stephania Samuel CRNP) Problem List Medical Problems: (1) Acute renal failure Status: Acute (2) Fever Status: Acute (3) Infection associated with indwelling ureteral stent Status: Acute (4) Left ureteral calculus Status: Acute (5) Left-sided back pain Status: Acute (6) Pyelonephritis Status: Acute (7) Pyelonephritis Status: Acute (Stephania Samuel CRNP) Review of Systems Constitutional: No fever, No chills Respiratory: No shortness of breath Cardiac: No chest pain Abdomen: No pain, No nausea, No vomiting Male : No dysuria, No hematuria Heme: No abnormal bleeding/bruising (Stephania Samuel CRNP) Objective Vital Signs Date Time Temp Pulse Resp B/P (MAP) Pulse Ox O2 Delivery O2 Flow Rate FiO2 05/31/17 08:00 Room Air 05/31/17 06:12 37.1 68 18 121/79 (93) 96 Room Air 05/31/17 00:00 Room Air 05/30/17 23:12 37.4 77 16 130/83 (99) 97 Room Air 05/30/17 21:27 98 157/84 (108) 05/30/17 19:35 37.1 86 16 143/81 (101) 96 Room Air 05/30/17 16:00 96 Room Air 05/30/17 15:18 36.7 92 16 122/77 (92) 96 Room Air (Stephania Samuel CRNP) Physical Exam General Appearance: no apparent distress Eyes: normal inspection ENT: hearing grossly normal Neck: no JVD Respiratory/Chest: no respiratory distress, no accessory muscle use Cardiovascular: no JVD Extremities: normal inspection Neurologic/Psychiatric: alert, normal mood/affect, oriented x 3 Skin: normal color (Stephania Samuel CRNP) Laboratory Results Last 24 Hours Test 05/31/17 01:51 05/31/17 05:39 05/31/17 07:14 Vancomycin Level Trough 18.8 mcg/ml White Blood Count 6.07 K/uL Red Blood Count 3.61 M/uL Hemoglobin 10.6 g/dL Hematocrit 32.2 % Mean Corpuscular Volume 89.2 fL Mean Corpuscular Hemoglobin 29.4 pg Mean Corpuscular Hemoglobin Concent 32.9 g/dl Platelet Count 229 K/uL Mean Platelet Volume 8.8 fL Neutrophils (%) (Auto) 59.8 % Lymphocytes (%) (Auto) 22.7 % Monocytes (%) (Auto) 11.2 % Eosinophils (%) (Auto) 4.0 % Basophils (%) (Auto) 0.8 % Neutrophils # (Auto) 3.63 K/uL Lymphocytes # (Auto) 1.38 K/uL Monocytes # (Auto) 0.68 K/uL Eosinophils # (Auto) 0.24 K/uL Basophils # (Auto) 0.05 K/uL RDW Standard Deviation 45.7 fL RDW Coefficient of Variation 14.0 % Immature Granulocyte % (Auto) 1.5 % Immature Granulocyte # (Auto) 0.09 K/uL Sodium Level 138 mmol/L Potassium Level 3.4 mmol/L Chloride Level 103 mmol/L Carbon Dioxide Level 28 mmol/L Anion Gap 7.0 mmol/L Blood Urea Nitrogen 10 mg/dl Creatinine 1.12 mg/dl Est Creatinine Clear Calc Drug Dose 88.3 ml/min Estimated GFR () 78.4 Estimated GFR (Non- 67.6 BUN/Creatinine Ratio 9.3 Random Glucose 89 mg/dl Calcium Level 8.5 mg/dl Magnesium Level 2.1 mg/dl Bedside Glucose 105 mg/dl (Stephania Samuel CRNP) Assessment and Plan A/P: Left flank pain, left hydronephrosis secondary to lymphoma, ARF, pyelonephritis AFVSS. Continue IV abx per ID. ARF has improved. Plan for left stent exchange tomorrow in the setting of sepsis and immunocompromised pt with lymphoma. Dr. Rhoades will perform the procedure. Risks and benefits of the procedure discussed with the pt. All questions answered. Pt agrees to the procedure at this time. Will continue to follow along with primary service. Continued [facility] stay due to: multiple IV medications needed Discharge planning: home (Stephania Samuel CRNP)
--- NOTE | 2017-05-31 15:13 | Infectious Disease Progress Nt ---
Progress Note Date of Service May 31, 2017. Subjective Pt evaluation today including: conversation w/ patient, physical exam, chart review, lab review, review of studies, conversation w/ executive talent acquisition consultant, review of inpatient medication list No new complaints today. Abdominal pain better. Remains afebrile. Plans for change of stent tomorrow noted. Follow-up blood cultures remain no growth to date. All Other Systems: Reviewed and Negative Medications Current Inpatient Medications Medications (Trade) Dose Ordered Sig/Khari Route Start Time Stop Time Status Last Admin Dose Admin Morphine Sulfate (MoRPHine SULFATE INJ) 1 mg Q4H PRN IV 05/23/17 17:00 06/06/17 16:59 Albuterol (Ventolin Hfa Inhaler) 2 puffs Q6H PRN INH 05/23/17 13:45 06/22/17 13:44 Allopurinol (Zyloprim Tab) 300 mg QPM PO 05/23/17 21:00 06/22/17 20:59 05/30/17 21:30 300 MG Amlodipine Besylate (Norvasc Tab) 5 mg HS PO 05/23/17 21:00 06/22/17 20:59 05/30/17 21:30 5 MG Doxepin HCl (Sinequan Cap) 10 mg DAILY PRN PO 05/23/17 13:45 06/22/17 13:44 Montelukast Sodium (Singulair Tab) 10 mg DAILY PRN PO 05/23/17 13:45 06/22/17 13:44 Oxycodone/ Acetaminophen (Percocet 5-325mg Tab) 1 tab QID PRN PO 05/23/17 13:45 06/06/17 13:44 05/25/17 23:31 1 TAB Simvastatin (Zocor Tab) 40 mg HS PO 05/23/17 21:00 06/22/17 20:59 05/30/17 21:30 40 MG Tramadol HCl (Ultram Tab) 50 mg Q8H PRN PO 05/23/17 13:45 06/22/17 13:44 05/24/17 16:30 50 MG Enoxaparin Sodium (Lovenox Inj) 40 mg Q24H SC 05/23/17 21:00 06/22/17 20:59 Acetaminophen (Tylenol Tab) 650 mg Q4H PRN PO 05/23/17 13:45 06/22/17 13:44 05/23/17 19:16 650 MG Al Hydrox/Mg Hydrox/Simethicone (Maalox Max Susp) 15 ml Q4H PRN PO 05/23/17 13:45 06/22/17 13:44 Magnesium Hydroxide (Milk Of Magnesia Susp) 30 ml Q12H PRN PO 05/23/17 13:45 06/22/17 13:44 05/29/17 12:58 30 ML Zolpidem Tartrate (Ambien Tab) 5 mg HSZ PRN PO 05/23/17 13:45 06/22/17 13:44 Ondansetron HCl (Zofran Inj) 4 mg Q6H PRN IV 05/23/17 13:45 06/22/17 13:44 Polyethylene (Miralax Powder Packet) 17 gm DAILY PRN PO 05/23/17 13:45 06/22/17 13:44 05/30/17 08:12 17 GM Miscellaneous Information (Consult) 1 ea UD PRN N/A 05/23/17 13:45 06/22/17 13:44 Lactobacillus Acidophilus (Lactinex Granules Pack) 1 gm TIDM PO 05/23/17 17:00 06/22/17 17:59 05/31/17 11:54 1 GM Metoprolol Tartrate (Lopressor Tab) 12.5 mg BID PO 05/23/17 15:44 06/22/17 15:43 05/31/17 07:45 12.5 MG Cefepime HCl 1000 mg/Syringe 11 ml @ 5.5 mls/min Q8H IV 05/23/17 22:00 06/02/17 21:59 05/31/17 13:18 5.5 MLS/MIN Hydromorphone HCl (Dilaudid Inj) 1 mg Q4H PRN IV 05/24/17 00:00 06/07/17 00:00 Vancomycin HCl 1500 mg/Sodium Chloride 530 ml @ 200 mls/hr Q16H IV 05/24/17 10:00 06/02/17 15:59 05/31/17 02:07 200 MLS/HR Objective Vital Signs Date Time Temp Pulse Resp B/P (MAP) Pulse Ox O2 Delivery O2 Flow Rate FiO2 05/31/17 12:00 Room Air 05/31/17 08:00 Room Air 05/31/17 06:12 37.1 68 18 121/79 (93) 96 Room Air 05/31/17 00:00 Room Air 05/30/17 23:12 37.4 77 16 130/83 (99) 97 Room Air 05/30/17 21:27 98 157/84 (108) 05/30/17 19:35 37.1 86 16 143/81 (101) 96 Room Air 05/30/17 16:00 96 Room Air 05/30/17 15:18 36.7 92 16 122/77 (92) 96 Room Air Physical Exam General Appearance: WD/WN, no apparent distress Eyes: normal inspection, EOMI, sclerae normal ENT: normal ENT inspection, pharynx normal Neck: supple, no adenopathy, thyroid normal, trachea midline Respiratory/Chest: chest non-tender, lungs clear, normal breath sounds, no respiratory distress Cardiovascular: regular rate, rhythm, no gallop, no murmur Abdomen: normal bowel sounds, non tender, soft, no organomegaly Extremities: non-tender, no calf tenderness, normal capillary refill Neurologic/Psychiatric: alert, normal mood/affect, oriented x 3 Skin: normal color, warm/dry, no rash Lymphatic: no adenopathy Laboratory Results RUN DATE: 05/31/17 [facility] LAB PAGE 1 RUN TIME: 703 Specimen Inquiry PATIENT: BALDEV SON [facility] #: [id number] LOC: [facility] # : [id number] AGE/SX: 66/M ROOM: [facility] REG : 05/23/[address]: Eva Mccartney : 1950 BED: 1 DIS : STATUS: ADM IN TLOC: SPEC #: [id number] MEI: 05/29/17 STATUS: RES REQ #: [id number] RECD: 05/29/[address]: Eva Mccartney MD SOURCE: BLOOD ENTR: 05/29/17-[address] [facility] [address]: Guero Henley MD SPDESC: Stephania Samuel , Foster Myles DO Henninger, Jason, D.O. Saborio, George A. M.D. ORDERED: BLOOD CULTURE Procedure Result Verified Site BLD CULT Preliminary 05/31/17 NO GROWTH TO DATE. Last 24 Hours Test 05/31/17 01:51 05/31/17 05:39 05/31/17 07:14 Vancomycin Level Trough 18.8 mcg/ml White Blood Count 6.07 K/uL Red Blood Count 3.61 M/uL Hemoglobin 10.6 g/dL Hematocrit 32.2 % Mean Corpuscular Volume 89.2 fL Mean Corpuscular Hemoglobin 29.4 pg Mean Corpuscular Hemoglobin Concent 32.9 g/dl Platelet Count 229 K/uL Mean Platelet Volume 8.8 fL Neutrophils (%) (Auto) 59.8 % Lymphocytes (%) (Auto) 22.7 % Monocytes (%) (Auto) 11.2 % Eosinophils (%) (Auto) 4.0 % Basophils (%) (Auto) 0.8 % Neutrophils # (Auto) 3.63 K/uL Lymphocytes # (Auto) 1.38 K/uL Monocytes # (Auto) 0.68 K/uL Eosinophils # (Auto) 0.24 K/uL Basophils # (Auto) 0.05 K/uL RDW Standard Deviation 45.7 fL RDW Coefficient of Variation 14.0 % Immature Granulocyte % (Auto) 1.5 % Immature Granulocyte # (Auto) 0.09 K/uL Sodium Level 138 mmol/L Potassium Level 3.4 mmol/L Chloride Level 103 mmol/L Carbon Dioxide Level 28 mmol/L Anion Gap 7.0 mmol/L Blood Urea Nitrogen 10 mg/dl Creatinine 1.12 mg/dl Est Creatinine Clear Calc Drug Dose 88.3 ml/min Estimated GFR () 78.4 Estimated GFR (Non- 67.6 BUN/Creatinine Ratio 9.3 Random Glucose 89 mg/dl Calcium Level 8.5 mg/dl Magnesium Level 2.1 mg/dl Bedside Glucose 105 mg/dl Assessment and Plan 66-year-old male with non-Hodgkin's lymphoma with obstructive uropathy from lymphadenopathy in status post ureteral stenting now with Gram-positive bacillary sepsis with probable pyelonephritis. Appears to be responding appropriately to vancomycin, would continue and will likely need in the range of 14 days of IV antibiotics. For stent replacement tomorrow. Will follow.
[2017-05-31 15:19] VITALS: BP 117/76; PULSE 76; TEMP 37; O2SAT 96
[2017-05-31 16:00] VITALS: O2SAT 96
--- NOTE | 2017-05-31 16:04 | Anesthesiology Progress Note ---
Pre-OP Anesthesia Assessment Date of Note May 31, 2017. Review patient information reviewed, chart reviewed, labs reviewed, acceptable for surgery Notes Pt scheduled for cystoscopy with left ureteral stent exchange. PMH includes lymphoma, HTN, hyperlipidemia. Pt had cysto/stent placement under MAC recently without problems. He is acceptable candidate for this procedure. MAC with GA if needed explained. Pt expressed understanding and signed informed consent.
--- NOTE | 2017-05-31 18:45 | ECHOCARDIOGRAM REPORT ---
*NOTICE TO RECEIVING DEMOCRAT AGENCY This information is strictly Confidential and protected under [place] law. [place] law prohibits you from making any further disclosure of this information unless further disclosure is expressly permitted by the written consent of the person to whom it pertains or is authorized by law. A general authorization for the release of medical or other information is not sufficient for this purpose. Hospital accepts no responsibility if the information is made available to any other person, INCLUDING THE PATIENT. Interpretation Summary * Name: BALDEV SON Study Date: 05/31/2017 06:38 AM BP: 121/79 mmHg * Patient Location: [facility]\S\N288\S\1 HR: 82 * : 1950 (M/d/yyyy) Gender: Male Height: 75 in * Age: 66 yrs Ethnicity: CA Weight: 257 lb * Ordering Physician: Eva Mccartney * Referring Physician: Shilo Sandoval * Performed By: Nereida Gillespie RDCS * * Reason For Study: Endocarditis * BSA: 2.4 m2 * -- Conclusions -- * 1. Normal left ventricular size and systolic function. EF 55-60%. No regional wall motion abnormalities. Mild concentric left ventricular hypertrophy. Type 1 diastolic dysfunction. * 2. There is mild mitral regurgitation. * 3. Normal estimated right ventricular systolic pressure. * 4. No prior study available for comparison. Procedure Details * A complete two-dimensional transthoracic echocardiogram was performed (2D, M-mode, Doppler and color flow Doppler). Left Ventricle * Normal left ventricular size and systolic function. EF 55-60%. No regional wall motion abnormalities. Mild concentric left ventricular hypertrophy. Type 1 diastolic dysfunction. Right Ventricle * The right ventricle is normal in size and function. * The right ventricular systolic function is normal as assessed by tricuspid annular plane systolic excursion (TAPSE) (normal >1.5 cm). Atria * The left atrial size is normal. * Right atrial size is normal. * There is no evidence of atrial septal defect, but resolution does not allow assessment for a patent foramen ovale. Mitral Valve * The mitral valve is grossly normal. * There is no mitral valve stenosis. * There is mild mitral regurgitation. Tricuspid Valve * The tricuspid valve is not well visualized, but is grossly normal. * There is no tricuspid stenosis. * There is trace tricuspid regurgitation. Aortic Valve * The aortic valve is trileaflet. * No hemodynamically significant valvular aortic stenosis. * Trace aortic regurgitation. Pulmonic Valve * The pulmonary valve is inadequately visualized, but the Doppler data is adequate for interpretation. * There is no pulmonic valvular stenosis. * There is no significant pulmonary regurgitation. Great Vessels * The aortic root is normal size. * Aortic arch of normal dimension. * Normal pulmonary venous flow pattern. Pericardium/Pleural * Trace pericardial effusion. Great Vessels * Normal inferior vena cava size and collapsability with sniff indicates a normal right atrial pressure of 3 mmHg MMode 2D Measurements and Calculations IVSd 1.2 cm IVSs 1.5 cm LVIDd 4.6 cm LVIDs 2.8 cm LVPWd 1.3 cm LVPWs 1.8 cm IVS/LVPW 0.96 FS 38.1 % EDV(Teich) 96.3 ml ESV(Teich) 30.5 ml EF(Teich) 68.3 % EDV(cubed) 96.0 ml ESV(cubed) 22.8 ml EF(cubed) 76.2 % % IVS thick 21.9 % % LVPW thick 38.3 % LV mass(C)d 219.9 grams LV mass(C)dI 90.1 grams/m\S\2 LV mass(C)s 173.7 grams LV mass(C)sI 71.1 grams/m\S\2 SV(Teich) 65.8 ml SI(Teich) 27.0 ml/m\S\2 SV(cubed) 73.2 ml SI(cubed) 30.0 ml/m\S\2 Ao root diam 3.9 cm Ao root area 12.1 cm\S\2 ACS 1.9 cm LA dimension 4.1 cm LA/Ao 1.0 LVAd ap4 33.6 cm\S\2 LVLd ap4 9.1 cm EDV(MOD-sp4) 107.5 ml EDV(sp4-el) 105.6 ml LVAs ap4 19.9 cm\S\2 LVLs ap4 7.5 cm ESV(MOD-sp4) 45.9 ml ESV(sp4-el) 44.7 ml EF(MOD-sp4) 57.3 % EF(sp4-el) 57.6 % LVAd ap2 38.0 cm\S\2 LVLd ap2 10.1 cm EDV(MOD-sp2) 121.1 ml EDV(sp2-el) 122.0 ml LVAs ap2 22.7 cm\S\2 LVLs ap2 9.0 cm ESV(MOD-sp2) 53.2 ml ESV(sp2-el) 48.7 ml EF(MOD-sp2) 56.1 % EF(sp2-el) 60.0 % LVLd %diff 9.8 % EDV(MOD-bp) 120.9 ml LVLs %diff 16.0 % ESV(MOD-bp) 52.6 ml EF(MOD-bp) 56.5 % SV(MOD-sp4) 61.6 ml SI(MOD-sp4) 25.2 ml/m\S\2 SV(MOD-sp2) 67.9 ml SI(MOD-sp2) 27.8 ml/m\S\2 SV(MOD-bp) 68.3 ml SI(MOD-bp) 28.0 ml/m\S\2 SV(sp4-el) 60.8 ml SI(sp4-el) 24.9 ml/m\S\2 SV(sp2-el) 73.3 ml SI(sp2-el) 30.0 ml/m\S\2 Doppler Measurements and Calculations MV E max ara 76.9 cm/sec MV A max ara 86.5 cm/sec MV E/A 0.89 MV dec time 0.22 sec Ao V2 max 124.3 cm/sec Ao max PG 6.2 mmHg Ao max PG (full) 1.3 mmHg AI max ara 442.0 cm/sec AI max PG 78.2 mmHg AI dec slope 177.2 cm/sec\S\2 AI P1/2t 730.4 msec LV V1 max PG 4.9 mmHg LV V1 max 110.4 cm/sec PA V2 max 88.0 cm/sec PA max PG 3.1 mmHg TR max ara 237.8 cm/sec RVSP(TR) 25.6 mmHg RAP systole 3.0 mmHg
[2017-05-31] MEDS: ENOXAPARIN 40 MG/0.4 ML SYR SC SCH (21:00)
[2017-05-31 21:13] VITALS: BP 144/69; PULSE 101
[2017-05-31] MEDS: ALLOPURINOL 300 MG TAB PO SCH (21:15)
[2017-05-31] MEDS: AMLODIPINE BESYLATE 5 MG TAB PO SCH (21:15)
[2017-05-31] MEDS: SIMVASTATIN 40 MG TAB PO SCH (21:15)
[2017-06-01] VITALS (8 sets, daily range): BP systolic 115–139; BP diastolic 67–85; PULSE 77–84; TEMP 36.5–37.1; O2SAT 91–97
[2017-06-01] MEDS: CEFEPIME IV 1,000 MG in SYRINGE 0 ML IV SCH ×2 (05:58→14:11)
[2017-06-01 06:45] LABS: HEMATOCRIT 35.5 % (42-52); HEMOGLOBIN 11.3 g/dL (14.0-18.0); MEAN CELL VOLUME 90.6 fL (80-100); MEAN CORPUSCULAR HEMOGLOBIN 28.8 pg (25-34); MEAN CORPUSCULAR HGB CONC 31.8 g/dl (32-36); PLATELET COUNT 241 K/uL (130-400); RED CELL DISTRIBUTION WIDTH CV 13.9 % (11.5-14.5); WHITE BLOOD COUNT 6.03 K/uL (4.8-10.8)
[2017-06-01 07:22] LABS: CREATININE 1.14 mg/dl (0.60-1.40)
[2017-06-01] MEDS: LACTOBACILLUS ACIDOPHILUS 1 GM PACK PO SCH ×3 (08:00→17:00)
[2017-06-01] MEDS ORDERED: ONDANSETRON INJ 2 MG/ML 2 ML VIAL IV PRN (08:30)
[2017-06-01] MEDS ORDERED: FENTANYL CITRATE INJ 50 MCG/1 ML 2 ML VIAL IV PRN (08:30)
[2017-06-01] MEDS ORDERED: ATROPINE SULFATE 0.1 MG/ML 5ML SYR IV PRN (08:30)
[2017-06-01] MEDS ORDERED: EpHEDrine SULFATE INJ 50 MG/ML AMP IV PRN (08:30)
[2017-06-01] MEDS ORDERED: LABETALOL HCL IV 5 MG/ML 20ML IV PRN (08:30)
[2017-06-01] MEDS ORDERED: MEPERIDINE HCL 25 MG/ML CARP IV PRN (08:30)
[2017-06-01] MEDS ORDERED: HYDROmorphone INJ 1 MG/ML SYR IV PRN (08:30)
--- NOTE | 2017-06-01 09:13 | Progress Note ---
Subjective Date of Service: Jun 01, 2017. Problem List Medical Problems: (1) Acute renal failure Status: Acute (2) Fever Status: Acute (3) Infection associated with indwelling ureteral stent Status: Acute (4) Left ureteral calculus Status: Acute (5) Left-sided back pain Status: Acute (6) Pyelonephritis Status: Acute (7) Pyelonephritis Status: Acute Objective Vital Signs Date Time Temp Pulse Resp B/P (MAP) Pulse Ox O2 Delivery O2 Flow Rate FiO2 06/01/17 08:40 96 Room Air 06/01/17 07:25 36.9 84 18 115/67 (83) 96 Room Air 06/01/17 07:04 37.1 84 20 126/85 (99) 96 06/01/17 00:20 Room Air 06/01/17 00:18 36.5 82 18 139/82 (101) 95 Room Air 05/31/17 21:13 101 144/69 (94) 05/31/17 16:00 96 Room Air 05/31/17 15:19 37.0 76 20 117/76 (90) 96 Room Air 05/31/17 12:00 Room Air Laboratory Results Last 24 Hours Test 06/01/17 06:13 White Blood Count 6.03 K/uL Red Blood Count 3.92 M/uL Hemoglobin 11.3 g/dL Hematocrit 35.5 % Mean Corpuscular Volume 90.6 fL Mean Corpuscular Hemoglobin 28.8 pg Mean Corpuscular Hemoglobin Concent 31.8 g/dl RDW Standard Deviation 46.0 fL RDW Coefficient of Variation 13.9 % Platelet Count 241 K/uL Mean Platelet Volume 9.0 fL Creatinine 1.14 mg/dl Est Creatinine Clear Calc Drug Dose 86.7 ml/min Estimated GFR () 76.7 Estimated GFR (Non- 66.2 Assessment and Plan 66-year-old man with history of high blood pressure, recent diagnosis of non- Hodgkin's lymphoma, obstructive lymphadenopathy status post ureteral stent bilaterally followed by removal of right ureteral stent and exchange of left ureteral stent 2 weeks ago. Presented to the emergency room with left flank pain and fever. Complicated UTI present on admission Left pyelonephritis in the setting of retained ureteral stent Left stent migration and possible partial malfunction, changing his stent on Blood cultures 2 out of 2 grew gram-positive bacilli, results were sent to [facility], ordered repeat blood cultures 05/30, clinically improved significantly on vancomycin, recent blood cultures May 29 are yet negative Recent diagnosis of non-Hodgkin lymphoma, awaiting placement of port access Hypertension, Hold lisinopril, Continue metoprolol. border line positive troponin, likely demand ischemia Lactobacillus for C. difficile prevention heparin for DVT prophylaxis Continued [facility] stay due to: multiple IV medications needed Discharge planning: home
[2017-06-01] MEDS: METOPROLOL TARTRATE 25 MG TAB PO SCH (09:32)
[2017-06-01] MEDS: VANCOMYCIN IV 1,500 MG in SODIUM CHLORIDE 0.9% 500ML 500 ML IV SCH (10:10)
--- NOTE | 2017-06-01 11:17 | Pharmacy Progress Note ---
Pharmacy Abx Dose Short Note Date of Service Jun 01, 2017. Assessment & Plan Assessment & Plan 66 year old male receiving Vancomycin and cefepime for treatment of pyelonephritis. Day # 10 of antimicrobial therapy. * Per request of Dr. Cifuentes, Vancomycin changed to a 24 hour regimen for ease of outpatient administration. * Vanc changed from 1500mg (15mg/kg) q 16 hours to 2500mg (22mg/kg) q 24 hours. * Vancomycin extended to 14 days of therapy * No level will be ordered at this time as he is expected to be discharged today or tomorrow. * Would recommend ordering a trough if outpatient treatment is extended beyond 14 days. Pharmacy will continue to follow and will adjust dose/frequency as necessary. Thank you.
[2017-06-01] MEDS ORDERED: Cysto-Conray II 17.2% 250ML BOTTLE ONE (12:56)
--- NOTE | 2017-06-01 13:26 | [facility] Operative Report ---
Operative Report Operative Date Jun 01, 2017. Pre-Operative Diagnosis Left Hydronephrosis, History of Urosepsis Post-Operative Diagnosis Left Hydronephrosis, History of Urosepsis Procedure(s) Performed Cystoscopy, Left Retrograde Pyelogram, Left Ureteral Stent Exchange Surgeon Dr. Javier Rhoades Medical Information Specialist Surgeon(s) None Estimated Blood Loss 0 mL Findings Good stent position on fluoroscopy Specimens No pathology specimens per surgeon Drains 6 Thai multilength double-J ureteral stent Anesthesia Type MAC Spinal Regional Complication(s) none Disposition no Recovery Room / PACU Indications 66-year-old male who we have seen in consultation for history of left renal obstruction from lymphoma, indwelling ureteral stent who is been treated for urosepsis. He remains on intravenous antibiotic coverage. Primary service is recommending a stent exchange to avoid persistence of a biofilm and nidus for infection. He is here today for stent exchange. Please see urology notes and consultation for further details. Description of Procedure Patient was properly identified and brought into the operative suite after identification for proper consent of the chart. Knee-high SCDs were used for DVT prophylaxis. MAC anesthesia was initiated and patient was prepped and draped in the standard fashion for this procedure. Full timeout procedure was followed. 22 Thai rigid cystoscope was passed into the bladder under direct visualization demonstrating an elevated bladder neck with mild lateral lobe hypertrophy and a normal urethra. Bladder was surveyed demonstrating mild to moderate trabeculation and a minimally encrusted loop to his double-J stent on the left-hand side. This was grasped and brought down to the level of the meatus. This was cannulated using a sensor tip wire was advanced up to the level of the left renal pelvis under fluoroscopic guidance. Open-ended ureteral catheter was advanced over this and left renal pelvis was opacified using Conray to allow for better identification of stent location. This demonstrated a lack of significant renal dilation or hydronephrosis. Sensor tip wire was advanced and a 6 Thai multilength ureteral stent was advanced with redundant coil present at the level of left renal pelvis and a full coil present within the bladder. Hydronephrotic drip was appreciated. Bladder was drained and cystoscope was removed. Anesthesia was reversed and patient was transferred to the recovery room in stable condition. Postoperative care: Patient will be readmitted to the floor for further management per their service. Outpatient follow-up with Dr. Escamilla as previously scheduled. Care is discussed with the patient's family today per the patient's request. I attest to the content of the Intraoperative Record and any orders documented therein. Any exceptions are noted below.
--- NOTE | 2017-06-01 13:38 | DIAGNOSTIC IMAGING REPORT ---
RETROGRADE INCLUDES KUB HISTORY: LT URETERAL STENT EXCHANGE FLUOROSCOPY TIME: 32 seconds. FINDINGS: 3 fluoroscopic spot images were submitted for review. Initial images demonstrate a catheter and retrograde opacification within the left renal collecting system. This is followed by placement of a left ureteral stent. The proximal portion of the stent is located at the upper pole calyx. The distal stent was not included on this study. IMPRESSION: Fluoroscopy provided for left ureteral stent placement.. Electronically signed by: Fernie Barton M.D. 06/01/2017 1:37 PM Dictated Date/Time: 06/01/2017 1:35 PM
[2017-06-01] MEDS ORDERED: VANCOMYCIN IV 2,500 MG in SODIUM CHLORIDE 0.9% 500ML 500 ML IV SCH (14:00)
--- NOTE | 2017-06-01 14:10 | Anesthesiology Progress Note ---
Anesthesia Post Op Note Date & Time Jun 01, 2017 at 14:10 Vital Signs Pain Intensity: 0 Vital Signs Past 12 Hours Date Time Temp Pulse Resp B/P (MAP) Pulse Ox O2 Delivery O2 Flow Rate FiO2 06/01/17 13:55 37.1 70 20 121/81 97 Nasal Cannula 3 06/01/17 13:45 77 20 133/89 98 Nasal Cannula 3 06/01/17 13:35 70 16 103/81 99 Nasal Cannula 3 06/01/17 13:29 37.0 78 16 122/78 98 Nasal Cannula 3 06/01/17 11:51 36.7 18 138/73 (94) 97 Room Air 06/01/17 08:40 96 Room Air 06/01/17 08:00 Room Air 06/01/17 07:25 36.9 84 18 115/67 (83) 96 Room Air 06/01/17 07:04 37.1 84 20 126/85 (99) 96 Notes Mental Status: alert / awake / arousable, participated in evaluation Pt Amnestic to Procedure: Yes Nausea / Vomiting: adequately controlled Pain: adequately controlled Airway Patency, RR, SpO2: stable & adequate BP & HR: stable & adequate Hydration State: stable & adequate Anesthetic Complications: no major complications apparent
[2017-06-01] MEDS ORDERED: vancomycin IV (14:36)
[2017-06-01] MEDS ORDERED: OXYC-57 PO (14:36)
[2017-06-01] MEDS ORDERED: LPR25 PO (14:36)
--- NOTE | 2017-06-01 14:38 | Discharge Instructions ---
Discharge Instructions Date of Service Jun 01, 2017. Admission Reason for Admission: Complicated Uti Discharge Discharge Diagnosis / Problem: blood stream infection associated with urinary infection Discharge Goals Goal(s): Diagnostic testing, Therapeutic intervention Activity Recommendations Activity Limitations: as noted below Lifting Limitations: gradually increase as tolerated . Current Hospital Diet Patient's current hospital diet: Regular Diet Discharge Diet Recommended Diet: Regular Diet Procedures Procedures Performed: Cystoscopy, Left Retrograde Pyelogram, Left Ureteral Stent Exchange Pending Studies Studies pending at discharge: yes List of pending studies: send out cultures to [facility] Medical Emergencies . Who to Call and When: Medical Emergencies: If at any time you feel your situation is an emergency, please call 911 immediately. . Non-Emergent Contact Non-Emergency issues call your: Primary Care Provider, Surgeon (dr Connelly as directed), Urologist, Specialist (infectious disease as needed) Call Non-Emergent contact if: temperature is above 101, your pain is unusual for you . . "Provider Documentation" section prepared by Gerardo Cifuentes. .
[2017-06-01 15:00] LABS: CALCIUM 8.9 mg/dl (8.5-10.1); CREATININE 1.12 mg/dl (0.60-1.40); POTASSIUM 3.5 mmol/L (3.5-5.1)
--- NOTE | 2017-06-01 18:15 | Discharge Summary ---
Discharge Summary Date of Service Jun 01, 2017. Discharge Summary Admission Date: May 23, 2017 at 13:53 Discharge Date: Jun 01, 2017 Discharge Disposition: Home with services Principal Diagnosis: bacteremic, left ureteral stent replacement Immunizations: Have You Had Influenza Vaccine: No History of Tetanus Vaccine?: Yes History of Pneumococcal: No History of Hepatitis B Vaccine: Yes Medication Reconciliation New Medications: [vancomycin] () 2500 MG IV DAILY, #5 DOSE this is to treat blood stream infection associated with uti Metoprolol Tartrate (Lopressor) 25 Mg Tab 12.5 MG PO BID, #30 TAB 6 Refills Continued Medications: Albuterol Hfa (Ventolin Hfa) 200 Puffs/48489 Mcg Aers 2 PUFFS INH Q6H PRN for PRN, #1 INHALER Allopurinol (Zyloprim) 300 Mg Tab 1 TAB PO QPM for 30 Days, TAB 5 Refills Amlodipine (Norvasc) 5 Mg Tab 5 MG PO HS Clobetasol Propionate Emulsion (Clobetasol Propionate) 0.05 % Aer TOP BID PRN for rash Doxepin (Sinequan) 10 Mg Cap 10 MG PO DAILY PRN for Itching, CAP Montelukast Sodium (Singulair) 10 Mg Tab 10 MG PO PRN for Allergic Reaction, TAB Oxycodone/Acetaminophen 5MG/325MG (Percocet 5MG/325MG) Tab 1 TAB PO QID PRN for Pain for 30 Days, #40 TAB (This prescription has been renewed) PAIN Simvastatin (Zocor) 40 Mg Tab 40 MG PO HS Tramadol (Ultram) 50 Mg Tab 50 MG PO Q8H PRN for Pain, TAB Discontinued Medications: Lisinopril (Zestril) 20 Mg Tab 20 MG PO QAM Lisinopril (Lisinopril) 20 Mg Tab 20 MG PEG DAILY Discharge Exam Review of Systems: Constitutional: No fever, No chills Respiratory: No cough, No sputum Cardiovascular: No chest pain, No edema Abdomen: No pain, No nausea, No diarrhea Genitourinary - Male: No hematuria, No dysuria Physical Exam: General Appearance: WD/WN, + mild distress Eyes: normal inspection, sclerae normal Neck: supple, no JVD Respiratory/Chest: chest non-tender, lungs clear, normal breath sounds Cardiovascular: regular rate, rhythm, no murmur Abdomen / GI: normal bowel sounds, non tender, soft Extremities: no pedal edema, normal range of motion Neurologic/Psychiatric: alert, oriented x 3 Hospital Course 66-year-old man with history of high blood pressure, recent diagnosis of non- Hodgkin's lymphoma, obstructive lymphadenopathy status post ureteral stent bilaterally followed by removal of right ureteral stent and exchange of left ureteral stent 2 weeks ago. Has 2 of 2 blood cultures showing gram positive bacillus that is yet to be speciated, sent to [facility] Complicated UTI present on admission Left pyelonephritis in the setting of retained ureteral stent Left stent migration and possible partial malfunction, changed his stent on Blood cultures 2 out of 2 grew gram-positive bacilli, results were sent to [facility], clinically improved significantly on vancomycin, recent blood cultures May 29 are negative, will send home to complete vancomycin until 06/06, will have picc line Recent diagnosis of non-Hodgkin lymphoma, awaiting placement of port access this can be completed after 2 weeks of vancomycin, will arrange coordination for next week Hypertension, Hold lisinopril, Continue metoprolol at time of discharge. border line positive troponin, likely demand ischemia Lactobacillus for C. difficile prevention Total Time Spent: Greater than 30 minutes This includes examination of the patient, discharge planning, medication reconciliation, and communication with other providers. Discharge Instructions Please refer to the electronic Patient Visit Report (Discharge Instructions) for additional information. Additional Copies To Foster Connelly,
--- NOTE | 2017-06-05 12:28 | EDITING REQUIRED CODING QUERY ---
SEPSIS To promote full compliance with coding requirements relating to patient care, physician participation is requested in all cases of certified lactation counselor uncertainty. Please assist us with the question(s) below: In responding to this query, please exercise your independent professional judgement. The fact that a question is asked does not imply that any particular answer is desired or expected. We appreciate your clarification on this issue. Throughout the medical record, you have clearly documented a localized infection and your patient has clinical evidence of a generalized sepsis or severe sepsis. The term urosepsis is a nonspecific entity and is coded as an UTI. If the patient has sepsis, severe sepsis, from an urinary source or some other source, please clarify in your response below. The medical record reflects the following clinical findings: Patient admitted with pyelonephritis ..and underlying ureteral stent. To OR for ureteral stent exchange. Please check below the diagnosis you treated. Thanks for your help! [place] NENA Romeo [facility] xx( )Bacteremia (Nonspecific laboratory finding of bacteria in the blood) Specify Organism ( xx) Present on Admission ( ) Not present on admission ( ) Unable to clinically determine ( ) Septicemia (Systemic disease associated with the presence of pathogenic microorganisms in the blood): Specify Organism ( ) Present on Admission ( ) Not present on admission ( ) Unable to clinically determine () Sepsis Specify Organism Specify Associated Condition/Diagnosis () Present on Admission () Not present on admission () Unable to clinically determine ( ) Severe Sepsis (Sepsis associated with acute organ dysfunction) Specify Organism Specify Associated Condition/Diagnosis ( ) Present on Admission ( ) Not present on admission ( ) Unable to clinically determine ( ) Septic Shock (Severe sepsis with acute circulatory failure, unexplained by other causes) ( ) Present on Admission ( ) Not present on admission () Unable to clinically determine ( ) Other, patient has:
--- NOTE | 2017-06-05 12:32 | EDITING REQUIRED CODING QUERY ---
CODING QUERY To promote full compliance with coding requirements relating to patient care, provider participation is requested in all cases of medical advisor uncertainty. Please assist us with the question(s) below: Coding Question(s): Patient admitted with Pyelonephritis in the setting of a ureteral stent. Ureteral stent exchange was accomplished. Please document, if known or suspected, the etiology of the pyelonephritis. Thanks for your help! Thmoas Garduno [facility] Physician's Response(s): unknown Principal Diagnosis: "_that condition established after study, to be chiefly responsible for occasioning the admission of the patient to the hospital for care." Co-Existing Principal Diagnosis: "_when two or more diagnoses equally meet the criteria for principal diagnosis as determined by the circumstances of admission, diagnostic work up, and/or therapy provided, and the Alphabetic Index, Tabular List, or another coding guideline does not provide sequencing direction, any one of the diagnoses may be sequenced first." "When the physician has documented what appears to be a current diagnosis in the body of the record, but has not included the diagnosis in the final diagnostic statement, the physician should be asked whether the diagnosis should be added." (Source Coding [facility] 2 QTR90. p3-4)
== END 2017-06-01 18:31 | disposition home health service (06) | DRG 872 ==
LOC: C.EDB 09:15 → C.MED 13:53 → EDBEDREQSVC 14:02 → CANRESERV 14:16 → ENRESERV 14:16 → EDBEDREQSVC 14:32 → ENRESERV 15:15
PROVIDERS: ADMIT Internal Medicine; ATTEND Internal Medicine
PROC: 0T778DZ Dilation of Left Ureter with Intraluminal Device, Via Natural or Artificial Opening Endoscopic (ICD-10-PCS; principal; 2017-06-01 11:45)
PROC: 0TP98DZ Removal of Intraluminal Device from Ureter, Via Natural or Artificial Opening Endoscopic (ICD-10-PCS; principal; 2017-06-01 11:45)
PROC: BT14ZZZ Fluoroscopy of Kidneys, Ureters and Bladder (ICD-10-PCS; principal; 2017-06-01 11:45)
PROC: 02HV33Z Insertion of Infusion Device into Superior Vena Cava, Percutaneous Approach (ICD-10-PCS; 2017-06-01 11:45)
DX: R78.81 Bacteremia (principal); N12 Tubulo-interstitial nephritis, not specified as acute or chronic; C85.90 Non-Hodgkin lymphoma, unspecified, unspecified site; I24.8 Other forms of acute ischemic heart disease; N13.6 Pyonephrosis; N17.9 Acute kidney failure, unspecified; G56.00 Carpal tunnel syndrome, unspecified upper limb; Z87.440 Personal history of urinary (tract) infections; Z88.0 Allergy status to penicillin; Z88.1 Allergy status to other antibiotic agents; N18.3 Chronic kidney disease, stage 3 (moderate); I12.9 Hypertensive chronic kidney disease with stage 1 through stage 4 chronic kidney disease, or unspecified chronic kidney disease; E87.6 Hypokalemia; Y83.1 Surgical operation with implant of artificial internal device as the cause of abnormal reaction of the patient, or of later complication, without mention of misadventure at the time of the procedure; Y92.019 Unspecified place in single-family (private) house as the place of occurrence of the external cause; Z91.040 Latex allergy status

== ENCOUNTER 2017-06-12 06:38 | Day surgery (SDC) | payer BC ==
[~2017-06-12] VITALS: Ht 190.5 cm; Wt 111.4 kg
[~2017-06-12 06:38] MED LIST changes: +CLINDAMYCIN IV 900 MG in DEXTROSE 5% 50ML 44 ML IV SCH; +CLINDAMYCIN IV 900 MG in DEXTROSE 5% 50ML IV SCH; +FENTANYL CITRATE INJ 50 MCG/1 ML 2 ML VIAL ONE; +LACTATED RINGER'S 1000ML 1,000 ML IV SCH; +LIDOCAINE HCL 2% 2 ML VIAL (20MG/ML) ONE; -LISI-725 PO; +LPR25 PO; +MIDAZOLAM HCL 1 MG/ML 2ML VIAL ONE; +MONT1TAB3 PO; +PROPOFOL IV EMULSION 10 MG/ML 20 ML VIAL IV ONE; +vancomycin IV
[2017-06-12] MEDS ORDERED: HYDROmorphone INJ 1 MG/ML SYR IV PRN (07:00)
[2017-06-12] MEDS ORDERED: PROMETHAZINE HCL INJ 12.5 MG in SODIUM CHLORIDE 0.9% 50ML 50 ML IV PRN (07:00)
[2017-06-12] MEDS ORDERED: PHENYLEPHRINE 100MCG/ML 5ML SYR IV PRN (07:00)
[2017-06-12] MEDS ORDERED: EpHEDrine SULFATE INJ 50 MG/ML AMP IV PRN (07:00)
[2017-06-12] MEDS ORDERED: FENTANYL CITRATE INJ 50 MCG/1 ML 2 ML VIAL IV PRN (07:00)
[2017-06-12] MEDS ORDERED: ONDANSETRON INJ 2 MG/ML 2 ML VIAL IV PRN ×2 (07:00→10:00)
[2017-06-12] MEDS ORDERED: ATROPINE SULFATE 0.1 MG/ML 5ML SYR IV PRN (07:00)
[2017-06-12 07:22] VITALS: BP 154/97; PULSE 78; TEMP 36.9; O2SAT 96; Ht 190.5 cm; Wt 111.4 kg
[2017-06-12] MEDS ORDERED: PROPOFOL IV EMULSION 10 MG/ML 20 ML VIAL IV ONE (07:49)
[2017-06-12] MEDS ORDERED: LIDOCAINE HCL 2% 2 ML VIAL (20MG/ML) ONE (07:49)
[2017-06-12] MEDS ORDERED: MIDAZOLAM HCL 1 MG/ML 2ML VIAL ONE ×2 (07:49→09:03)
[2017-06-12] MEDS ORDERED: FENTANYL CITRATE INJ 50 MCG/1 ML 2 ML VIAL ONE ×2 (07:49→09:23)
--- NOTE | 2017-06-12 08:39 | Discharge Instructions ---
Discharge Instructions Date of Service Jun 12, 2017. Visit Reason for Visit: Lymphoma Discharge Discharge Diagnosis / Problem: A-port Discharge Goals Goal(s): Therapeutic intervention Activity Recommendations Activity Limitations: resume your previous activity Shower/Bathe: no limitations Anesthesia . Post Anesthesia Instructions: If you have had General Anesthesia or IV Sedation: * Do not drive today. * Resume driving when surgeon permits. * Do not make important decisions or sign legal documents today. * Call surgeon for: 1. Temperature elevations greater than 101 degrees F. 2. Uncontrollable pain. 3. Excessive bleeding. 4. Persistent nausea and vomiting. 5. Medication intolerance (nausea, vomiting or rash). * For nausea and vomiting use only clear liquids such as: tea, soda, bouillon until nausea subsides, then gradually increase diet as tolerated. * If you have any concerns or questions, call your surgeon's office. If physician is unavailable and it is an emergency, call 911 or go to the nearest emergency room. . Instructions / Follow-Up Instructions / Follow-Up Dr. Connelly in 1-2 weeks as planned, call [phone] for any questions OK for port to be used Diet Recommendations Recommended Home Diet: no limitations Pending Studies Studies pending at discharge: no Medical Emergencies . Who to Call and When: Medical Emergencies: If at any time you feel your situation is an emergency, please call 911 immediately. . Non-Emergent Contact Non-Emergency issues call your: Surgeon Call Non-Emergent contact if: you have a fever, temperature is above 101.5, your pain is not controlled, wound has increased redness . . "Provider Documentation" section prepared by Alli Gómez. .
[2017-06-12] MEDS ORDERED: LIDOCAINE/EPINEPHRINE 1% 20 ML VIAL ONE (08:50)
[2017-06-12] MEDS ORDERED: HEPARIN SOD (PORCINE) 1000 UNIT/ML 10 ML VIAL ONE (08:50)
[2017-06-12] MEDS ORDERED: BUPIVACAINE 0.5 % 5 MG/1 ML MPF 30ML VIAL ONE (08:50)
[2017-06-12] MEDS ORDERED: SODIUM CHLORIDE 0.9% 1000ML 1,000 ML IV SCH (09:48)
--- NOTE | 2017-06-12 09:48 | [facility] Post Operative Brief Note ---
Immediate Operative Summary Operative Date Jun 12, 2017. Pre-Operative Diagnosis Lymphoma Post-Operative Diagnosis Lymphoma Procedure(s) Performed Insertion of Mediport, Right Internal Jugular, with Fluoroscopy Surgeon Dr. Foster Connelly Short Order Fry Cook Surgeon(s) None Estimated Blood Loss 6ML Findings Consistent with Post-Op Diagnosis Specimens No pathology specimens per surgeon Drains None Anesthesia Type MAC Complication(s) none Disposition Accompanied Pt To Recover: no Disposition: Recovery Room / PACU
--- NOTE | 2017-06-12 09:54 | [facility] Operative Report ---
Operative Report Operative Date Jun 12, 2017. Pre-Operative Diagnosis Lymphoma Post-Operative Diagnosis Same Procedure(s) Performed Right internal jugular vein port placement with real-time ultrasound guidance and fluoroscopy Surgeon Dr. Foster Connelly Cuff Turner Machine Operator Surgeon(s) None Estimated Blood Loss 6ML Findings Right internal jugular vein accessed using real-time ultrasound guidance. Catheter placed to cavoatrial junction using fluoroscopy assistance. Specimens No pathology specimens per surgeon Drains None Anesthesia MAC/local Complication(s) None Disposition Recovery Room / PACU Indications 66-year-old male with lymphoma requiring chemotherapy, plan for port placement. The risks of the procedure were discussed, all questions were answered, and the patient agreed to proceed with surgery as planned. Description of Procedure The patient was properly identified, consented, and taken to the operating room where he was placed in the supine position with both arms tucked and a shoulder roll placed vertically. Monitored anesthesia care was induced. SCDs and a safety belt were placed. Preoperative antibiotics were administered. The patient's chest and neck was prepped and draped in the standard sterile fashion. Surgical timeout was performed and all parties were in agreement that this was the correct patient and procedure to be performed and we continued as planned. The patient was placed in Trendelenburg position. Local anesthetic was injected along the skin incision. Using real-time ultrasound guidance the right internal jugular vein was accessed using the access needle. The wire was placed and the needle was removed. Fluoroscopy confirmed placement into the internal jugular vein extending into the superior vena cava. A transverse skin incision was made in the right chest and a pocket was created for the port. A subcutaneous tunnel was created and the catheter was brought from the neck incision into the chest incision. The dilator and peel-away sheath were inserted over the wire. The catheter was then inserted through the peel-away sheath and fluoroscopy confirmed placement into the superior vena cava. The catheter was cut and attached to the port. The port was secured into place with 3-0 Prolene sutures. A final x-ray revealed good placement of the port. The wound was irrigated and hemostasis was confirmed. The skin was closed with interrupted 3-0 Vicryl deep dermal sutures, followed by 4-0 Monocryl running subcuticular suture. Dermabond was placed over the wound. The port was accessed and lynette blood easily and flushed easily. It was flushed with heparinized saline. The patient taken to the PACU where he recovered without apparent incident. All sponge, instrument and needle counts were correct at the conclusion of the procedure. The patient tolerated the procedure well. Chest x-ray was pending at the time of this dictation. I attest to the content of the Intraoperative Record and any orders documented therein. Any exceptions are noted below.
--- NOTE | 2017-06-12 09:55 | [facility] Operative Report ---
Operative Report Operative Date Jun 12, 2017. Pre-Operative Diagnosis Lymphoma Surgeon Dr. Foster Connelly Findings Real-time ultrasound guidance was used to access the right internal jugular vein. Fluoroscopy was used and interpreted by the operative surgeon throughout the procedure to assist in placement of the catheter and port. A total of 22.5 seconds of fluoroscopy time was utilized. I attest to the content of the Intraoperative Record and any orders documented therein. Any exceptions are noted below.
[2017-06-12] MEDS ORDERED: OXYCODONE/ACETAMINOPHEN 5-325 TAB PO PRN ×2 (10:00)
[2017-06-12] MEDS ORDERED: MoRPHine SULFATE 2 MG/ML CARP IV PRN (10:00)
[2017-06-12] MEDS ORDERED: MoRPHine SULFATE 4 MG/ML 1 ML CARP\\VIAL IV PRN (10:00)
[2017-06-12] MEDS ORDERED: KETOROLAC TROMETHAMINE 15 MG/ML VIAL IV. PRN (10:00)
--- NOTE | 2017-06-12 10:09 | DIAGNOSTIC IMAGING REPORT ---
CHEST ONE VIEW PORTABLE CLINICAL HISTORY: 66 years-old Male presenting with port placement. TECHNIQUE: Portable upright AP view of the chest was obtained. COMPARISON: 05/23/2017. FINDINGS: Right internal jugular Mediport terminates in the mid SVC. Associated minimal subcutaneous gas evident at the right base of the neck Atherosclerosis of aortic arch. Cardiac silhouette normal in size. Mild prominence of pulmonary vasculature, unchanged. Elevation of the left hemidiaphragm unchanged. No focal opacity. No large effusion or pneumothorax. Osseous structures normal. IMPRESSION: 1. Appropriately positioned right internal jugular Mediport. No pneumothorax. 2. Suggestion of volume overload. Electronically signed by: Refugio Stearns M.D. 06/12/2017 10:07 AM Dictated Date/Time: 06/12/2017 10:06 AM
[2017-06-12 10:35] VITALS: BP 107/75; PULSE 85; TEMP 36.9; O2SAT 93
--- NOTE | 2017-06-12 10:35 | Anesthesiology Progress Note ---
Anesthesia Post Op Note Date & Time Jun 12, 2017 at 10:35 Vital Signs Pain Intensity: 0 Vital Signs Past 12 Hours Date Time Temp Pulse Resp B/P (MAP) Pulse Ox O2 Delivery O2 Flow Rate FiO2 06/12/17 10:26 83 13 06/12/17 10:26 82 13 114/77 91 06/12/17 10:21 85 17 92 06/12/17 10:21 86 17 06/12/17 10:20 110/82 06/12/17 10:20 110/82 06/12/17 10:19 88 15 93 06/12/17 10:19 89 15 06/12/17 10:19 89 15 06/12/17 10:19 88 15 93 06/12/17 10:16 120/74 06/12/17 10:16 120/74 06/12/17 10:14 85 24 93 06/12/17 10:14 86 24 06/12/17 10:14 85 24 93 06/12/17 10:14 86 24 06/12/17 10:12 37.2 84 22 120/74 (91) 93 Room Air Oxymask 06/12/17 10:10 115/80 06/12/17 10:10 115/80 06/12/17 10:09 85 16 06/12/17 10:09 86 16 94 06/12/17 10:09 85 16 06/12/17 10:09 86 16 94 06/12/17 10:08 86 22 94 06/12/17 10:08 85 22 06/12/17 10:06 107/78 06/12/17 10:03 89 16 93 06/12/17 10:03 90 16 06/12/17 10:01 113/67 06/12/17 09:58 79 6 97 06/12/17 09:58 79 6 06/12/17 09:56 106/66 06/12/17 09:53 85 18 113/71 97 06/12/17 09:53 83 18 06/12/17 09:53 36.7 84 12 113/71 97 Oxymask 10 06/12/17 07:22 36.9 78 18 154/97 (116) 96 Room Air Notes Mental Status: alert / awake / arousable, participated in evaluation Pt Amnestic to Procedure: Yes Nausea / Vomiting: adequately controlled Pain: adequately controlled Airway Patency, RR, SpO2: stable & adequate BP & HR: stable & adequate Hydration State: stable & adequate Anesthetic Complications: no major complications apparent
[2017-06-12 11:05] VITALS: BP 110/72; PULSE 92; TEMP 36.4; O2SAT 93
== END 2017-06-12 11:20 | disposition home or self-care (01) ==
LOC: C.ACU 06:38
PROVIDERS: ATTEND Surgery
DX: C85.90 Non-Hodgkin lymphoma, unspecified, unspecified site (principal); J45.909 Unspecified asthma, uncomplicated; I10 Essential (primary) hypertension; E78.5 Hyperlipidemia, unspecified; Z87.442 Personal history of urinary calculi; Z91.040 Latex allergy status; Z88.0 Allergy status to penicillin; Z96.659 Presence of unspecified artificial knee joint; Z82.49 Family history of ischemic heart disease and other diseases of the circulatory system; Z80.0 Family history of malignant neoplasm of digestive organs; Z80.42 Family history of malignant neoplasm of prostate

== ENCOUNTER → 2017-07-25 | Outpatient (CLI) | payer BC ==
[~2017-07-25] MED LIST changes: -CLINDAMYCIN IV 900 MG in DEXTROSE 5% 50ML 44 ML IV SCH; -CLINDAMYCIN IV 900 MG in DEXTROSE 5% 50ML IV SCH; -FENTANYL CITRATE INJ 50 MCG/1 ML 2 ML VIAL ONE; -LACTATED RINGER'S 1000ML 1,000 ML IV SCH; -LIDOCAINE HCL 2% 2 ML VIAL (20MG/ML) ONE; -MIDAZOLAM HCL 1 MG/ML 2ML VIAL ONE; -PROPOFOL IV EMULSION 10 MG/ML 20 ML VIAL IV ONE; -vancomycin IV
[2017-07-25 08:51] LABS: HEMATOCRIT 34.1 % (42-52); HEMOGLOBIN 11.1 g/dL (14.0-18.0); MEAN CELL VOLUME 87.7 fL (80-100); MEAN CORPUSCULAR HEMOGLOBIN 28.5 pg (25-34); MEAN CORPUSCULAR HGB CONC 32.6 g/dl (32-36); MEAN PLATELET VOLUME 9.1 fL (7.4-10.4); NUCLEATED RED BLOOD CELL ABS 0.02 K/uL (0-0); PLATELET COUNT 250 K/uL (130-400); RED CELL DISTRIBUTION WIDTH CV 16.4 % (11.5-14.5); RED CELL DISTRIBUTION WIDTH SD 52.8 fL (36.4-46.3); WHITE BLOOD COUNT 5.43 K/uL (4.8-10.8)
[2017-07-25 09:15] LABS: BASO % 1.1 %; BASO ABS # 0.06 K/uL (0-0.2); EOS % 1.8 %; IG# 0.34 K/uL (0.00-0.02); LYMPH % 14.7 %; MONO % 22.1 %; NEUT ABS # 2.93 K/uL (1.4-6.5)
[2017-07-25 09:52] LABS: BLOOD UREA NITROGEN 17 mg/dl (7-18); CREATININE 1.05 mg/dl (0.60-1.40); GLUCOSE 95 mg/dl (70-99); POTASSIUM 3.7 mmol/L (3.5-5.1); SODIUM 140 mmol/L (136-145)
[2017-07-25 09:53] LABS: ALKALINE PHOSPHATASE 71 U/L (45-117); ALT/SGPT 20 U/L (12-78); AST/SGOT 40 U/L (15-37); CALCIUM 8.9 mg/dl (8.5-10.1); CARBON DIOXIDE 27 mmol/L (21-32); TOTAL PROTEIN 7.1 gm/dl (6.4-8.2)
== END | disposition home or self-care (01) ==
LOC: C.LABSPEC 08:19
PROVIDERS: ATTEND Internal Medicine Hematology & Oncology
DX: C85.93 Non-Hodgkin lymphoma, unspecified, intra-abdominal lymph nodes (principal)

== ENCOUNTER → 2017-10-02 | Outpatient (CLI) | payer BC ==
[~2017-10-02] MED LIST changes: -ALLO300T2 PO; -AMLO-110 PO; +AMLO5TAB3 PO; +CIPR-255 PO; +DIPH1TAB87 PO; -DOXE10CA PO; +ONDA-170 PO; +PROC10TA PO; -TRAM-10 PO
[2017-10-02 15:25] LABS: ALBUMIN 3.1 gm/dl (3.4-5.0); ALKALINE PHOSPHATASE 91 U/L (45-117); ALT/SGPT 22 U/L (12-78); AST/SGOT 21 U/L (15-37); BLOOD UREA NITROGEN 21 mg/dl (7-18); CALCIUM 8.1 mg/dl (8.5-10.1); CARBON DIOXIDE 26 mmol/L (21-32); CREATININE 1.13 mg/dl (0.60-1.40); GLUCOSE 77 mg/dl (70-99); POTASSIUM 3.6 mmol/L (3.5-5.1); SODIUM 141 mmol/L (136-145); TOTAL PROTEIN 6.4 gm/dl (6.4-8.2)
[2017-10-02 15:38] LABS: HEMOGLOBIN 9.9 g/dL (14.0-18.0); MEAN CELL VOLUME 89.9 fL (80-100); MEAN CORPUSCULAR HEMOGLOBIN 28.7 pg (25-34); MEAN CORPUSCULAR HGB CONC 31.9 g/dl (32-36); MEAN PLATELET VOLUME 9.2 fL (7.4-10.4); NUCLEATED RED BLOOD CELL ABS 0.03 K/uL (0-0); PLATELET COUNT 382 K/uL (130-400); RED CELL DISTRIBUTION WIDTH CV 18.9 % (11.5-14.5); RED CELL DISTRIBUTION WIDTH SD 61.6 fL (36.4-46.3); WHITE BLOOD COUNT 3.25 K/uL (4.8-10.8)
== END | disposition home or self-care (01) ==
LOC: C.LABSPEC 14:10
PROVIDERS: ATTEND Internal Medicine Hematology & Oncology
DX: C85.93 Non-Hodgkin lymphoma, unspecified, intra-abdominal lymph nodes (principal)

== ENCOUNTER → 2017-10-10 | Outpatient (CLI) | payer BC ==
[2017-10-10 15:10] LABS: BASO % 0.6 %; BASO ABS # 0.03 K/uL (0-0.2); EOS % 1.1 %; EOS ABS # 0.05 K/uL (0-0.5); HEMATOCRIT 37.8 % (42-52); HEMOGLOBIN 12.2 g/dL (14.0-18.0); LYMPH % 18.3 %; LYMPH ABS # 0.87 K/uL (1.2-3.4); MEAN CELL VOLUME 87.7 fL (80-100); MEAN CORPUSCULAR HEMOGLOBIN 28.3 pg (25-34); MEAN CORPUSCULAR HGB CONC 32.3 g/dl (32-36); MEAN PLATELET VOLUME 10.6 fL (7.4-10.4); MONO % 4.4 %; MONO ABS # 0.21 K/uL (0.11-0.59); NEUT % 71.4 %; NEUT ABS # 3.39 K/uL (1.4-6.5); PLATELET COUNT 197 K/uL (130-400); RED CELL DISTRIBUTION WIDTH CV 17.8 % (11.5-14.5); RED CELL DISTRIBUTION WIDTH SD 57.3 fL (36.4-46.3); WHITE BLOOD COUNT 4.75 K/uL (4.8-10.8)
[2017-10-10 15:30] LABS: ALBUMIN 3.3 gm/dl (3.4-5.0); ALKALINE PHOSPHATASE 85 U/L (45-117); ALT/SGPT 30 U/L (12-78); AST/SGOT 23 U/L (15-37); BLOOD UREA NITROGEN 32 mg/dl (7-18); CALCIUM 8.3 mg/dl (8.5-10.1); CARBON DIOXIDE 33 mmol/L (21-32); CREATININE 1.22 mg/dl (0.60-1.40); GLUCOSE 143 mg/dl (70-99); POTASSIUM 3.2 mmol/L (3.5-5.1); SODIUM 138 mmol/L (136-145); TOTAL PROTEIN 6.5 gm/dl (6.4-8.2)
== END | disposition home or self-care (01) ==
LOC: C.LABSPEC 13:58
PROVIDERS: ATTEND Internal Medicine Hematology & Oncology
DX: C85.93 Non-Hodgkin lymphoma, unspecified, intra-abdominal lymph nodes (principal)

== ENCOUNTER → 2017-10-24 | Outpatient (CLI) | payer BC ==
[2017-10-24 14:08] LABS: HEMATOCRIT 30.9 % (42-52); HEMOGLOBIN 9.8 g/dL (14.0-18.0); MEAN CELL VOLUME 91.4 fL (80-100); MEAN CORPUSCULAR HGB CONC 31.7 g/dl (32-36); MEAN PLATELET VOLUME 9.1 fL (7.4-10.4); NUCLEATED RED BLOOD CELL ABS 0.11 K/uL (0-0); PLATELET COUNT 170 K/uL (130-400); RED CELL DISTRIBUTION WIDTH CV 20.2 % (11.5-14.5); WHITE BLOOD COUNT 17.12 K/uL (4.8-10.8)
[2017-10-24 14:28] LABS: ALBUMIN 3.4 gm/dl (3.4-5.0); ALKALINE PHOSPHATASE 119 U/L (45-117); ALT/SGPT 17 U/L (12-78); AST/SGOT 22 U/L (15-37); BLOOD UREA NITROGEN 20 mg/dl (7-18); CALCIUM 8.3 mg/dl (8.5-10.1); CARBON DIOXIDE 28 mmol/L (21-32); CREATININE 1.11 mg/dl (0.60-1.40); GLUCOSE 111 mg/dl (70-99); POTASSIUM 3.8 mmol/L (3.5-5.1); SODIUM 141 mmol/L (136-145); TOTAL PROTEIN 6.6 gm/dl (6.4-8.2)
== END | disposition home or self-care (01) ==
LOC: C.LABSPEC 13:47
PROVIDERS: ATTEND Internal Medicine Hematology & Oncology
DX: C85.93 Non-Hodgkin lymphoma, unspecified, intra-abdominal lymph nodes (principal)

== ENCOUNTER → 2017-10-31 | Outpatient (CLI) | payer BC ==
[2017-10-31 12:22] LABS: BASO % 0.3 %; BASO ABS # 0.02 K/uL (0-0.2); EOS % 0.5 %; EOS ABS # 0.04 K/uL (0-0.5); HEMATOCRIT 33.7 % (42-52); HEMOGLOBIN 11.2 g/dL (14.0-18.0); IG# 0.35 K/uL (0.00-0.02); LYMPH % 12.3 %; LYMPH ABS # 0.94 K/uL (1.2-3.4); MEAN CELL VOLUME 88.5 fL (80-100); MEAN CORPUSCULAR HEMOGLOBIN 29.4 pg (25-34); MEAN CORPUSCULAR HGB CONC 33.2 g/dl (32-36); MEAN PLATELET VOLUME 9.1 fL (7.4-10.4); MONO ABS # 0.61 K/uL (0.11-0.59); NEUT % 74.3 %; NEUT ABS # 5.71 K/uL (1.4-6.5); PLATELET COUNT 226 K/uL (130-400); RED CELL DISTRIBUTION WIDTH CV 19.3 % (11.5-14.5); RED CELL DISTRIBUTION WIDTH SD 61.8 fL (36.4-46.3); WHITE BLOOD COUNT 7.67 K/uL (4.8-10.8)
[2017-10-31 12:52] LABS: ALBUMIN 3.4 gm/dl (3.4-5.0); ALKALINE PHOSPHATASE 94 U/L (45-117); ALT/SGPT 26 U/L (12-78); AST/SGOT 19 U/L (15-37); BLOOD UREA NITROGEN 41 mg/dl (7-18); CALCIUM 8.3 mg/dl (8.5-10.1); CARBON DIOXIDE 33 mmol/L (21-32); GLUCOSE 126 mg/dl (70-99); POTASSIUM 3.1 mmol/L (3.5-5.1); SODIUM 134 mmol/L (136-145); TOTAL PROTEIN 6.5 gm/dl (6.4-8.2)
== END | disposition home or self-care (01) ==
LOC: C.LABSPEC 12:15
PROVIDERS: ATTEND Nurse Practitioner Family
DX: C85.93 Non-Hodgkin lymphoma, unspecified, intra-abdominal lymph nodes (principal)